=== PATIENT | female | born 1945 | race Caucasian/White ===

== ENCOUNTER → 2017-06-12 14:40 | Outpatient (CLI) | payer MEDICARE, OTHER, SELFPAY ==
--- NOTE | 2017-06-12 15:14 | RAD_ITS ---
STUDY: X-RAY - RIGHT SHOULDER REASON FOR EXAM: Female, 71 years old. Pain TECHNIQUE: 4 view(s) of the shoulder. COMPARISON: None. FINDINGS: Normal glenohumeral articulation. Normal acromioclavicular joint. Normal acromion. Normal humeral head and visualized proximal humerus. The soft tissue structures are unremarkable. Normal visualized pulmonary apex. RAD/Shoulder min 2 Views IMPRESSION: Normal x-ray examination of the shoulder. Electronically Signed: Derek Reyes MD at 22:26 EST Tel , Service support ,
--- NOTE | 2017-06-12 15:25 | RAD_ITS ---
STUDY: X-RAY - LEFT SHOULDER REASON FOR EXAM: Female, 71 years old. Pain TECHNIQUE: 4 view(s) of the shoulder. COMPARISON: None. FINDINGS: There is small calcification at the infraspinatus tendon insertion. Normal glenohumeral articulation. Normal acromioclavicular joint. Normal acromion. Normal humeral head and visualized proximal humerus. Normal visualized pulmonary apex. RAD/Shoulder min 2 Views IMPRESSION: Suggestion of mild insertional infraspinatus calcific tendinosis Electronically Signed: Derek Reyes MD at 22:25 EST Tel , Service support ,
== END ==
PROVIDERS: Family Provider Family Medicine Geriatric Medicine; PCP Family Medicine Geriatric Medicine; Visit Provider Internal Medicine Medical Oncology
DX: M25.519 Pain in unspecified shoulder (principal)
CPT/HCPCS: 73030

== ENCOUNTER → 2017-08-10 08:17 | Outpatient (CLI) | payer MEDICARE, OTHER, SELFPAY ==
[2017-08-10 09:54] LABS: Hematocrit 43.7 % (37-47); Mean Corp Hgb Conc 34.3 g/gl (32-36); Mean Corpuscular Hgb 31.3 pg (27.0-32.0); Mean Corpuscular Volume 91.2 fL (81-99); Mean Platelet Vol. 9.1 fl (6.2-12.0); Platelet Count 190 K/mm3 (150-450); RBC Distribution Width CV 12.8 % (11.6-14.6); RBC Distribution Width SD 41.7 fl (35.1-43.9); Red Blood Count 4.79 M/mm3 (4.2-5.4); White Blood Count 5.8 K/mm3 (4.4-11.0)
[2017-08-10 09:58] LABS: Scan Indicated on CBC? Y/N NO
[2017-08-10 10:22] LABS: Microalbumin,Random Urine 11.3 mg/L (NO RANGE EST.); Microalbumin:Creatinine Ratio 8.8 mg/g CRE (<30 mg/g CRE)
[2017-08-10 10:24] LABS: Albumin, Serum 3.5 g/dL (3.2-5.0); BUN 24 mg/dL (7-18); BUN/Creat Ratio 22.2 RATIO (10-20); Calcium,Total 8.5 mg/dL (8.5-10.1); Chloride 109 mmol/L (98-107); Creatinine, Serum 1.08 mg/dL (0.55-1.02); EST Glomerular Filtration Rate 53 mL/min (>60); Est Glom Filt Rate - Afr Amer 64 mL/min (>60); Glucose 84 mg/dL (74-106); Magnesium 2.2 mg/dL (1.6-2.6); Phosphorus 2.6 mg/dL (2.5-4.9); Potassium 3.9 mmol/L (3.5-5.1); Sodium Level 142 mmol/L (136-145)
[2017-08-10 10:43] LABS: PTHIN 109.1 pg/mL (18.4-80.1); Vitamin D,25 Hydroxy 58.8 ng/mL (29.95-100.01)
== END ==
PROVIDERS: Family Provider Family Medicine Geriatric Medicine; PCP Family Medicine Geriatric Medicine; Visit Provider Internal Medicine Nephrology
DX: E55.9 Vitamin D deficiency, unspecified (principal); N18.3 Chronic kidney disease, stage 3 (moderate); D63.1 Anemia in chronic kidney disease
CPT/HCPCS: 36415; 80069; 82043; 82306; 82570; 83735; 83970; 85027

== ENCOUNTER → 2017-09-04 12:38 | Outpatient (CLI) | payer MEDICARE, OTHER, SELFPAY ==
--- NOTE | 2017-09-04 12:40 | BI_ITS ---
MAMMOGRAPHY - BILATERAL SCREENING REASON FOR EXAM: Female, 71 years old. Routine annual screening examination. PERTINENT HISTORY: Aunt with breast cancer. TECHNIQUE: Digital bilateral breast sunita (3D mammographic acquisition) in the CC and MLO projections. 2-D mediolateral oblique (MLO) and craniocaudad (CC) views of both breasts were obtained. CAD: Full Field Digital Mammography with Computer Added Detection was performed. COMPARISON: Comparison is made with prior study dated August 31, 2016 and August 30, 2015. FINDINGS: Breast Composition: There are scattered areas of fibroglandular density. There are no dominant masses or suspicious calcifications. No other significant abnormalities are identified. There has been no significant change since the prior study. BI/SCREENING MAMM (CAD), BILAT IMPRESSION: Stable bilateral screening mammogram. Yearly follow-up mammogram recommended. (A) ASSESSMENT CATEGORY: BIRADS Category 1: Negative. A letter regarding these results will be sent to the patient by the facility within 30 days. Approximately 10% of breast cancers are not detected by mammography. A normal mammogram should not delay biopsy of a clinically suspicious abnormality. [id number] Electronically Signed: Amandeep Porter MD at 8:18 EDT Tel [phone], Service support ,
== END ==
PROVIDERS: Family Provider Family Medicine Geriatric Medicine; PCP Family Medicine Geriatric Medicine; Visit Provider Internal Medicine Medical Oncology
DX: Z12.31 Encounter for screening mammogram for malignant neoplasm of breast (principal)
CPT/HCPCS: 77063; 77067

== ENCOUNTER → 2017-10-24 10:13 | Outpatient (CLI) | payer MEDICARE, OTHER, SELFPAY ==
[2017-10-24 13:18] LABS: Absolute Lymphocyte Count 1.32 X10^3/ul (0.83-4.51); Absolute Neutrophil Count 3.9 X10^3/uL (2.0-7.7); Basophil# 0.02 X10^3/uL; Basophil% 0.3 % (0-1); Eosinophil# 0.09 X10^3/uL; Eosinophils% 1.5 % (0-5); Hematocrit 47.8 % (37-47); Hemoglobin 15.7 g/dl (12.0-15.0); Lymphocyte # 1.32 X10^3/ul (4.0); Lymphocyte % 22.7 % (19-41); Mean Corp Hgb Conc 32.8 g/gl (32-36); Mean Corpuscular Volume 91.4 fL (81-99); Mean Platelet Vol. 9.6 fl (6.2-12.0); Monocyte# 0.47 X10^3/uL; Monocyte% 8.1 % (0-10); Neutrophil # 3.91 X10^3/uL (2.7-7.7); Neutrophil % 67.2 % (47-70); Platelet Count 198 K/mm3 (150-450); RBC Distribution Width CV 13.2 % (11.6-14.6); RBC Distribution Width SD 43.6 fl (35.1-43.9); Red Blood Count 5.23 M/mm3 (4.2-5.4); White Blood Count 5.8 K/mm3 (4.4-11.0)
[2017-10-24 13:27] LABS: Vitamin D,25 Hydroxy 52.1 ng/mL (29.95-100.01)
[2017-10-24 13:29] LABS: POSITIVE COUNT NO; POSITIVE DIFFERENTIAL NO; POSITIVE MORPHOLOGY NO
[2017-10-24 13:34] LABS: ALB/GLOB Ratio 0.9 RATIO (0.9-2.4); AST(SGOT) 24 U/L (15-37); Alanine Aminotransfer ALT/SGPT 18 U/L (13-56); Albumin, Serum 3.6 g/dL (3.2-5.0); Alkaline Phosphatase 80 U/L (45-117); Anion Gap 7 (5-15); BUN 24 mg/dL (7-18); BUN/Creat Ratio 19.2 RATIO (10-20); Chloride 107 mmol/L (98-107); Creatinine, Serum 1.25 mg/dL (0.55-1.02); EST Glomerular Filtration Rate 45 mL/min (>60); Est Glom Filt Rate - Afr Amer 54 mL/min (>60); Globulin 4.2 g/dL (2.2-4.2); Glucose 84 mg/dL (74-106); Protein, Total 7.8 g/dL (6.4-8.2); Sodium Level 140 mmol/L (136-145); Thyroid Stim Hormone (TSH) 1.65 uIU/mL (0.358-3.74)
== END ==
PROVIDERS: Family Provider Family Medicine Geriatric Medicine; PCP Family Medicine Geriatric Medicine; Visit Provider Family Medicine Geriatric Medicine
DX: R53.83 Other fatigue (principal); E55.9 Vitamin D deficiency, unspecified
CPT/HCPCS: 36415; 80053; 82306; 84443; 85025

== ENCOUNTER → 2018-02-08 07:59 | Outpatient (CLI) | payer MEDICARE, OTHER, SELFPAY ==
[2018-02-08 08:19] LABS: Bacteria 0 SEEN /hpf (None Seen); Mucous, Urine 0 SEEN /hpf (<or=2+)
[2018-02-08 08:52] LABS: Hematocrit 46.9 % (37-47); Hemoglobin 15.3 g/dl (12.0-15.0); Mean Corp Hgb Conc 32.6 g/gl (32-36); Mean Platelet Vol. 9.2 fl (6.2-12.0); Platelet Count 200 K/mm3 (150-450); RBC Distribution Width CV 12.9 % (11.6-14.6); RBC Distribution Width SD 43.3 fl (35.1-43.9); Scan Indicated on CBC? Y/N NO; White Blood Count 5.2 K/mm3 (4.4-11.0)
[2018-02-08 08:55] LABS: Color, Urine Yellow (Yellow); Glucose, Dipstick Normal (Normal); Ketone-Dipstick Negative (Negative); Leukocyte Esterase-Dipstick 500 /ul (Negative); Nitrite-Dipstick Negative (Negative); Occult Blood-Urine 25 /ul (Negative); Protein-Dipstick Negative (Negative); Urine Bilirubin Dipstick Negative (Negative); Urine Clarity Sl. Cloudy (Clear); Urine Urobilinogen Normal (Normal); Urine pH 6.5 (5.0 - 8.0)
[2018-02-08 09:02] LABS: Red Blood Cells-Urine 0-5 SEEN /hpf (0-5); Squamous Epithelial Cells - UA 0-5 SEEN /hpf (5-10); White Blood Cells 25-50 SEEN /hpf (0-5)
[2018-02-08 09:15] LABS: Microalbumin,Random Urine 8.3 mg/L (NO RANGE EST.); Microalbumin:Creatinine Ratio 8.8 mg/g CRE (<30 mg/g CRE); Protein, Urine (Random) < 6.0 mg/dL (<11.9)
[2018-02-08 09:25] LABS: Albumin, Serum 3.5 g/dL (3.2-5.0); BUN 27 mg/dL (7-18); BUN/Creat Ratio 21.4 RATIO (10-20); Calcium,Total 8.7 mg/dL (8.5-10.1); Chloride 107 mmol/L (98-107); Creatinine, Serum 1.26 mg/dL (0.55-1.02); EST Glomerular Filtration Rate 44 mL/min (>60); Est Glom Filt Rate - Afr Amer 53 mL/min (>60); Glucose 90 mg/dL (74-106); Phosphorus 2.5 mg/dL (2.5-4.9); Potassium 4.4 mmol/L (3.5-5.1); Sodium Level 141 mmol/L (136-145)
[2018-02-08 09:31] LABS: PTHIN 67.2 pg/mL (18.4-80.1)
[2018-02-12 13:42] LABS: Vitamin D 1,25-Dihydroxy 45.6 pg/mL (19.9-79.3)
== END ==
PROVIDERS: Family Provider Family Medicine Geriatric Medicine; PCP Family Medicine Geriatric Medicine; Referring Provider Internal Medicine Nephrology; Visit Provider Internal Medicine Nephrology
DX: N18.3 Chronic kidney disease, stage 3 (moderate) (principal); E55.9 Vitamin D deficiency, unspecified; D63.1 Anemia in chronic kidney disease
CPT/HCPCS: 36415; 80069; 81001; 82043; 82570; 82652; 83970; 84156; 85027

== ENCOUNTER → 2018-04-25 13:15 | Outpatient (CLI) | payer MEDICARE, OTHER, SELFPAY ==
[2017-11-06 13:43] VITALS: BMI 26.2
[2018-04-25 14:01] LABS: Absolute Lymphocyte Count 1.67 X10^3/ul (0.83-4.51); Absolute Neutrophil Count 4.8 X10^3/uL (2.0-7.7); Basophil# 0.04 X10^3/uL; Basophil% 0.6 % (0-1); Eosinophil# 0.11 X10^3/uL; Eosinophils% 1.6 % (0-5); Hematocrit 48.3 % (37-47); Hemoglobin 15.6 g/dl (12.0-15.0); Lymphocyte # 1.67 X10^3/ul (4.0); Lymphocyte % 24.2 % (19-41); Mean Corp Hgb Conc 32.3 g/gl (32-36); Mean Corpuscular Hgb 30.2 pg (27.0-32.0); Mean Corpuscular Volume 93.6 fL (81-99); Mean Platelet Vol. 9.5 fl (6.2-12.0); Monocyte# 0.32 X10^3/uL; Monocyte% 4.6 % (0-10); Neutrophil # 4.75 X10^3/uL (2.7-7.7); Neutrophil % 68.9 % (47-70); Platelet Count 217 K/mm3 (150-450); RBC Distribution Width CV 13.2 % (11.6-14.6); RBC Distribution Width SD 45.1 fl (35.1-43.9); Red Blood Count 5.16 M/mm3 (4.2-5.4); White Blood Count 6.9 K/mm3 (4.4-11.0)
[2018-04-25 14:06] LABS: POSITIVE COUNT NO; POSITIVE DIFFERENTIAL NO; POSITIVE MORPHOLOGY NO
[2018-04-25 14:16] LABS: Vitamin D,25 Hydroxy 46.3 ng/mL (29.95-100.01)
[2018-04-25 14:22] LABS: AST(SGOT) 24 U/L (15-37); Alanine Aminotransfer ALT/SGPT 19 U/L (13-56); Albumin, Serum 3.8 g/dL (3.2-5.0); Alkaline Phosphatase 92 U/L (45-117); Anion Gap 8 (5-15); BUN 23 mg/dL (7-18); BUN/Creat Ratio 19.7 RATIO (10-20); Calcium,Total 8.7 mg/dL (8.5-10.1); Chloride 106 mmol/L (98-107); Creatinine, Serum 1.17 mg/dL (0.55-1.02); EST Glomerular Filtration Rate 48 mL/min (>60); Est Glom Filt Rate - Afr Amer 58 mL/min (>60); Glucose 87 mg/dL (74-106); Potassium 3.9 mmol/L (3.5-5.1); Protein, Total 7.8 g/dL (6.4-8.2); Sodium Level 139 mmol/L (136-145); Thyroid Stim Hormone (TSH) 1.41 uIU/mL (0.358-3.74); Uric Acid 5.6 mg/dL (2.6-6.0)
--- OUTSIDE RECORDS SUMMARY | 2018-06-30 06:10 | XMS RPT_ITS ---
:1945 Author Organization OHIP Support Name Relationship Address Phone MATIAS COLEMAN Unavailable [address] + [place] [address] LOGAN LUX Unavailable [address] + [place] [address] R Unavailable Unavailable Unavailable MARTA COLEMANY Unavailable [address] + [place] [address] LOGAN LUX Unavailable [address] + [place] [address] R Unavailable Unavailable Unavailable COLEMANMARTA SIMONY Unavailable [address] + [place] [address] LOGAN LUX Unavailable [address] + [place] [address] R Unavailable Unavailable Unavailable COLEMANMARTA SIMONY Unavailable [address] + [place] [address] LOGAN LUX Unavailable [address] + [place] [address] R Unavailable Unavailable Unavailable COLEMANMARTA SIMONY Unavailable [address] + [place] [address] LOGAN LUX Unavailable [address] + [place] [address] R Unavailable Unavailable Unavailable COLEMANMARTAY Unavailable [address] + [place] [address] LOGAN LUX Unavailable [address] + [place] [address] R Unavailable Unavailable Unavailable COLEMANMARTAY Unavailable [address] + [place] [address] LOGAN LUX Unavailable [address] + [place] [address] R Unavailable Unavailable Unavailable COLEMANMARTA SIMONY Unavailable [address] + [place] [address] LOGAN LUX Unavailable [address] + [place] [address] R Unavailable Unavailable Unavailable COLEMANMARTA SIMONY Unavailable [address] + [place] [address] LOGAN LUX Unavailable [address] + [place] [address] R Unavailable Unavailable Unavailable COLEMANMARTAY Unavailable [address] + [place] [address] LOGAN LUX Unavailable [address] + [place] [address] R Unavailable Unavailable Unavailable COLEMANMARTAY Unavailable [address] + [place] [address] LOGAN LUX Unavailable [address] + [place] [address] R Unavailable Unavailable Unavailable COLEMANMARTAY Unavailable [address] + [place] [address] LOGAN LUX Unavailable [address] + [place] [address] R Unavailable Unavailable Unavailable Care Team Providers Name Role Phone Jefferson, Jonathan Chi Attending Unavailable Jefferson, Jonathan Chi Primary Care Unavailable Nitin Christine Attending Unavailable Jefferson, Jonathan Chi Primary Care Unavailable Tanphaichitr, Natthavat Referring Unavailable Nitin Christine Attending Unavailable Nitin Christine Referring Unavailable Jefferson, Jonathan Chi Primary Care Unavailable Nitin Christine Attending Unavailable Tanphaichitr, Natthavat Referring Unavailable Jefferson, Jonathan Chi Primary Care Unavailable Nitin Christine Consulting Unavailable Nitin Christine Attending Unavailable Tanphaichitr, Natthavat Referring Unavailable Jefferson, Jonathan Chi Primary Care Unavailable Nitin Christine Consulting Unavailable Murray Atkins Attending Unavailable Jefferson, Jonathan Chi Referring Unavailable Jefferson, Jonathan Chi Primary Care Unavailable Tanphaichitr, Natthavat Attending Unavailable Tanphaichitr, Natthavat Referring Unavailable Jefferson, Jonathan Chi Primary Care Unavailable Murray Atkins Attending Unavailable Jefferson, Jonathan Chi Referring Unavailable Jefferson, Jonathan Chi Primary Care Unavailable Nitin Christine Attending Unavailable Nitin Christine Referring Unavailable Jefferson, Jonathan Chi Primary Care Unavailable Jefferson, Jonathan Chi Attending Unavailable Jefferson, Jonathan Chi Primary Care Unavailable Nitin Christine Attending Unavailable Tanphaichitr, Natthavat Referring Unavailable Jefferson, Jonathan Chi Primary Care Unavailable Nitin Christine Consulting Unavailable Lonny Covarrubias Attending Unavailable Lonny Covarrubias Referring Unavailable Jefferson, Jonathan Chi Primary Care Unavailable PROBLEMS PROBLEMS DATE TYPE CONDITION / CODE ATTENDING STATUS SOURCE 04/30/2018 Unknown 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 / C91.11(ICD-10) 02/08/2018 Unknown D63.1 - Anemia in Lonny Covarrubias Active [facility] disease / [facility] D63.1(ICD-10) Repository 02/08/2018 Unknown N18.3 - Chronic [facility] Active [place] kidney disease, [facility] stage 3 [facility] (moderate) / Repository N18.3(ICD-10) 11/06/2017 Unknown C90.01 - Multiple Nitin Christine Active [facility] myeloma in [facility] remission / Hospital C90.01(ICD-10) Repository 09/04/2017 Unknown Z12.31 - Nitin Christine Active [place] Encounter for [facility] screening Hospital mammogram for Repository malignant neoplasm of breast / Z12.31(ICD-10) 08/10/2017 Unknown E55.9 - Vitamin D Tanphaichitr, Active [place] deficiency, Natthavat [facility] unspecified / Hospital E55.9(ICD-10) Repository 06/12/2017 Unknown M25.519 - Pain in Nitin Christine Active [place] unspecified [facility] shoulder / Hospital M25.519(ICD-10) Repository PROCEDURES PROCEDURES No Procedure Records FoundRESULTS RESULTS PROTEIN ELECTROPH, S Collected: 04/30/2018 Status: F Source: [place] 9:27 AM [facility] REPOSITORY Order Comment: Reason for Laboratory Test . Is Patient Fasting? Y TYPE CODE TESTS RESULT OUT OF RANGE REFERENCE UNITS LAB L3100.3500 6.0-8.5 g/dL Normal PROTEIN,TOTAL 6.9 LAB L3100.3600 2.9-4.4 g/dL Normal ALBUMIN 3.6 LAB L3100.3700 0.0-0.4 g/dL Normal ALPHA-1 GLOBUL 0.2 LAB L3100.3800 0.4-1.0 g/dL Normal ALPHA-2 GLOBUL 0.8 LAB L3100.3900 0.7-1.3 g/dL Normal BETA GLOBULIN 1.1 LAB L3100.4000 0.4-1.8 g/dL Normal GAMMA GLOBULIN 1.2 LAB L3100.4110 Normal M-SPIKE Result Comment: Not Observed LAB L3100.4200 2.2-3.9 g/dL GLOBULIN, TOTAL Normal 3.3 LAB L3100.4300 0.7-1.7 A/G RATIO Normal 1.1 LAB L3100.4320 . INTERPRETATION Normal Comment Result Comment: Protein electrophoresis scan will follow via computer, mail, or quarter section ironer delivery. LAB L3100.4340 . Normal NOTE: Comment Result Comment: The SPE pattern appears essentially unremarkable. Evidence of monoclonal protein is not apparent. Performed By: #### L3100.3450, L3130.0010, L3200.1200 #### [facility] (refer to report for specific site) refer to report for address and phone number KAPPA LAMBDA LIGHT Collected: 04/30/2018 Status: F Source: [facility] 9:27 AM [facility] Order Comment: Reason for Laboratory Test . Is Patient Fasting? Y TYPE CODE TESTS RESULT OUT OF RANGE REFERENCE UNITS LAB L3130.0200 3.3-19.4 mg/L Normal FR KAPPA LT 18.9 CHN LAB L3130.0300 5.7-26.3 mg/L Normal FR LAMBDA LT 19.0 CH LAB L3130.0400 0.26-1.65 Normal KAPPA/LAMBDA 0.99 % Result Comment: Performed at: [facility] [id number] Arbitrator: Stephen Cruz PhD, Phone: [phone] Performed By: #### L3100.3450, L3130.0010, L3200.1200 #### [facility] (refer to report for specific site) refer to report for address and phone number IMMUNOGLOBULINS G/A/M Collected: 04/30/2018 Status: F Source: [place] 9:27 AM [facility] Order Comment: Reason for Laboratory Test . Is Patient Fasting? Y TYPE CODE TESTS RESULT OUT OF RANGE REFERENCE UNITS LAB L3200.8096 315-1665 mg/dL Normal IMMUNO G 1102 LAB L3200.1400 64-422 mg/dL Normal IMMUNO A 233 LAB L3200.1500 26-217 mg/dL Normal IMMUNOGL M 82 Performed By: #### L3100.3450, L3130.0010, L3200.1200 #### [facility] (refer to report for specific site) refer to report for address and phone number CBC W/DIFF, AUTOMATED Collected: 04/25/2018 Status: F Source: [place] 1:20 PM [facility] TYPE CODE TESTS RESULT OUT OF RANGE REFERENCE UNITS LAB L100.1000 4.4-11.0 K/mm3 Normal WBC 6.9 LAB L100.1200 4.2-5.4 M/mm3 Normal RBC 5.16 LAB L100.1300 12.0-15.0 g/dl High HGB 15.6 LAB L100.1400 37-47 % High HCT 48.3 LAB L100.1500 81-99 fL Normal MCV 93.6 LAB L100.1600 27.0-32.0 pg Normal MCH 30.2 LAB L100.1700 32-36 g/gl Normal MCHC 32.3 LAB L100.1810 11.6-14.6 % Normal RDW CV 13.2 LAB L100.1820 35.1-43.9 fl High RDW SD 45.1 LAB L100.1900 150-450 K/mm3 Normal PLT 217 LAB L100.2000 6.2-12.0 fl Normal MPV 9.5 LAB L100.2100 47-70 % Normal NEUT% 68.9 LAB L100.2200 19-41 % Normal LY% 24.2 LAB L100.2300 0-10 % Normal MONO% 4.6 LAB L100.2400 0-5 % Normal EO% 1.6 LAB L100.2500 0-1 % Normal BASO% 0.6 LAB L100.2550 0.0-0.9 % Normal IM GRAN % 0.100 Result Comment: IG% - Immature Granulocytes (promyelocytes, myelocytes and metamyelocytes) > 1% indicates that a LEFT SHIFT is Present. LAB L100.2620 2.0-7.7 X10 3/uL Normal Absolute Neut 4.8 LAB L100.2720 0.83-4.51 X10 3/ul Normal Absolute Lymph 1.67 Performed By: #### L100.0100 #### [facility] [place], [address] VITAMIN D,25 HYDROXY Collected: 04/25/2018 Status: F Source: [place] 1:20 PM [facility] TYPE CODE TESTS RESULT OUT OF RANGE REFERENCE UNITS LAB L506.1000 29.95-100.01 ng/mL Normal Vitamin D 46.3 25-OH Result Comment: Vitamin D 25(OH) Status Range Deficiency <20 ng/mL (50nmol/L) Insuffciency 20 - 30 ng/mL (50 - 75 nmol/L) Sufficiency 30 - 100 ng/mL (75 - 250 nmol/L) Toxicity >100 ng/mL (>250 nmol/L) Performed By: #### L506.1000 #### [facility] [address] [place], [address] COMPREHENSIVE METABOLIC Collected: 04/25/2018 Status: F Source: [place] [facility] 1:20 PM [facility] TYPE CODE TESTS RESULT OUT OF RANGE REFERENCE UNITS LAB L501.0100 74-106 mg/dL Normal GLU 87 Result Comment: Please note revised GLUCOSE reference range effective 2017. LAB L501.1000 7-18 mg/dL High BUN 23 LAB L501.1100 0.55-1.02 mg/dL High CREAT,SERUM 1.17 Result Comment: The validity of the calculated GFR AND GFRAA in patients over 70 years has not been determined. Clinical correlation is essential. LAB L501.1110 >60 mL/min Low EST GFR 48 Result Comment: Non- GFR Calc LAB L501.1115 >60 mL/min Low EST GFR - AA 58 Result Comment: GFR Calc LAB L501.1300 10-20 RATIO Normal BUN/CRE 19.7 LAB L501.1500 6.4-8.2 g/dL T Normal PROT 7.8 LAB L501.1800 3.2-5.0 g/dL Normal ALB 3.8 LAB L501.1950 2.2-4.2 g/dL Normal GLOB 4.0 LAB L501.2000 0.9-2.4 RATIO Normal A/G 1.0 LAB L501.2200 8.5-10.1 mg/dL CA Normal 8.7 LAB L501.4100 15-37 U/L Normal AST 24 LAB L501.4305 45-117 U/L Normal ALK P 92 LAB L501.4405 13-56 U/L Normal ALT 19 LAB L501.4600 0.20-1.00 mg/dL T Normal BILI 0.50 LAB L501.5300 136-145 mmol/L NA Normal 139 LAB L501.5600 3.5-5.1 mmol/L K Normal 3.9 LAB L501.5900 98-107 mmol/L CL Normal 106 LAB L501.6100 21.0-32.0 mmol/L Normal CO2 25.0 LAB L501.6200 5-15 Normal GAP 8 Performed By: #### L500.4050, L501.1400, L501.9520 #### [facility] [address] [place], [address] URIC ACID Collected: 04/25/2018 Status: F Source: [place] 1:20 PM [facility] TYPE CODE TESTS RESULT OUT OF RANGE REFERENCE UNITS LAB L501.1400 2.6-6.0 mg/dL Normal URIC 5.6 Result Comment: The drugs N-Acetylcysteine and Metamizole may falsely depress this assay. Performed By: #### L500.4050, L501.1400, L501.9520 #### [facility] [address] [place], [place], [address] THYROID STIM HORMONE Collected: 04/25/2018 Status: F Source: [place] ([facility]) 1:20 PM [facility] TYPE CODE TESTS RESULT OUT OF RANGE REFERENCE UNITS LAB L501.9520 0.358-3.74 uIU/mL Normal TSH 1.41 Performed By: #### L500.4050, L501.1400, L501.9520 #### [facility] [address] [place], [place], [address] CBC-COMPLETE BLOOD CNT Collected: 02/08/2018 Status: F Source: [place] NO DIFF 8:17 AM [facility] TYPE CODE TESTS RESULT OUT OF RANGE REFERENCE UNITS LAB L100.1000 4.4-11.0 K/mm3 Normal WBC 5.2 LAB L100.1200 4.2-5.4 M/mm3 Normal RBC 5.10 LAB L100.1300 12.0-15.0 g/dl High HGB 15.3 LAB L100.1400 37-47 % Normal HCT 46.9 LAB L100.1500 81-99 fL Normal MCV 92.0 LAB L100.1600 27.0-32.0 pg Normal MCH 30.0 LAB L100.1700 32-36 g/gl Normal MCHC 32.6 LAB L100.1810 11.6-14.6 % Normal RDW CV 12.9 LAB L100.1820 35.1-43.9 fl Normal RDW SD 43.3 LAB L100.1900 150-450 K/mm3 Normal PLT 200 LAB L100.2000 6.2-12.0 fl Normal MPV 9.2 Performed By: #### L100.0500 #### [facility] [address] [place], [address] URINALYSIS, COMPLETE Collected: 02/08/2018 Status: F Source: [place] 8:17 AM [facility] Order Comment: How was Urine Obtained? CLEAN CATCH TYPE CODE TESTS RESULT OUT OF RANGE REFERENCE UNITS LAB L400.3000 Yellow COLOR Normal Yellow LAB L400.3050 Clear Normal CLARITY Sl. Cloudy LAB L400.3200 Normal mg/dl Normal GLUCOSE, UR Normal LAB L400.3300 Negative mg/dL Normal BILIRUBIN URINE Negative LAB L400.3400 Negative mg/dl Normal KETONE UR Negative LAB L400.3465 1.002-1.030 Normal SP.GR. DIPSTX 1.010 LAB L400.3550 5.0 - 8.0 pH UR Normal 6.5 LAB L400.3600 Negative mg/dl PROT Normal DIPSTX Negative LAB L400.3700 Normal mg/dl Normal UROBILI Normal LAB L400.3750 Negative Normal NITRITE UR Negative LAB L400.3780 Negative /ul High 25 OCCULT BLOOD-UR LAB L400.3800 Negative /ul High LEUK ESTERASE 500 LAB L400.4050 0-5 /hpf WBC Normal 25-50 SEEN LAB L400.4100 0-5 /hpf Normal RBC-UA 0-5 SEEN LAB L400.4150 5-10 /hpf SQUAM Normal EPI 0-5 SEEN LAB L400.4300 None Seen /hpf 0 Normal BACTERIA SEEN LAB L400.4350 <or=2+ /hpf 0 Normal MUCUS, URINE SEEN Performed By: #### L400.0001 #### [facility] [address] [place], [place], [id number] PROTEIN+CREATININE Collected: Status: F Source: [place] RATIO,URINE 02/08/2018 8:17 AM [facility] TYPE CODE TESTS RESULT OUT OF RANGE REFERENCE UNITS LAB L501.1200 NO RANGE EST. mg/dL 94.30 Normal UR CREAT LAB L501.1930 <11.9 mg/dL < 6.0 Normal PROTEIN,UR. RAN. LAB L501.1940 0-200 mg/g CRE Test Normal not performed PROT:CRE RATIO Performed By: #### L501.0900, L502.0250 #### [facility] [address] [place], [place], [id number] MICROALB:CREAT Collected: 02/08/2018 Status: F Source: [place] MCCOLLUM,RANDOM UR 8:17 AM [facility] TYPE CODE TESTS RESULT OUT OF RANGE REFERENCE UNITS LAB L502.0500 NO RANGE EST. mg/L Normal 8.3 MICROALBUMIN ,UR LAB L502.0600 <30 mg/g CRE mg/g CRE Normal 8.8 MALB:CREAT Performed By: #### L501.0900, L502.0250 #### [facility] [address] [place], [place], [id number] RENAL PROFILE Collected: 02/08/2018 Status: F Source: [place] 8:17 AM [facility] TYPE CODE TESTS RESULT OUT OF RANGE REFERENCE UNITS LAB L501.0100 74-106 mg/dL Normal GLU 90 Result Comment: Please note revised GLUCOSE reference range effective 2017. LAB L501.1000 7-18 mg/dL High BUN 27 LAB L501.1100 0.55-1.02 mg/dL High CREAT,SERUM 1.26 Result Comment: The validity of the calculated GFR AND GFRAA in patients over 70 years has not been determined. Clinical correlation is essential. LAB L501.1110 >60 mL/min Low EST GFR 44 Result Comment: Non- GFR Calc LAB L501.1115 >60 mL/min Low EST GFR - AA 53 Result Comment: GFR Calc LAB L501.1300 10-20 RATIO High BUN/CRE 21.4 LAB L501.1800 3.2-5.0 g/dL Normal ALB 3.5 LAB L501.2200 8.5-10.1 mg/dL CA Normal 8.7 LAB L501.2300 2.5-4.9 mg/dL Normal PHOS 2.5 LAB L501.5300 136-145 mmol/L NA Normal 141 LAB L501.5600 3.5-5.1 mmol/L K Normal 4.4 LAB L501.5900 98-107 mmol/L CL Normal 107 LAB L501.6100 21.0-32.0 mmol/L Normal CO2 27.0 Performed By: #### L500.3600 #### [facility] [address] [place], [address] PTHIN Collected: 02/08/2018 Status: F Source: [place] 8:17 AM [facility] TYPE CODE TESTS RESULT OUT OF RANGE REFERENCE UNITS LAB L509.1000 18.4-80.1 pg/mL Normal PTHIN 67.2 Performed By: #### L509.1000 #### [facility] [address] [place], [address] VITAMIN D 1,25-DIHYDROXY Collected: 02/08/2018 Status: F Source: [place] 8:17 AM [facility] TYPE CODE TESTS RESULT OUT OF RANGE REFERENCE UNITS LAB L3300.0960 19.9-79.3 pg/mL Normal VITD 1,25 45.6 [address]257 Result Comment: Performed at: - [facility] [id number] Arbitrator: Melissa Merino MD, Phone: [phone] Performed By: #### L3300.0960 #### [facility] (refer to report for specific site) refer to report for address and phone number ONCOLOGY VISIT REPORT Observed: 11/06/2017 Status: F Source: [place] 3:49 PM [facility] [address] [place] [address] OFFICE VISIT Date of Service: 11/06/17 1432 MR#: [id number] Acct: [id number] Name: FRIEDA COLEMAN Rep #: [id number] : 1945 From: Nitin Christine MD Age/Sex: 72/F Location: [facility] Status: Signed Subjective - Date of Service Date of Service:: 11/06/17 - Chief Complaint F/u for Multiple Myeloma. - History of Present Illness Ms. Frieda Coleman is very pleasant 72y.o.woman was diagnosed with Multiple Myeloma IgG type on 08/03/2010 associated with hypercalcemia, renal failure and lytic lesions. She was treated with Velcade, Decadron from 08/2010 to 02/2011 followed by 4 cycles of RVD from 03/2011 to 06/2011. She also received Zometa which was discontinued because of renal dysfunction. She had complete response with no m-spike on SPEP so started maintenance Revlimid on 06/27/2011 and was discontinued on 05/15/2016. She is on observation. Left and Right shoulder pain has resolved. Comes for follow up. - Past Medical/Social History Past Medical History Past Medical History: Anemia,Hypertension,Kidney disease,Osteoporosis Cancer: Multiple myeloma Past Surgical History Surgical: Colonoscopy,Tonsillectomy Family History Paternal Past Medical History: Heart disease,Hypertension Maternal Past Medical History: Hypertension Social History Smoking Status Never smoker Review of Systems Constitutional:: Denies: Fever, Sweats, Weight loss, Appetite change, Chills Cardiovascular:: Denies: Chest pain, Palpitations, Dyspnea on exertion, Orthopnea, PND, Shortness of breath Respiratory: Denies: Cough, Hemoptysis, Shortness of Breath, Wheezing Gastrointestinal:: Denies: Abdominal pain, Nausea, Vomiting, Diarrhea, Constipation, Hematochezia Genitourinary: Denies: Dysuria, Hematuria, 15, Flank pain Musculoskeletal:: Denies: Back pain, Myalgia, Arthralgia Skin: Denies: Rash, Skin Changes, Wounds Neurological:: Denies: Headache, Dizziness, Visual changes, Tinnitus, Hearing loss Psychiatric: Denies: Anxiety, Depression, Homicidal Ideations, Suicidal Ideations Vital Signs Height 5 ft 3 in Weight: 67.132 kg Weight in Pounds 148.0 lbs Pulse Ox 99 - Physical Exam General: Alert, Oriented x3, No apparent distress HEENT: Atraumatic, PERRLA, EOMI, Normocephalic Oropharynx:: Dry mucosa Neck:: Supple, Trachea midline. Negative for: JVD, bilateral Cardiac:: Regular rate, Regular rhythm, Normal S1, Normal S2. Negative for: Murmur Lungs: Clear to auscultation, Excusion symmetrical. Negative for: Rhonchi, Wheezes Abdomen:: Bowel sounds x 4, Soft, Non-tender, Non-distended. Negative for: Hepatosplenomegaly Extremities:: Negative for: Cyanosis, Edema Neurological: Neuro grossly intact Skin:: Negative for: Lesions, Rash, Petechiae, Ecchymosis Psychiatric:: Appropriate affect, Euthymic Lymphatics:: Negative for: Cervical lymphadenopathy, Supraclavicular lymphadenopathy, Axillary lymphadenopathy Laboratory Data: Laboratory Tests Assessment and Plan Multiple Myeloma with complete remission. No M-spike. Plan is to continue observation for Multiple Myeloma. RTC 6 months with CBC/CMP/SPEP/SLC/IG Levels. Medications: Prescriptions This Visit Medication Instructions Recorded Primary Care Provider: Jonathan Paulino Referring Provider: Jose Martin Saucedo - Problem List (1) Multiple myeloma in remission Status: Chronic Code Visit Office Visits / Consults: [id number] OV L3 Est 11/06/17 1549 <Electronically signed by Nitin Christine MD> Date Nitin Christine MD Cosigner Signature: Date (if applicable) CC: CBC W/DIFF, AUTOMATED Collected: 10/30/2017 Status: F Source: [place] 9:06 AM [facility] Order Comment: Reason for Laboratory Test . TYPE CODE TESTS RESULT OUT OF RANGE REFERENCE UNITS LAB L100.1000 4.4-11.0 K/mm3 Normal WBC 5.6 LAB L100.1200 4.2-5.4 M/mm3 Normal RBC 4.97 LAB L100.1300 12.0-15.0 g/dl Normal HGB 14.9 LAB L100.1400 37-47 % Normal HCT 44.7 LAB L100.1500 81-99 fL Normal MCV 89.9 LAB L100.1600 27.0-32.0 pg Normal MCH 30.0 LAB L100.1700 32-36 g/gl Normal MCHC 33.3 LAB L100.1810 11.6-14.6 % Normal RDW CV 13.0 LAB L100.1820 35.1-43.9 fl Normal RDW SD 42.3 LAB L100.1900 150-450 K/mm3 Normal PLT 197 LAB L100.2000 6.2-12.0 fl Normal MPV 9.0 LAB L100.2100 47-70 % Normal NEUT% 65.0 LAB L100.2200 19-41 % Normal LY% 26.2 LAB L100.2300 0-10 % Normal MONO% 6.2 LAB L100.2400 0-5 % Normal EO% 2.0 LAB L100.2500 0-1 % Normal BASO% 0.4 LAB L100.2550 0.0-0.9 % Normal IM GRAN % 0.200 Result Comment: IG% - Immature Granulocytes (promyelocytes, myelocytes and metamyelocytes) > 1% indicates that a LEFT SHIFT is Present. LAB L100.2620 2.0-7.7 X10 3/uL Normal Absolute Neut 3.7 LAB L100.2720 0.83-4.51 X10 3/ul Normal Absolute Lymph 1.47 Performed By: #### L100.0100 #### [facility] [address] [place], [place], [address] COMPREHENSIVE METABOLIC Collected: 10/30/2017 Status: F Source: [facility] 9:06 AM [facility] Order Comment: Reason for Laboratory Test . TYPE CODE TESTS RESULT OUT OF RANGE REFERENCE UNITS LAB L501.0100 74-106 mg/dL High GLU 114 Result Comment: Fasting Glucose result from 100 to 125 mg/dL suggests IMPAIRED HOMEOSTASIS per A.D.A. criteria. Please note revised GLUCOSE reference range effective 2017. LAB L501.1000 7-18 mg/dL High BUN 25 LAB L501.1100 0.55-1.02 mg/dL High CREAT,SERUM 1.29 Result Comment: The validity of the calculated GFR AND GFRAA in patients over 70 years has not been determined. Clinical correlation is essential. LAB L501.1110 >60 mL/min Low EST GFR 43 Result Comment: Non- GFR Calc LAB L501.1115 >60 mL/min Low EST GFR - AA 52 Result Comment: GFR Calc LAB L501.1255 ml/min Normal Estimated CRCL 31.65 LAB L501.1300 10-20 RATIO Normal BUN/CRE 19.4 LAB L501.1500 6.4-8. g/dL Normal 2 T PROT 7.5 LAB L501.1800 3.2-5. g/dL Normal 0 ALB 3.6 LAB L501.1950 2.2-4. g/dL Normal 2 GLOB 3.9 LAB L501.2000 0.9-2. RATIO Normal 4 A/G 0.9 LAB L501.2200 8.5-10 mg/dL Normal .1 CA 8.7 LAB L501.4100 15-37 U/L Normal AST 21 LAB L501.4305 45-117 U/L Normal ALK P 79 LAB L501.4405 13-56 U/L Normal ALT 17 LAB L501.4600 0.20-1 mg/dL Normal .00 T BILI 0.40 LAB L501.5300 136-14 mmol/L Normal 5 NA 141 LAB L501.5600 3.5-5. mmol/L Normal 1 K 4.0 LAB L501.5900 98-107 mmol/L High CL 109 LAB L501.6100 21.0-3 mmol/L Normal 2.0 CO2 24.0 LAB L501.6200 5-15 Normal GAP 8 Performed By: #### L500.4050 #### [facility] [address] [place], [place], [address] #### L3100.3450, L3130.0010, L3200.1200 #### [facility] (refer to report for specific site) refer to report for address and phone number PROTEIN ELECTROPH, S Collected: 10/30/2017 Status: F Source: [place] 9:06 AM [facility] Order Comment: Reason for Laboratory Test . Is Patient Fasting? N TYPE CODE TESTS RESULT OUT OF RANGE REFERENCE UNITS LAB L3100.3500 6.0-8.5 g/dL Normal PROTEIN,TOTAL 6.7 LAB L3100.3600 2.9-4.4 g/dL Normal ALBUMIN 3.5 LAB L3100.3700 0.0-0.4 g/dL Normal ALPHA-1 GLOBUL 0.2 LAB L3100.3800 0.4-1.0 g/dL Normal ALPHA-2 GLOBUL 0.7 LAB L3100.3900 0.7-1.3 g/dL Normal BETA GLOBULIN 1.1 LAB L3100.4000 0.4-1.8 g/dL Normal GAMMA GLOBULIN 1.2 LAB L3100.4110 Normal M-SPIKE Result Comment: Not Observed LAB L3100.4200 2.2-3.9 g/dL GLOBULIN, TOTAL Normal 3.2 LAB L3100.4300 0.7-1.7 A/G RATIO Normal 1.1 LAB L3100.4320 . INTERPRETATION Normal Comment Result Comment: Protein electrophoresis scan will follow via computer, mail, or quarter section ironer delivery. LAB L3100.4340 . Normal NOTE: Comment Result Comment: The SPE pattern appears essentially unremarkable. Evidence of monoclonal protein is not apparent. Performed By: #### L500.4050 #### [facility] [address] [place] [address]. [place], [place], [address] #### L3100.3450, L3130.0010, L3200.1200 #### [facility] (refer to report for specific site) refer to report for address and phone number KAPPA LAMBDA LIGHT Collected: 10/30/2017 Status: F Source: [facility] 9:06 AM [facility] Order Comment: Reason for Laboratory Test . Is Patient Fasting? N TYPE CODE TESTS RESULT OUT OF RANGE REFERENCE UNITS LAB L3130.0200 3.3-19.4 mg/L High FR KAPPA LT 22.3 CHN LAB L3130.0300 5.7-26.3 mg/L Normal FR LAMBDA LT 24.8 CH LAB L3130.0400 0.26-1.65 Normal KAPPA/LAMBDA 0.90 % Result Comment: Performed at: - [facility] [id number] Arbitrator: Stephen Cruz PhD, Phone: [phone] Performed By: #### L500.4050 #### [facility] [address] [place], [address] #### L3100.3450, L3130.0010, L3200.1200 #### [facility] (refer to report for specific site) refer to report for address and phone number IMMUNOGLOBULINS G/A/M Collected: 10/30/2017 Status: F Source: [place] 9:06 AM [facility] Order Comment: Reason for Laboratory Test . Is Patient Fasting? N TYPE CODE TESTS RESULT OUT OF RANGE REFERENCE UNITS LAB L3200.5728 889-2408 mg/dL Normal IMMUNO G 1121 LAB L3200.1400 64-422 mg/dL Normal IMMUNO A 216 LAB L3200.1500 26-217 mg/dL Normal IMMUNOGL M 62 Performed By: #### L500.4050 #### [facility] [address] [place], [address] #### L3100.3450, L3130.0010, L3200.1200 #### [facility] (refer to report for specific site) refer to report for address and phone number VITAMIN D,25 HYDROXY Collected: 10/24/2017 Status: F Source: [place] 10:14 AM [facility] TYPE CODE TESTS RESULT OUT OF RANGE REFERENCE UNITS LAB L506.1000 29.95-100.01 ng/mL Normal Vitamin D 52.1 25-OH Result Comment: Vitamin D 25(OH) Status Range Deficiency <20 ng/mL (50nmol/L) Insuffciency 20 - 30 ng/mL (50 - 75 nmol/L) Sufficiency 30 - 100 ng/mL (75 - 250 nmol/L) Toxicity >100 ng/mL (>250 nmol/L) Performed By: #### L506.1000 #### [facility] [address] [place], [address] CBC W/DIFF, AUTOMATED Collected: 10/24/2017 Status: F Source: [place] 10:14 AM [facility] TYPE CODE TESTS RESULT OUT OF RANGE REFERENCE UNITS LAB L100.1000 4.4-11.0 K/mm3 Normal WBC 5.8 LAB L100.1200 4.2-5.4 M/mm3 Normal RBC 5.23 LAB L100.1300 12.0-15.0 g/dl High HGB 15.7 LAB L100.1400 37-47 % High HCT 47.8 LAB L100.1500 81-99 fL Normal MCV 91.4 LAB L100.1600 27.0-32.0 pg Normal MCH 30.0 LAB L100.1700 32-36 g/gl Normal MCHC 32.8 LAB L100.1810 11.6-14.6 % Normal RDW CV 13.2 LAB L100.1820 35.1-43.9 fl Normal RDW SD 43.6 LAB L100.1900 150-450 K/mm3 Normal PLT 198 LAB L100.2000 6.2-12.0 fl Normal MPV 9.6 LAB L100.2100 47-70 % Normal NEUT% 67.2 LAB L100.2200 19-41 % Normal LY% 22.7 LAB L100.2300 0-10 % Normal MONO% 8.1 LAB L100.2400 0-5 % Normal EO% 1.5 LAB L100.2500 0-1 % Normal BASO% 0.3 LAB L100.2550 0.0-0.9 % Normal IM GRAN % 0.200 Result Comment: IG% - Immature Granulocytes (promyelocytes, myelocytes and metamyelocytes) > 1% indicates that a LEFT SHIFT is Present. LAB L100.2620 2.0-7.7 X10 3/uL Normal Absolute Neut 3.9 LAB L100.2720 0.83-4.51 X10 3/ul Normal Absolute Lymph 1.32 Performed By: #### L100.0100 #### [facility] [address] [place], [address] COMPREHENSIVE METABOLIC Collected: 10/24/2017 Status: F Source: [facility] 10:14 AM [facility] TYPE CODE TESTS RESULT OUT OF RANGE REFERENCE UNITS LAB L501.0100 74-106 mg/dL Normal GLU 84 Result Comment: Please note revised GLUCOSE reference range effective 2017. LAB L501.1000 7-18 mg/dL High BUN 24 LAB L501.1100 0.55-1.02 mg/dL High CREAT,SERUM 1.25 Result Comment: The validity of the calculated GFR AND GFRAA in patients over 70 years has not been determined. Clinical correlation is essential. LAB L501.1110 >60 mL/min Low EST GFR 45 Result Comment: Non- GFR Calc LAB L501.1115 >60 mL/min Low EST GFR - AA 54 Result Comment: GFR Calc LAB L501.1300 10-20 RATIO Normal BUN/CRE 19.2 LAB L501.1500 6.4-8.2 g/dL T Normal PROT 7.8 LAB L501.1800 3.2-5.0 g/dL Normal ALB 3.6 LAB L501.1950 2.2-4.2 g/dL Normal GLOB 4.2 LAB L501.2000 0.9-2.4 RATIO Normal A/G 0.9 LAB L501.2200 8.5-10.1 mg/dL CA Normal 9.0 LAB L501.4100 15-37 U/L Normal AST 24 Result Comment: Slight Hemolysis, Result may be falsely increased. LAB L501.4305 45-117 U/L Normal ALK P 80 LAB L501.4405 13-56 U/L Normal ALT 18 LAB L501.4600 0.20-1.00 mg/dL Normal T BILI 0.40 LAB L501.5300 136-145 mmol/L Normal NA 140 LAB L501.5600 3.5-5.1 mmol/L Normal K 4.0 Result Comment: Slight Hemolysis, Result may be falsely increased. LAB L501.5900 98-107 mmol/L Normal CL 107 LAB L501.6100 21.0-32.0 mmol/L Normal CO2 26.0 LAB L501.6200 5-15 Normal 7 GAP Performed By: #### L500.4050, L501.9520 #### [facility] [address] [place], [place], [address] THYROID STIM HORMONE Collected: 10/24/2017 Status: F Source: [place] ([facility]) 10:14 AM [facility] TYPE CODE TESTS RESULT OUT OF RANGE REFERENCE UNITS LAB L501.9520 0.358-3.74 uIU/mL Normal TSH 1.65 Performed By: #### L500.4050, L501.9520 #### [facility] [address] [place], [address] SCREENING MAMM (CAD), Observed: 09/04/2017 Status: F Source: [place] [facility] 12:41 PM [facility]IT[facility] [address] [place] [address] SCREENING MAMM (CAD), BILAT MR#: [id number] Acct: [id number] Name: FRIEDA COLEMAN Rep #: [id number] : 1945 F 71 From: Amandeep Porter MD PCP: Jefferson FRAZIER,Jonathan Walton Status: REG CLI Study: SCREENING MAMM (CAD), BILAT Date of Exam: 09/04/17 Exam# [id number] Ordering Dr: Nitin Christine MD MAMMOGRAPHY - BILATERAL SCREENING REASON FOR EXAM: Female, 71 years old. Routine annual screening examination. PERTINENT HISTORY: Aunt with breast cancer. TECHNIQUE: Digital bilateral breast sunita (3D mammographic acquisition) in the CC and MLO projections. 2-D mediolateral oblique (MLO) and craniocaudad (CC) views of both breasts were obtained. CAD: Full Field Digital Mammography with Computer Added Detection was performed. COMPARISON: Comparison is made with prior study dated August 31, 2016 and August 30, 2015. FINDINGS: Breast Composition: There are scattered areas of fibroglandular density. There are no dominant masses or suspicious calcifications. No other significant abnormalities are identified. There has been no significant change since the prior study. BI/SCREENING MAMM (CAD), BILAT IMPRESSION: Stable bilateral screening mammogram. Yearly follow-up mammogram recommended. (A) ASSESSMENT CATEGORY: BIRADS Category 1: Negative. A letter regarding these results will be sent to the patient by the facility within 30 days. Approximately 10% of breast cancers are not detected by mammography. A normal mammogram should not delay biopsy of a clinically suspicious abnormality. [id number] Electronically Signed: Amandeep Porter MD at 8:18 EDT Tel [phone], Service support , CC: Nitin Christine MD; Jonathan Paulino MD Instrument Shop Supervisor: Signed ORTHOPEDIC VISIT Observed: 08/23/2017 Status: F Source: [place] RE[facility] 10:40 AM [facility] [address] [place] [address] OFFICE VISIT Date of Service: 08/13/17 MR#: [id number] Acct: [id number] Name: FRIEDA COLEMAN Rep #: [id number] : 1945 Provider: Murray Atkins DO Age/Sex: 71/F Location[place] [facility] [place] [place] Status: Signed Intake Intake Visit Reasons: LEFT SHOULDER Chief Complaint: F/u for MM. Allergies NSAIDS (Non-Steroidal Anti-Inflamma Adverse Reaction (Severe, Verified 07/16/17 14:35) Other Medications Calcium (Elemental) [Caltrate-600] 600 mg PO BIDCM 04/18/15 [History Confirmed 07/10/17] Cholecalciferol (VIT D3) [Vitamin D3] 2,000 unit PO DAILY 04/18/15 [History Confirmed 07/10/17] Magnesium 400 mg PO DAILY 04/18/15 [History Confirmed 07/10/17] Multivitamin [Daily Multiple Vitamin] 2 ea PO DAILY 08/04/16 [History Confirmed 07/10/17] Amlodipine Besylate [Norvasc] 5 mg PO DAILY 11/07/16 [History Confirmed 07/10/17] Pravastatin [Pravachol] 40 mg PO QHS 06/12/17 [History Confirmed 07/10/17] PFSH Medical History Anemia (Acute) Kidney disease (Acute) Osteoporosis (Acute) Surgical History H/O cataract (Acute) History of tonsillectomy (Acute) Family History Father Hypertension Heart disease Mother Hypertension Social History Smoking Status: Never smoker HPI LEFT SHOULDER: Details: FRIEDA COLEMAN is a 71 year old F here today for f/u after beginning an HEP for her left shoulder pain. She states she has improvement in rom and pain, there is still lateral shoulder pain in abduction only. Denies numbness, tingling or other associated symptoms. She is completing the HEP 3d/wk and goes to the gym 3d/wk, using tylenol prn. CHANTAL Pagan Reports joint pain Ortho Exam Right Shoulder Skin/Wound: Yes CDI Contralateral Normal: Yes Testing: Positive AROM-External Rotation at 90 0-60, PROM- External Rotation at side 0-60, PROM-Forward Elevation 0-180, PROM-External Rotation at 90 0-60, AROM-External Rotation at side 0-60 and AROM-Forward Elevation 0-180 Internal Rotation: Tip of Scapula Left Shoulder SHOULDER: Patient is alert oriented 3 no acute distress. Appropriate eye contact and affect. Otherwise intact from C5 to the T2 distributions. She has positive pulses. She has no extra adenopathy. Cuff strength appears to be 5 out of 5. She has improved Terrazas and Neer's maneuver with only minimal discomfort range of motion looks very good to 170 for elevation abduction external rotation about 85 internal rotation about 60 external rotation side about 70. He is able to internally rotate to about the T10 level. Assessment AND Plan Problems 1. Impingement syndrome, shoulder, left M75.42 2. Chronic left shoulder pain M25.512; G89.29 Plan Assessment: Left shoulder impingement left shoulder pain left shoulder rotator cuff strain. Doing well. Plan: The patient is has been doing the physician directed home exercise program as provided through the [facility]. Patient states that since she has been doing exercises her shoulder feels much improved does not feel we need to proceed with either injection and/or an MRI at this time. I told the patient does continue to stay the same course. As long as she is doing well with conservative care and sticks up with her shoulder program I think that she is going to continue to do well. If the patient were to have a setback to return for consideration for formal physical therapy injection and/or MRI. Patient is aware that I am leaving the practice and will need to follow-up with either my PA or my partner who is also a shoulder surgeon. Coding Level of Care Code Off vis,est,level 3 Diagnoses Impingement syndrome, shoulder, left M75.42 Chronic left shoulder pain M25.512; G89.29 Chronicity: chronic 08/23/17 1040 <Electronically signed by Murray Atkins DO> Date Murray Kamara Signature: Date (if applicable) CC: CBC-COMPLETE BLOOD CNT Collected: 08/10/2017 Status: F Source: [place] NO DIFF 8:21 AM [facility] TYPE CODE TESTS RESULT OUT OF RANGE REFERENCE UNITS LAB L100.1000 4.4-11.0 K/mm3 Normal WBC 5.8 LAB L100.1200 4.2-5.4 M/mm3 Normal RBC 4.79 LAB L100.1300 12.0-15.0 g/dl Normal HGB 15.0 LAB L100.1400 37-47 % Normal HCT 43.7 LAB L100.1500 81-99 fL Normal MCV 91.2 LAB L100.1600 27.0-32.0 pg Normal MCH 31.3 LAB L100.1700 32-36 g/gl Normal MCHC 34.3 LAB L100.1810 11.6-14.6 % Normal RDW CV 12.8 LAB L100.1820 35.1-43.9 fl Normal RDW SD 41.7 LAB L100.1900 150-450 K/mm3 Normal PLT 190 LAB L100.2000 6.2-12.0 fl Normal MPV 9.1 Performed By: #### L100.0500 #### [facility] [address] [place], [address] MICROALB:CREAT Collected: 08/10/2017 Status: F Source: [place] RATIO,RANDOM UR 8:21 AM [facility] TYPE CODE TESTS RESULT OUT OF RANGE REFERENCE UNITS LAB L501.1200 NO RANGE EST. mg/dL Normal UR CREAT 129.00 LAB L502.0500 NO RANGE EST. mg/L Normal 11.3 MICROALBUMIN ,UR LAB L502.0600 <30 mg/g CRE mg/g CRE Normal 8.8 MALB:CREAT Performed By: #### L502.0250 #### [facility] [address] [place], [address] RENAL PROFILE Collected: 08/10/2017 Status: F Source: [place] 8:21 AM [facility] TYPE CODE TESTS RESULT OUT OF RANGE REFERENCE UNITS LAB L501.0100 74-106 mg/dL Normal GLU 84 Result Comment: Please note revised GLUCOSE reference range effective 2017. LAB L501.1000 7-18 mg/dL High BUN 24 LAB L501.1100 0.55-1.02 mg/dL High CREAT,SERUM 1.08 Result Comment: The validity of the calculated GFR AND GFRAA in patients over 70 years has not been determined. Clinical correlation is essential. LAB L501.1110 >60 mL/min Low EST GFR 53 Result Comment: Non- GFR Calc LAB L501.1115 >60 mL/min Normal EST GFR - AA 64 Result Comment: GFR Calc LAB L501.1300 10-20 RATIO High BUN/CRE 22.2 LAB L501.1800 3.2-5.0 g/dL Normal ALB 3.5 LAB L501.2200 8.5-10.1 mg/dL CA Normal 8.5 LAB L501.2300 2.5-4.9 mg/dL Normal PHOS 2.6 LAB L501.5300 136-145 mmol/L NA Normal 142 LAB L501.5600 3.5-5.1 mmol/L K Normal 3.9 LAB L501.5900 98-107 mmol/L High CL 109 LAB L501.6100 21.0-32.0 mmol/L Normal CO2 26.0 Performed By: #### L500.3600, L501.5200 #### [facility] [address] [place], [address] MAGNESIUM Collected: 08/10/2017 Status: F Source: [place] 8:21 AM [facility] TYPE CODE TESTS RESULT OUT OF RANGE REFERENCE UNITS LAB L501.5200 1.6-2.6 mg/dL Normal MG 2.2 Performed By: #### L500.3600, L501.5200 #### [facility] [address] [place], [address] PTHIN Collected: 08/10/2017 Status: F Source: [place] 8:21 AM [facility] TYPE CODE TESTS RESULT OUT OF RANGE REFERENCE UNITS LAB L509.1000 18.4-80.1 pg/mL High PTHIN 109.1 Result Comment: Please Note: PTH INTACT METHOD AND REFERENCE RANGE CHANGE Effective 03/28/2017. Performed By: #### L509.1000 #### [facility] [address] [place], [address] VITAMIN D,25 HYDROXY Collected: 08/10/2017 Status: F Source: [place] 8:21 AM [facility] TYPE CODE TESTS RESULT OUT OF RANGE REFERENCE UNITS LAB L506.1000 29.95-100.01 ng/mL Normal Vitamin D 58.8 25-OH Result Comment: Vitamin D 25(OH) Status Range Deficiency <20 ng/mL (50nmol/L) Insuffciency 20 - 30 ng/mL (50 - 75 nmol/L) Sufficiency 30 - 100 ng/mL (75 - 250 nmol/L) Toxicity >100 ng/mL (>250 nmol/L) Performed By: #### L506.1000 #### [place] [facility] [address] [place], [address] ORTHOPEDIC VISIT Observed: 07/19/2017 Status: F Source: [place] REPORT 9:09 AM [facility] [address] [place] [address] [place] [address] OFFICE VISIT Date of Service: 07/16/17 MR#: [id number] Acct: [id number] Name: FRIEDA COLEMAN Osmin Rep #: [id number] : 1945 Provider: Murray Atkins DO Age/Sex: 71/F Location: [facility] [place] Status: Signed Intake Intake Visit Reasons: LEFT SHOULDER Chief Complaint: F/u for MM. Is patient in pain?: Yes Pain scale (1-10): 6 Allergies NSAIDS (Non-Steroidal Anti-Inflamma Adverse Reaction (Severe, Verified 07/16/17 14:35) Other Medications Calcium (Elemental) [Caltrate-600] 600 mg PO BIDCM 04/18/15 [History Confirmed 07/10/17] Cholecalciferol (VIT D3) [Vitamin D3] 2,000 unit PO DAILY 04/18/15 [History Confirmed 07/10/17] Magnesium 400 mg PO DAILY 04/18/15 [History Confirmed 07/10/17] Multivitamin [Daily Multiple Vitamin] 2 ea PO DAILY 08/04/16 [History Confirmed 07/10/17] Amlodipine Besylate [Norvasc] 5 mg PO DAILY 11/07/16 [History Confirmed 07/10/17] Pravastatin [Pravachol] 40 mg PO QHS 06/12/17 [History Confirmed 07/10/17] PFSH Medical History Anemia (Acute) Kidney disease (Acute) Osteoporosis (Acute) Surgical History H/O cataract (Acute) History of tonsillectomy (Acute) Family History Father Hypertension Heart disease Mother Hypertension Social History Smoking Status: Never smoker HPI LEFT SHOULDER: Details: FRIEDA COLEMAN is a 71 year old F here today for left shoulder pain. Patient states that she has had left shoulder pain for about a year. She has pain over her lateral and superior shoulder. Patient has decreased range of motion and weakness. Patient denies any formal physcial therapy. Patient had an injection by Dr Paulino last year which was not helpful. She has seen a massage therapist and had no relief. She had an xray which are here for review. ROS Const Reports system reviewed and no additional complaints, except as docu Eyes Reports system reviewed and no additional complaints, except as docu ENT Reports system reviewed and no additional complaints, except as docu Card Reports system reviewed and no additional complaints, except as docu Resp Reports system reviewed and no additional complaints, except as docu GI Reports system reviewed and no additional complaints, except as docu Reports system reviewed and no additional complaints, except as docu Musc Reports joint pain, Reports muscle weakness, Reports limited joint movement, Reports stiffness Skin/Breast Reports system reviewed and no additional complaints, except as docu Neuro Yes system reviewed and no additional complaints, except as docu Psych Reports system reviewed and no additional complaints, except as docu Endo Reports system reviewed and no additional complaints, except as docu Ortho Exam Right Shoulder Skin/Wound: Yes CDI Contralateral Normal: Yes Testing: Positive AROM-External Rotation at 90 0-60, PROM- External Rotation at side 0-60, PROM-Forward Elevation 0-180, PROM-External Rotation at 90 0-60, AROM-External Rotation at side 0-60 and AROM-Forward Elevation 0-180 Internal Rotation: Tip of Scapula Left Shoulder Contralateral Normal: Yes Testing: Yes Hawkin's, Yes Neer's, Yes TTP Biceps, Yes Drop Arm, Yes empty can Internal Rotation: L1 SHOULDER: Alert and oriented 3 no acute distress. Appropriate eye contact and affect. Otherwise intact from the C5 to the T2 distributions. She has +2 pulses. She has no adenopathy. Patient has passive full range of motion to the shoulder. However she has pain at 100 of forward elevation. Consistent with positive Terrazas and Neer's maneuver. She has a painful crank and SLAP maneuver. She has weakness with supraspinatus testing at 4/5. She has pain with resisted external rotation at the side in the abducted position as well. Overall strength appears to be 4+/5. X-rays: Evaluated myself patient-no obvious bony abnormalities could be appreciated. Patient has a history of multiple myeloma but I do not appreciate any lytic or blastic lesions. Assessment AND Plan Problems 1. Impingement syndrome, shoulder, left M75.42 2. Chronic left shoulder pain M25.512; G89.29 3. Strain of muscle(s) and tendon(s) of the rotator cuff of left shoulder, initial encounter S46.012A Plan Assessment: Left shoulder impingement left shoulder pain and left shoulder probable rotator cuff tear. Plan: At this point time an extensive discussion with the patient about operative versus nonoperative management to include consideration for another injection. Patient had an injection in the past did not feel that he did well. I recommendation at this point time is to do an MRI of the shoulder if the patient would like to determine whether or not there is truly rotator cuff tear and whether or not there is operative intervention warranted for the shoulder. The patient however has not done a formal physical therapy program so I am going to provide her with the [facility] shoulder program and have her perform his exercises 2-3 times per week for the next 4-6 weeks and then follow-up with me. The patient remains symptomatic I will consider doing an MRI at that time to evaluate for rotator cuff pathology. Any major issues please contact me. Coding Level of Care Code Off vis,new,level 3 Diagnoses Impingement syndrome, shoulder, left M75.42 Chronic left shoulder pain M25.512; G89.29 Chronicity: chronic Strain of muscle(s) and tendon(s) of the rotator cuff of left shoulder, initial encounter S46.012A 07/19/17 0909 <Electronically signed by Murray Atkins DO> Date Murray Atkins DO Cosigner Signature: Date (if applicable) CC: ONCOLOGY VISIT REPORT Observed: 07/10/2017 Status: F Source: [place] 2:20 PM [facility] [address] [place], [place] [address] [address] OFFICE VISIT Date of Service: 07/10/17 1408 MR#: [id number] Acct: [id number] Name: FRIEDA COLEMAN Rep #: [id number] : 1945 From: Nitin Christine MD Age/Sex: 71/F Location: [facility] Status: Signed Subjective - Date of Service Date of Service:: 07/10/17 - Chief Complaint F/u for X-ray results. - History of Present Illness Ms. Frieda Coleman is very pleasant 71y.o.woman was diagnosed with Multiple Myeloma IgG type on 08/03/2010 associated with hypercalcemia, renal failure and lytic lesions. She was treated with Velcade, Decadron from 08/2010 to 02/2011 followed by 4 cycles of RVD from 03/2011 to 06/2011. She also received Zometa which was discontinued because of renal dysfunction. She had complete response with no m-spike on SPEP so started maintenance Revlimid on 06/27/2011 and was discontinued on 05/15/2016. She is on observation. She had pain in the Left shoulder and occasionally in the Right shoulder, X-rays were requested and comes for follow up. - Past Medical/Social History Past Medical History Past Medical History: Anemia,Hypertension,Kidney disease,Osteoporosis Cancer: Multiple myeloma Past Surgical History Surgical: Colonoscopy,Tonsillectomy Family History Paternal Past Medical History: Heart disease,Hypertension Maternal Past Medical History: Hypertension Social History Smoking Status Never smoker Review of Systems Constitutional:: Reports: Pain - still has pain in the L shoulder with movement.. Denies: Fever, Sweats, Weight loss, Appetite change, Chills Vital Signs Height 5 ft 3 in Weight: 67.585 kg Weight in Pounds 149.0 lbs Pulse Ox 100 - Physical Exam General: Alert, Oriented x3, No apparent distress Diagnostic Data: 06/12/2017 X-rays of Right and Left shoulders reviewed, Left shoulder shows mild insertional infraspinatus calcific tendinosis, Right shoulder normal. Assessment and Plan Multiple Myeloma with complete remission. No M-spike. Calcific Tendinosis of Left shoulder associated with pain. Discussed management of tendon calcification. She agrees to Ortho/Chiropractor/PT consults. Plan is to continue observation for Multiple Myeloma. Obtain Ortho/Chiropractor/PT consults. RTC 5 months with CBC/CMP/SPEP/SLC/IG Levels. Medications: Prescriptions This Visit Medication Instructions Recorded Primary Care Provider: Jonathan Paulino Referring Provider: Jose Martin Saucedo - Problem List (1) Multiple myeloma in remission Status: Chronic (2) Shoulder pain, bilateral Status: Chronic Qualifiers: Chronicity: chronic Qualified Code(s): M25.511 - Pain in right shoulder; M25.512 - Pain in left shoulder; G89.29 - Other chronic pain Code Visit Office Visits / Consults: [id number] OV L3 Est 07/10/17 1420 <Electronically signed by Nitin Christine MD> Date Nitin Christine MD Cosigner Signature: Date (if applicable) CC: ONCOLOGY VISIT REPORT Observed: 06/12/2017 Status: F Source: [place] 4:51 PM [facility] [address] [place] [address] OFFICE VISIT Date of Service: 06/12/17 1412 MR#: [id number] Acct: [id number] Name: FRIEDA COLEMAN Rep #: [id number] : 1945 From: Nitin Christine MD Age/Sex: 71/F Location: OMD Status: Signed Subjective - Date of Service Date of Service:: 06/12/17 - Chief Complaint F/u for MM. - History of Present Illness Ms. Frieda Coleman is very pleasant 71y.o.woman was diagnosed with Multiple Myeloma IgG type on 08/03/2010 associated with hypercalcemia, renal failure and lytic lesions. She was treated with Velcade, Decadron from 08/2010 to 02/2011 followed by 4 cycles of RVD from 03/2011 to 06/2011. She also received Zometa which was discontinued because of renal dysfunction. She had complete response with no m-spike on SPEP so started maintenance Revlimid on 06/27/2011 and was discontinued on 05/15/2016. She is on observation. Comes in for follow up. She feels well, has pain in the Left shoulder and occasionally in the Right shoulder. - Past Medical/Social History Past Medical History Past Medical History: Anemia,Hypertension,Kidney disease,Osteoporosis Cancer: Multiple myeloma Past Surgical History Surgical: Colonoscopy,Tonsillectomy Family History Paternal Past Medical History: Heart disease,Hypertension Maternal Past Medical History: Hypertension Social History Smoking Status Never smoker Review of Systems Constitutional:: Denies: Fever, Sweats, Weight loss, Appetite change, Chills Cardiovascular:: Denies: Chest pain, Palpitations, Dyspnea on exertion, Orthopnea, PND, Shortness of breath Respiratory: Denies: Cough, Hemoptysis, Shortness of Breath, Wheezing Gastrointestinal:: Denies: Abdominal pain, Nausea, Vomiting, Diarrhea, Constipation, Hematochezia Genitourinary: Denies: Dysuria, Hematuria, 15, Flank pain Musculoskeletal:: Reports: Arthralgia - R AND L shoulders.. Denies: Back pain, Myalgia Skin: Denies: Rash, Skin Changes, Wounds Neurological:: Denies: Headache, Dizziness, Visual changes, Tinnitus, Hearing loss Psychiatric: Denies: Anxiety, Depression, Homicidal Ideations, Suicidal Ideations Vital Signs Height 5 ft 3 in Weight: 67.132 kg Weight in Pounds 148.0 lbs Pulse Ox 99 - Physical Exam General: Alert, Oriented x3, No apparent distress HEENT: Atraumatic, PERRLA, EOMI, Normocephalic Oropharynx:: Dry mucosa Neck:: Supple, Trachea midline. Negative for: JVD, bilateral Cardiac:: Regular rate, Regular rhythm, Normal S1, Normal S2. Negative for: Murmur Lungs: Clear to auscultation, Excusion symmetrical. Negative for: Rhonchi, Wheezes Abdomen:: Bowel sounds x 4, Soft, Non-tender, Non-distended. Negative for: Hepatosplenomegaly Extremities:: - - + Limited ROM Left shoulder.. Negative for: Cyanosis, Edema Neurological: Neuro grossly intact Skin:: Negative for: Lesions, Rash, Petechiae, Ecchymosis Psychiatric:: Appropriate affect, Euthymic Lymphatics:: Negative for: Cervical lymphadenopathy, Supraclavicular lymphadenopathy, Axillary lymphadenopathy Laboratory Data: 06/06/2017 reviewed, no M-spike. Assessment and Plan Multiple Myeloma with complete remission. No M-spike. Right and Left shoulder pain. Plan is to continue observation. Obtain x-ray R AND L shoulders. RTC 1 month. Medications: Prescriptions This Visit Medication Instructions Recorded Primary Care Provider: Jonathan Paulino Referring Provider: Jose Martin Saucedo - Problem List (1) Multiple myeloma in remission Status: Chronic (2) Shoulder pain, bilateral Status: Chronic Qualifiers: Chronicity: chronic Qualified Code(s): M25.511 - Pain in right shoulder; M25.512 - Pain in left shoulder; G89.29 - Other chronic pain Code Visit Office Visits / Consults: [id number] OV L4 Est 06/12/17 1651 <Electronically signed by Nitin Christine MD> Date Nitin Christine MD Cosigner Signature: Date (if applicable) CC: SHOULDER MIN 2 VIEWS Observed: 06/12/2017 Status: F Source: [place] 3:25 PM [facility] REPOSITORY [facility] Imaging Services [address] [place] [address] Shoulder min 2 Views MR#: [id number] Acct: [id number] Name: FRIEDA COLEMAN Rep #: [id number] : 1945 F 71 From: Derek Reyes MD PCP: Jonathan Paulino MD, Chi Status: REG CLI Study: Shoulder min 2 Views Date of Exam: 06/12/17 Exam# [id number] Ordering Dr: Nitin Christine MD STUDY: X-RAY - LEFT SHOULDER REASON FOR EXAM: Female, 71 years old. Pain TECHNIQUE: 4 view(s) of the shoulder. COMPARISON: None. FINDINGS: There is small calcification at the infraspinatus tendon insertion. Normal glenohumeral articulation. Normal acromioclavicular joint. Normal acromion. Normal humeral head and visualized proximal humerus. Normal visualized pulmonary apex. RAD/Shoulder min 2 Views IMPRESSION: Suggestion of mild insertional infraspinatus calcific tendinosis Electronically Signed: Derek Reyes MD at 22:25 EST Tel , Service support , CC: Nitin Christine MD; Jonathan Paulino MD Instrument Shop Supervisor: Signed SHOULDER MIN 2 VIEWS Observed: 06/12/2017 Status: F Source: [place] 3:14 PM [facility]OSP[facility] REPOSITORY [facility] Imaging Services [address] [place] [address] Shoulder min 2 Views MR#: [id number] Acct: [id number] Name: FRIEDA COLEMAN Rep #: [id number] : 1945 F 71 From: Derek Reyes MD PCP: Jonathan Paulino MD, Chi Status: REG CLI Study: Shoulder min 2 Views Date of Exam: 06/12/17 Exam# [id number] Ordering Dr: Nitin Christine MD STUDY: X-RAY - RIGHT SHOULDER REASON FOR EXAM: Female, 71 years old. Pain TECHNIQUE: 4 view(s) of the shoulder. COMPARISON: None. FINDINGS: Normal glenohumeral articulation. Normal acromioclavicular joint. Normal acromion. Normal humeral head and visualized proximal humerus. The soft tissue structures are unremarkable. Normal visualized pulmonary apex. RAD/Shoulder min 2 Views IMPRESSION: Normal x-ray examination of the shoulder. Electronically Signed: Derek Reyes MD at 22:26 EST Tel , Service support , CC: Nitin Christine MD; Jonathan Paulino MD Instrument Shop Supervisor: Signed CBC W/DIFF, AUTOMATED Collected: 06/06/2017 Status: F Source: [place] 8:38 AM [facility] Order Comment: Reason for Laboratory Test OV TYPE CODE TESTS RESULT OUT OF RANGE REFERENCE UNITS LAB L100.1000 4.4-11.0 K/mm3 Normal WBC 5.2 LAB L100.1200 4.2-5.4 M/mm3 Normal RBC 4.99 LAB L100.1300 12.0-15.0 g/dl High HGB 15.6 LAB L100.1400 37-47 % Normal HCT 46.1 LAB L100.1500 81-99 fL Normal MCV 92.4 LAB L100.1600 27.0-32.0 pg Normal MCH 31.3 LAB L100.1700 32-36 g/gl Normal MCHC 33.8 LAB L100.1810 11.6-14.6 % Normal RDW CV 13.1 LAB L100.1820 35.1-43.9 fl Normal RDW SD 43.4 LAB L100.1900 150-450 K/mm3 Normal PLT 186 LAB L100.2000 6.2-12.0 fl Normal MPV 9.2 LAB L100.2100 47-70 % Normal NEUT% 66.2 LAB L100.2200 19-41 % Normal LY% 23.7 LAB L100.2300 0-10 % Normal MONO% 7.6 LAB L100.2400 0-5 % Normal EO% 2.1 LAB L100.2500 0-1 % Normal BASO% 0.4 LAB L100.2550 0.0-0.9 % Normal IM GRAN % 0.000 Result Comment: IG% - Immature Granulocytes (promyelocytes, myelocytes and metamyelocytes) > 1% indicates that a LEFT SHIFT is Present. LAB L100.2620 2.0-7.7 X10 3/uL Normal Absolute Neut 3.5 LAB L100.2720 0.83-4.51 X10 3/ul Normal Absolute Lymph 1.24 Performed By: #### L100.0100 #### [facility] [address] [place], [place], [address] COMPREHENSIVE METABOLIC Collected: 06/06/2017 Status: F Source: [place] RUSSE[place] 8:38 AM [facility] Order Comment: Reason for Laboratory Test OV TYPE CODE TESTS RESULT OUT OF RANGE REFERENCE UNITS LAB L501.0100 74-106 mg/dL Normal GLU 95 Result Comment: Please note revised GLUCOSE reference range effective 2017. LAB L501.1000 7-18 mg/dL High BUN 23 LAB L501.1100 0.55-1.02 mg/dL High CREAT,SERUM 1.20 Result Comment: The validity of the calculated GFR AND GFRAA in patients over 70 years has not been determined. Clinical correlation is essential. LAB L501.1110 >60 mL/min Low EST GFR 47 Result Comment: Non- GFR Calc LAB L501.1115 >60 mL/min Low EST GFR - AA 57 Result Comment: GFR Calc LAB L501.1255 ml/min Normal Estimated CRCL 34.54 LAB L501.1300 10-20 RATIO Normal BUN/CRE 19.2 LAB L501.1500 6.4-8. g/dL Normal 2 T PROT 7.4 LAB L501.1800 3.2-5. g/dL Normal 0 ALB 3.5 LAB L501.1950 2.2-4. g/dL Normal 2 GLOB 3.9 LAB L501.2000 0.9-2. RATIO Normal 4 A/G 0.9 LAB L501.2200 8.5-10 mg/dL Normal .1 CA 8.9 LAB L501.4100 15-37 U/L Normal AST 24 LAB L501.4305 45-117 U/L Normal ALK P 84 LAB L501.4405 13-56 U/L Normal ALT 16 Result Comment: Please note revised ALT reference range effective 2017. LAB L501.4600 0.20-1.00 mg/dL Normal T BILI 0.60 LAB L501.5300 136-145 mmol/L Normal NA 143 LAB L501.5600 3.5-5.1 mmol/L Normal K 3.9 LAB L501.5900 98-107 mmol/L High CL 108 LAB L501.6100 21.0-32.0 mmol/L Normal CO2 27.0 LAB L501.6200 5-15 Normal GAP 8 Performed By: #### L500.4050 #### [facility] [address] [place], [address] #### L3100.3450, L3130.0010, L3200.1200 #### [facility] (refer to report for specific site) refer to report for address and phone number PROTEIN ELECTROPH, S Collected: 06/06/2017 Status: F Source: [place] 8:38 AM [facility] Order Comment: Reason for Laboratory Test OV Is Patient Fasting? Y TYPE CODE TESTS RESULT OUT OF RANGE REFERENCE UNITS LAB L3100.3500 6.0-8.5 g/dL Normal PROTEIN,TOTAL 6.9 LAB L3100.3600 2.9-4.4 g/dL Normal ALBUMIN 3.9 LAB L3100.3700 0.0-0.4 g/dL Normal ALPHA-1 GLOBUL 0.2 LAB L3100.3800 0.4-1.0 g/dL Normal ALPHA-2 GLOBUL 0.8 LAB L3100.3900 0.7-1.3 g/dL Normal BETA GLOBULIN 1.0 LAB L3100.4000 0.4-1.8 g/dL Normal GAMMA GLOBULIN 1.0 LAB L3100.4110 Normal M-SPIKE Result Comment: Not Observed LAB L3100.4200 2.2-3.9 g/dL GLOBULIN, TOTAL Normal 3.0 LAB L3100.4300 0.7-1.7 A/G RATIO Normal 1.3 LAB L3100.4320 . INTERPRETATION Normal Comment Result Comment: Protein electrophoresis scan will follow via computer, mail, or quarter section ironer delivery. LAB L3100.4340 . Normal NOTE: Comment Result Comment: The SPE pattern appears essentially unremarkable. Evidence of monoclonal protein is not apparent. Performed By: #### L500.4050 #### [facility] [address] [facility] [place], [place], [address] #### L3100.3450, L3130.0010, L3200.1200 #### [facility] (refer to report for specific site) refer to report for address and phone number KAPPA LAMBDA LIGHT Collected: 06/06/2017 Status: F Source: [facility] 8:38 AM [facility] Order Comment: Reason for Laboratory Test OV Is Patient Fasting? Y TYPE CODE TESTS RESULT OUT OF RANGE REFERENCE UNITS LAB L3130.0200 3.3-19.4 mg/L Normal FR KAPPA LT 18.0 CHN LAB L3130.0300 5.7-26.3 mg/L Normal FR LAMBDA LT 19.0 CH LAB L3130.0400 0.26-1.65 Normal KAPPA/LAMBDA 0.95 % Result Comment: Performed at: [facility] [id number] Arbitrator: Stephen Cruz PhD, Phone: [phone] Performed By: #### L500.4050 #### [facility] [address] [facility] [address] [facility] [place], [place], [address] #### L3100.3450, L3130.0010, L3200.1200 #### [facility] (refer to report for specific site) refer to report for address and phone number IMMUNOGLOBULINS G/A/M Collected: 06/06/2017 Status: F Source: [place] 8:38 AM [facility] Order Comment: Reason for Laboratory Test OV Is Patient Fasting? Y TYPE CODE TESTS RESULT OUT OF RANGE REFERENCE UNITS LAB L3200.6819 680-7076 mg/dL Normal IMMUNO G 955 LAB L3200.1400 64-422 mg/dL Normal IMMUNO A 189 LAB L3200.1500 26-217 mg/dL Normal IMMUNOGL M 73 Performed By: #### L500.4050 #### [facility] [address] [place], [address] #### L3100.3450, L3130.0010, L3200.1200 #### [facility] (refer to report for specific site) refer to report for address and phone number ALLERGIES ALLERGIES DATE TYPE / CODE NAME / CODE REACTION SEVERITY SOURCE 11/06/2017 Drug NSAIDS Other [facility] Allergy/4160 ([facility] 75398(SNOMED Anti-Inflamma/ Repository CT) [id number](RXN ORM) ENCOUNTERS ENCOUNTERS ADMIT/DISCHARGE ACCOUNT ADMITTING ENCOUNTER LOCATION SOURCE NUMBER CLASS 04/30/2018 [id number] Ambulatory [place] 6 [facility] ing:ONC Repository 04/25/2018 [id number] [place] 0 [facility] ing:POLAB3 Repository 02/08/2018 [id number] Ambulatory [place] 1 [facility] ing:LAB Repository 11/06/2017 [id number] Ambulatory B[place]Building:B [place] 8 [place] Repository 10/24/2017 [id number] [facility]ulatory [facility] ing:POLAB3 Repository 09/04/2017 [id number] Ambulatory [place] 8 [facility] ing:OPBI Repository 08/13/2017/ [id number] Ambulatory BMSBuilding:B [place] 8 8 [place].[facility] Repository 08/10/2017 [id number] Ambulatory [place] 0 [facility] ing:LAB Repository 07/16/2017/ [id number] Ambulatory BMSBuilding:B [place] 8 0 [place].[facility] Repository 07/10/2017 [id number] Ambulatory BMSBuilding:B [place] 1 [place] Repository 06/12/2017 [id number] Ambulatory [place] 1 [facility] ing:RAD Repository 06/12/2017 [id number] Ambulatory BMSBuilding:B [place] 5 [place].[facility] [place] PAYERS PAYERS ENCOUNTER GUARANTOR PAYER SUBSCRIBER SOURCE 04/30/2018 FRIEDA A Primary FRIEDA A [place] [id number] Insurance:MEDICARE BECKERDOB: Community GASCHE PART A [facility] [id number] Number: Repository [id number]: [phone] [id number] [phone] () Date:2008-10-07 04/30/2018 Secondary FRIEDA A [place] Insurance:STATE BECKERDOB: [facility] Number: [id number] Valley [id number] Repository Date:8559-28-77Kl [address] [place] [address]IH: 04/30/2018 Tertiary NOT GIVENUNK [place] Insurance:SELF PAY [facility] Number: Effective Repository Date:2016-06-28 04/25/2018 FRIEDA A Primary FRIEDA [place] [id number] Insurance:MEDICARE BECKERDOB: Community GASCHE PART A [facility] [id number] Number: Repository [id number]: 330 [id number] [phone] () Date:2018-04-25 04/25/2018 Secondary FRIEDA A [place] Insurance:STATE BECKERDOB: [facility] Number: [id number] Hospital [id number] Repository Date:3111-26-30Xd [address] [place] [address]CW: 04/25/2018 Tertiary NOT GIVENUNK [place] Insurance:SELF PAY [facility] Number: Effective Repository Date:2018-04-25 02/08/2018 FRIEDA A Primary FRIEDA A [place] [id number] Insurance:MEDICARE BECKERDOB: Community GASCHE PART A [facility] [id number] Number: Repository [id number]: 330 [id number] [phone] () Date:2018-02-08 02/08/2018 Secondary FRIEDA A [place] Insurance:STATE BECKERDOB: [facility] FARMPolic Number: [id number] Valley [id number] Repository Date:1677-31-48Ij [facility] [place] [address]SB: 02/08/2018 Tertiary NOT GIVENUNK [place] Insurance:SELF PAY [facility] Number: Effective Repository Date:2018-02-08 11/06/2017 RFIEDA A Primary FRIEDA A [place] [id number] Insurance:MEDICARE BECKERDOB: Community GASCHE PART A [facility] [id number], [place] Number: Repository [address]Bhv: [phone] [id number] [phone] () Date:2008-10-07 11/06/2017 Secondary FRIEDA A [place] Insurance:[facility]: [facility] Number: [id number] Hospital [id number] Repository Date:4051-85-89Vn [address] [place] [address]ZL: 11/06/2017 Tertiary NOT GIVENUNK [place] Insurance:SELF PAY [facility] Number: Effective Repository Date:2017-11-06 10/24/2017 FRIEDA A Primary FRIEDA A [place] [id number] Insurance:MEDICARE BECKERDOB: Community GASCHE PART A [facility] [id number] Number: Repository [id number]: [phone] [id number] [phone] () Date:2017-10-24 10/24/2017 Secondary FRIEDA A [place] Insurance:[facility]ONA[facility]B: [facility] Number: [id number] Hospital [id number] Repository Date:9600-70-02Kv [address] [place], [place] [address], [place] [address]JR: 10/24/2017 Tertiary NOT GIVENUNK [place] Insurance:SELF PAY [facility] Hospital Number: Effective Repository Date:2017-10-24 09/04/2017 FRIEDA A Primary FRIEDA A [place] [id number] Insurance:MEDICARE BECKERDOB: Community GASCHE PART A [facility] [id number] Number: Repository [id number]: 330 [id number] [phone] () Date:2017-08-07 09/04/2017 Secondary FRIEDA A [place] Insurance:STATE BECKERDOB: [facility]MAbra[facility] Campusic Number: [id number] Valley [id number] Repository Date:8514-98-39Dg [address] [place] [address]IZ: 09/04/2017 Tertiary NOT GIVENUNK [place] Insurance:SELF PAY [facility] Number: Effective Repository Date:2017-08-07 08/13/2017 FRIEDA A Primary FRIEDA A [place] [id number] Insurance:MEDICARE BECKERDOB: Community GASCHE PART A [facility] [id number] [place] Number: Repository [id number]: 330 [id number] [phone] () Date:2017-07-16 08/13/2017 Secondary FRIEDA A [place] Insurance:STATE BECKERDOB: [facility] Number: [id number] Valley [id number] Repository Date:5627-37-19Rh [address] [place] [address]FF: 08/13/2017 Tertiary NOT GIVENUNK [place] Insurance:SELF PAY [facility] Hospital Number: Effective Repository Date:2017-08-13 08/10/2017 FRIEDA A Primary FRIEDA A [place] [id number] Insurance:MEDICARE BECKERDOB: Community GASCHE PART A [facility] [id number] Number: Repository [address]Pds: 330 [id number] [phone] () Date:2017-08-10 08/10/2017 Secondary FRIEDA A [place] Insurance:STATE BECKERDOB: [facility] Number: [id number] Hospital [id number] Repository Date:9253-52-85En [address] [place] [address]TB: 08/10/2017 Tertiary NOT GIVENUNK [place] Insurance:SELF PAY [facility] Hospital Number: Effective Repository Date:2017-08-10 07/16/2017 FRIEDA A Primary FRIEDA A [place] [id number] Insurance:MEDICARE BECKERDOB: Community GASCHE PART A [facility] [id number], [place] Number: Repository [address]Whv: 330 [id number] [phone] () Date:2017-07-10 07/16/2017 Secondary FRIEDA A [place] Insurance:STATE BECKERDOB: [facility]ARMSt[facility] Number: [id number] Valley [id number] Repository Date:3856-18-37[address] [address]NC: 07/16/2017 Tertiary NOT GIVENUNK [place] Insurance:SELF PAY [facility] Number: Effective Repository Date:2017-07-10 07/10/2017 Frieda A Primary Frieda A [place] [id number] Insurance:MEDICARE BeckerDOB: Community Gasche PART A [facility] [id number] Number: Repository [address]Don: 330 [id number] [phone] () Date:2008-10-07 07/10/2017 Secondary Frieda A [place] Insurance:STATE BeckerDOB: [facility] FARMPolicy Number: [id number] Hospital [id number] Repository Date:4672-01-24Qq [address] [place] [address]ZR: 07/10/2017 Tertiary NOT GIVENUNK [place] Insurance:SELF PAY [facility] Number: Effective Repository Date:2017-07-10 06/12/2017 Frieda A Primary Frieda A [place] [id number] Insurance:MEDICARE BeckerDOB: Community Gasche PART A [facility] [id number], [place] Number: Repository [id number]: 330 [id number] [phone] () Date:2017-06-12 06/12/2017 Secondary Frieda A [place] Insurance:STATE Page HospitalerD[facility]: [facility] FARMPolicy Number: [id number] Hospital [id number] Repository Date:8626-30-40Ba [address] [place] [address]WD: 06/12/2017 Tertiary NOT GIVENUNK [place] Insurance:SELF PAY [facility] Number: Effective Repository Date:2017-06-12 06/12/2017 Friead A Primary Frieda A [place] [id number] Insurance:MEDICARE BeckerDOB: [facility] Gasche PART A [facility] [id number], [place] Number: Repository [address]Fii: [phone] [id number] [phone] () Date:2008-10-07 06/12/2017 Secondary Frieda A [place] [facility] Number: [id number] Hospital [id number] Repository Date:0190-80-44Qd [address] [place] [address]OK: 06/12/2017 Tertiary NOT GIVENUNK [place] Insurance:SELF PAY [facility] Number: Effective Repository Date:2017-06-12
== END ==
PROVIDERS: Family Provider Family Medicine Geriatric Medicine; PCP Family Medicine Geriatric Medicine; Visit Provider Family Medicine Geriatric Medicine
DX: I10 Essential (primary) hypertension (principal); E55.9 Vitamin D deficiency, unspecified; M10.9 Gout, unspecified
CPT/HCPCS: 36415; 80053; 82306; 84443; 84550; 85025

== ENCOUNTER → 2018-08-05 09:16 | Outpatient (CLI) | payer MEDICARE, OTHER, SELFPAY ==
[2018-05-07 13:52] VITALS: BMI 26.4
[2018-08-05 12:12] LABS: Color, Urine Yellow (Yellow); Glucose, Dipstick Normal (Normal); Ketone-Dipstick Negative (Negative); Leukocyte Esterase-Dipstick 100 /ul (Negative); Nitrite-Dipstick Negative (Negative); Occult Blood-Urine 10 /ul (Negative); Protein-Dipstick Negative (Negative); Specific Gravity, Urine 1.015 (1.002-1.030); Urine Bilirubin Dipstick Negative (Negative); Urine Clarity Clear (Clear); Urine Urobilinogen Normal (Normal)
[2018-08-05 12:17] LABS: Absolute Lymphocyte Count 1.23 X10^3/ul (0.83-4.51); Absolute Neutrophil Count 3.6 X10^3/uL (2.0-7.7); Basophil# 0.02 X10^3/uL; Basophil% 0.4 % (0-1); Eosinophils% 1.9 % (0-5); Hematocrit 48.7 % (37-47); Hemoglobin 16.2 g/dl (12.0-15.0); Lymphocyte # 1.23 X10^3/ul (4.0); Lymphocyte % 23.1 % (19-41); Mean Corp Hgb Conc 33.3 g/gl (32-36); Mean Corpuscular Volume 90.2 fL (81-99); Mean Platelet Vol. 9.4 fl (6.2-12.0); Monocyte# 0.33 X10^3/uL; Monocyte% 6.2 % (0-10); Neutrophil # 3.64 X10^3/uL (2.7-7.7); Neutrophil % 68.2 % (47-70); Platelet Count 234 K/mm3 (150-450); RBC Distribution Width CV 13.5 % (11.6-14.6); RBC Distribution Width SD 44.3 fl (35.1-43.9); White Blood Count 5.3 K/mm3 (4.4-11.0)
[2018-08-05 12:23] LABS: POSITIVE COUNT NO; POSITIVE DIFFERENTIAL NO; POSITIVE MORPHOLOGY NO
[2018-08-05 12:45] LABS: Microalbumin,Random Urine 19.3 mg/L (NO RANGE EST.); Protein, Urine (Random) 9.2 mg/dL (<11.9); Protein:Creat Ratio 69 mg/g CRE (0-200); Vitamin D,25 Hydroxy 49.2 ng/mL (29.95-100.01)
[2018-08-05 12:55] LABS: Albumin, Serum 3.8 g/dL (3.2-5.0); BUN 21 mg/dL (7-18); BUN/Creat Ratio 18.9 RATIO (10-20); Calcium,Total 9.1 mg/dL (8.5-10.1); Chloride 108 mmol/L (98-107); Cholesterol 171 mg/dL (200); Creatinine, Serum 1.11 mg/dL (0.55-1.02); EST Glomerular Filtration Rate 51 mL/min (>60); Est Glom Filt Rate - Afr Amer 62 mL/min (>60); Glucose 93 mg/dL (74-106); High Density Lipoprotein 71 mg/dL; Magnesium 2.2 mg/dL (1.6-2.6); Phosphorus 2.3 mg/dL (2.5-4.9); Potassium 3.9 mmol/L (3.5-5.1); Sodium Level 141 mmol/L (136-145); Triglycerides 211 mg/dL; Very Low Density Lipoprotein 42 mg/dL (5-40)
== END ==
PROVIDERS: PCP Internal Medicine Nephrology; Visit Provider Family Medicine
DX: C90.00 Multiple myeloma not having achieved remission (principal); E78.5 Hyperlipidemia, unspecified; E55.9 Vitamin D deficiency, unspecified; N18.3 Chronic kidney disease, stage 3 (moderate); D63.1 Anemia in chronic kidney disease; I12.9 Hypertensive chronic kidney disease with stage 1 through stage 4 chronic kidney disease, or unspecified chronic kidney disease
CPT/HCPCS: 36415; 80061; 80069; 81002; 82043; 82306; 82570; 83735; 83970; 84156; 85025

== ENCOUNTER → 2018-09-30 08:29 | Outpatient (CLI) | payer MEDICARE, OTHER, SELFPAY ==
[2018-05-07 13:52] VITALS: BMI 26.4
--- NOTE | 2018-09-30 08:31 | BI_ITS ---
MAMMOGRAPHY - BILATERAL SCREENING 3-D TOMOSYNTHESIS REASON FOR EXAM: Female, 72 years old. Bilateral Screening 3-D tomosynthesis PERTINENT HISTORY: History of breast cancer in aunt. TECHNIQUE: 2-D mammograms and 3-D Tomosynthesis of the breast (s) were performed. CAD was performed. COMPARISON: September 04, 2017, August 31, 2016 FINDINGS: The breast composition is almost entirely fat. Scattered benign calcifications are seen. Stable lymph nodes. No dense spiculated masses or suspicious microcalcifications are identified. No architectural distortion is identified. There is no skin thickening or retraction. There has been no significant change since the prior study. BI/SCREEN MAMM (CAD) W/WAQAS BILAT IMPRESSION: No mammographic signs of malignancy. Routine yearly mammograms recommended. ASSESSMENT CATEGORY: BIRADS Category 2: Benign. A letter regarding these results will be sent to the patient by the facility within 30 days. FOLLOW UP RECOMMENDATION: Yearly follow up mammogram recommended. (A) Approximately 10% of breast cancers are not detected by mammography. A normal mammogram should not delay biopsy of a clinically suspicious abnormality. Electronically Signed: Giovanny Banda MD at 16:23 EDT , Service support ,
== END ==
PROVIDERS: Family Provider Family Medicine; PCP Family Medicine; Referring Provider Family Medicine; Visit Provider Family Medicine
DX: Z12.31 Encounter for screening mammogram for malignant neoplasm of breast (principal)
CPT/HCPCS: 77063; 77067

== ENCOUNTER → 2019-02-11 08:45 | Outpatient (CLI) | payer MEDICARE, OTHER, SELFPAY ==
[2018-11-05 13:09] VITALS: BMI 26.2
[2019-02-11 10:09] LABS: Color, Urine Straw (Yellow); Glucose, Dipstick Normal (Normal); Ketone-Dipstick Negative (Negative); Leukocyte Esterase-Dipstick 100 /ul (Negative); Nitrite-Dipstick Negative (Negative); Occult Blood-Urine Negative /ul (Negative); Protein-Dipstick Negative (Negative); Urine Bilirubin Dipstick Negative (Negative); Urine Clarity Clear (Clear); Urine Urobilinogen Normal (Normal); Urine pH 6.5 (5.0 - 8.0)
[2019-02-11 10:13] LABS: Hematocrit 46.5 % (37-47); Hemoglobin 15.4 g/dL (12.0-15.0); Mean Corp Hgb Conc 33.1 g/dL (32-36); Mean Corpuscular Hgb 30.6 pg (27.0-32.0); Mean Corpuscular Volume 92.3 fL (81-99); Mean Platelet Vol. 9.2 fl (6.2-12.0); Platelet Count 208 K/mm3 (150-450); RBC Distribution Width CV 12.4 % (11.6-14.6); RBC Distribution Width SD 41.8 fl (35.1-43.9); Red Blood Count 5.04 M/mm3 (4.2-5.4)
[2019-02-11 10:34] LABS: Microalbumin,Random Urine 6.2 mg/L (NO RANGE EST.); Protein, Urine (Random) < 6.0 mg/dL (<11.9)
[2019-02-11 10:40] LABS: PTHIN 54.5 pg/mL (18.4-80.1)
[2019-02-11 10:41] LABS: Vitamin D,25 Hydroxy 53.4 ng/mL (29.95-100.01)
[2019-02-11 10:51] LABS: Albumin, Serum 3.4 g/dL (3.2-5.0); BUN 23 mg/dL (7-18); Calcium,Total 8.6 mg/dL (8.5-10.1); Chloride 107 mmol/L (98-107); Cholesterol 162 mg/dL (200); EST Glomerular Filtration Rate 57 mL/min (>60); Est Glom Filt Rate - Afr Amer 70 mL/min (>60); Glucose 88 mg/dL (74-106); High Density Lipoprotein 61 mg/dL; Phosphorus 2.3 mg/dL (2.5-4.9); Potassium 4.1 mmol/L (3.5-5.1); Sodium Level 139 mmol/L (136-145); Triglycerides 181 mg/dL; Very Low Density Lipoprotein 36 mg/dL (5-40)
== END ==
PROVIDERS: Family Provider Family Medicine; PCP Family Medicine; Referring Provider Family Medicine; Visit Provider Family Medicine
DX: E88.09 Other disorders of plasma-protein metabolism, not elsewhere classified (principal); E55.9 Vitamin D deficiency, unspecified; N18.3 Chronic kidney disease, stage 3 (moderate); D63.1 Anemia in chronic kidney disease; I12.9 Hypertensive chronic kidney disease with stage 1 through stage 4 chronic kidney disease, or unspecified chronic kidney disease
CPT/HCPCS: 36415; 80061; 80069; 81002; 82043; 82306; 82570; 83970; 84156; 85027

== ENCOUNTER → 2019-05-09 09:12 | Outpatient (CLI) | payer MEDICARE, SELFPAY ==
[2019-05-06 12:56] VITALS: BMI 26.0
--- NOTE | 2019-05-09 09:25 | RAD_ITS ---
STUDY: X-RAY CHEST REASON FOR EXAM: Female, 73 years old. wheezing; hx of smoking 20 years ago TECHNIQUE: PA and lateral views of the chest. COMPARISON: 08/22/2010. FINDINGS: The lungs are clear and expanded. There is no demonstrated pleural abnormality. Normal size heart. Normal mediastinum and katia. Normal visualized pulmonary arteries. There is atherosclerotic calcification of the aortic arch with tortuosity. There are diffuse degenerative changes of the visualized thoracic spine. There is degenerative osteoarthritis of the bilateral shoulders. There is no demonstrated abnormality of the visualized soft tissue structures of the upper abdomen. RAD/Chest PA and Lateral IMPRESSION: No acute cardiopulmonary disease. Electronically Signed: Brigette Rivera MD at 4:00 EST , Service support ,
== END ==
PROVIDERS: PCP Family Medicine; Referring Provider Internal Medicine Medical Oncology; Visit Provider Internal Medicine Medical Oncology
DX: R06.2 Wheezing (principal)
CPT/HCPCS: 71046

== ENCOUNTER → 2019-07-30 07:17 | Outpatient (CLI) | payer MEDICARE, SELFPAY ==
[2019-05-06 12:56] VITALS: BMI 26.0
[2019-07-30 10:33] LABS: AST(SGOT) 24 U/L (15-37); Alanine Aminotransfer ALT/SGPT 14 U/L (13-56); Albumin, Serum 3.8 g/dL (3.2-5.0); Alkaline Phosphatase 96 U/L (45-117); Anion Gap 6 (5-15); BUN 21 mg/dL (7-18); Calcium,Total 8.8 mg/dL (8.5-10.1); Chloride 108 mmol/L (98-107); Cholesterol 182 mg/dL (200); Creatinine, Serum 1.05 mg/dL (0.55-1.02); EST Glomerular Filtration Rate 54 mL/min (>60); Est Glom Filt Rate - Afr Amer 66 mL/min (>60); Glucose 97 mg/dL (74-106); High Density Lipoprotein 70 mg/dL; Potassium 3.9 mmol/L (3.5-5.1); Protein, Total 7.8 g/dL (6.4-8.2); Sodium Level 141 mmol/L (136-145); Triglycerides 223 mg/dL; Very Low Density Lipoprotein 45 mg/dL (5-40)
== END ==
PROVIDERS: PCP Family Medicine; Referring Provider Family Medicine; Visit Provider Family Medicine
DX: I10 Essential (primary) hypertension (principal); E78.5 Hyperlipidemia, unspecified
CPT/HCPCS: 36415; 80053; 80061

== ENCOUNTER → 2019-10-02 10:30 | Outpatient (CLI) | payer MEDICARE, SELFPAY ==
[2019-05-06 12:56] VITALS: BMI 26.0
--- NOTE | 2019-10-02 10:33 | BI_ITS ---
MAMMOGRAPHY - BILATERAL SCREENING 3-D TOMOSYNTHESIS REASON FOR EXAM: Female, 73 years old. Routine screening PERTINENT HISTORY: BILAT SCREENING - FAM HX OF 2 MATERNAL AUNT @ AGE 40-50''S - NO PREV SURG''S - BILAT MOLES MARKED - HX OF MULTIPLE MYELOMA OF 2010. TECHNIQUE: 2-D mammograms and 3-D Tomosynthesis of the breast (s) were performed. CAD was performed. COMPARISON: 09/30/2018 FINDINGS: The breast composition is composed of scattered fibroglandular density. Scattered benign calcifications are seen. No dense spiculated masses or suspicious microcalcifications are identified. No architectural distortion is identified. There is no skin thickening or retraction. There has been no significant change since the prior study. BI/SCREEN MAMM (CAD) W/WAQAS BILAT IMPRESSION: No mammographic signs of malignancy. Routine yearly mammograms recommended. ASSESSMENT CATEGORY: BIRADS Category 2: Benign. A letter regarding these results will be sent to the patient by the facility within 30 days. FOLLOW UP RECOMMENDATION: Yearly follow up mammogram recommended. (A) Approximately 10% of breast cancers are not detected by mammography. A normal mammogram should not delay biopsy of a clinically suspicious abnormality. Electronically Signed: Elbert Leo MD at 14:20 EDT , Service support ,
== END ==
PROVIDERS: PCP Family Medicine; Referring Provider Family Medicine; Visit Provider Family Medicine
DX: Z12.31 Encounter for screening mammogram for malignant neoplasm of breast (principal)
CPT/HCPCS: 77063; 77067

== ENCOUNTER → 2020-01-29 08:32 | Outpatient (CLI) | payer MEDICARE, SELFPAY ==
[2019-11-04 12:57] VITALS: BMI 26.6
[2020-01-29 10:12] LABS: Color, Urine Yellow (Yellow); Glucose, Dipstick Normal (Normal); Ketone-Dipstick Negative (Negative); Leukocyte Esterase-Dipstick Negative /ul (Negative); Nitrite-Dipstick Negative (Negative); Occult Blood-Urine Negative /ul (Negative); Protein-Dipstick Negative (Negative); Urine Bilirubin Dipstick Negative (Negative); Urine Clarity Clear (Clear); Urine Urobilinogen Normal (Normal)
[2020-01-29 10:26] LABS: Anion Gap 3 (5-15); BUN 21 mg/dL (7-18); BUN/Creat Ratio 22.1 RATIO (10-20); Calcium,Total 8.9 mg/dL (8.5-10.1); Chloride 109 mmol/L (98-107); Creatinine, Serum 0.95 mg/dL (0.55-1.02); EST Glomerular Filtration Rate 61 mL/min (>60); Est Glom Filt Rate - Afr Amer 73 mL/min (>60); Glucose 98 mg/dL (74-106); Phosphorus 2.3 mg/dL (2.5-4.9); Potassium 3.9 mmol/L (3.5-5.1); Sodium Level 140 mmol/L (136-145); Vitamin D,25 Hydroxy 60.3 ng/mL
[2020-01-29 10:34] LABS: Creatinine, Urine (random) < 13.00 mg/dL (NO RANGE EST.); Protein, Urine (Random) < 6.0 mg/dL (<11.9)
[2020-01-29 10:37] LABS: PTHIN 76.4 pg/mL (18.4-80.1)
[2020-01-29 14:27] LABS: Cholesterol 177 mg/dL (200); High Density Lipoprotein 71 mg/dL; Triglycerides 183 mg/dL; Very Low Density Lipoprotein 37 mg/dL (5-40)
== END ==
PROVIDERS: PCP Family Medicine; Referring Provider Family Medicine; Visit Provider Internal Medicine
DX: I12.9 Hypertensive chronic kidney disease with stage 1 through stage 4 chronic kidney disease, or unspecified chronic kidney disease (principal); N18.31 Chronic kidney disease, stage 3a; E55.9 Vitamin D deficiency, unspecified
CPT/HCPCS: 36415; 80048; 80061; 81002; 82306; 82570; 83970; 84100; 84156

== ENCOUNTER → 2020-02-09 09:40 | Outpatient (CLI) | payer MEDICARE, SELFPAY ==
[2018-11-05 13:09] VITALS: BMI 26.2
[2019-11-04 12:57] VITALS: BMI 26.6
--- NOTE | 2020-02-09 09:42 | US_ITS ---
STUDY: RENAL ULTRASOUND - COMPLETE REASON FOR EXAM: Female, 74 years old. CKD 3 TECHNIQUE: Ultrasound evaluation of the kidneys was performed with real-time and static frazier-scale imaging. COMPARISON: Comparison is made with prior study dated 12/09/2009. FINDINGS: RIGHT KIDNEY: with mild renal atrophy. The right kidney measures 9 cm x 4.7 cm x 4.3 cm. There is diffuse thinning of the renal cortex. The renal cortex measures 0.9 cm. There is a 9 mm x 8 mm x 8 mm renal cyst. There are no right renal calculi. There is no right hydronephrosis. DISTAL RIGHT URETER: There is non-visualization of the distal right ureter. There is no demonstrated right ureterovesical junction calculus. There is no demonstrated right ureteral jet. LEFT KIDNEY: with mild renal atrophy. The left kidney measures 9.2 cm x 4.9 cm x 4.4 cm. There is diffuse thinning of the renal cortex. The renal cortex measures 0.8 cm. There is a 3 cm x 2.5 cm x 2.6 cm complex cystic mass in the lower pole with increased vascularity. A neoplastic process should be ruled out. There are no left renal calculi. There is no left hydronephrosis. DISTAL LEFT URETER: There is non-visualization of the distal left ureter. There is no demonstrated left ureterovesical junction calculus. There is no demonstrated left ureteral jet. BLADDER: The distended urinary bladder has a volume of 88.7 ml. Incidental note is made of gallstones. US/Kidney and Bladder IMPRESSION: Mild bilateral renal atrophy. 3 cm x 2.5 cm x 2.6 cm complex mass in the lower pole of the left kidney. Correlation with a CT scan following IV contrast is recommended. Electronically Signed: Amandeep Porter, at 14:39 EST , Service support ,
== END ==
PROVIDERS: Family Provider Family Medicine; PCP Family Medicine; Referring Provider Internal Medicine; Visit Provider Internal Medicine
DX: N18.30 Chronic kidney disease, stage 3 unspecified (principal)
CPT/HCPCS: 76770

== ENCOUNTER → 2020-02-12 08:13 | Outpatient (CLI) | payer MEDICARE, SELFPAY ==
[2019-11-04 12:57] VITALS: BMI 26.6
[2020-02-12 10:18] LABS: Absolute Lymphocyte Count 1.33 X10^3/uL (0.83-4.51); Absolute Neutrophil Count 4.8 X10^3/uL (2.0-7.7); Basophil# 0.04 X10^3/uL; Basophil% 0.6 % (0-1); Eosinophil# 0.12 X10^3/uL; Eosinophils% 1.8 % (0-5); Hematocrit 49.8 % (37-47); Hemoglobin 15.8 g/dL (12.0-15.0); Lymphocyte # 1.33 X10^3/ul (4.0); Lymphocyte % 19.4 % (19-41); Mean Corp Hgb Conc 31.7 g/dL (32-36); Mean Corpuscular Volume 94.5 fL (81-99); Mean Platelet Vol. 9.3 fl (6.2-12.0); Monocyte# 0.52 X10^3/uL; Monocyte% 7.6 % (0-10); NRBC Flagged by Analyzer 0 % (0-5); Neutrophil # 4.83 X10^3/uL (2.7-7.7); Neutrophil % 70.5 % (47-70); Platelet Count 235 K/mm3 (150-450); RBC Distribution Width CV 12.8 % (11.6-14.6); Red Blood Count 5.27 M/mm3 (4.2-5.4); White Blood Count 6.9 K/mm3 (4.4-11.0)
== END ==
PROVIDERS: PCP Family Medicine; Referring Provider Family Medicine; Visit Provider Family Medicine
DX: C90.00 Multiple myeloma not having achieved remission (principal)
CPT/HCPCS: 36415; 85025

== ENCOUNTER → 2020-03-08 07:37 | Outpatient (CLI) | payer MEDICARE, SELFPAY ==
[2019-11-04 12:57] VITALS: BMI 26.6
--- NOTE | 2020-03-08 07:41 | CT_ITS ---
STUDY: CT ABDOMEN AND PELVIS WITH AND WITHOUT CONTRAST REASON FOR EXAM: Female, 74 years old. FOLLOW UP US--LEFT RENAL CYST -- MICROHEMATURIA, RIGHT FLANK PAIN and amp; EPIGASTRIC PAIN -- HX-MULTIPLE MYELOMA-REMISSION SINCE 2011 RADIATION DOSAGE (If Supplied By Facility): CTDIvol = ( 11.23 ) mGy, DLP = ( 1235.32 ) mGycm TECHNIQUE: Transaxial images were obtained from the dome of the diaphragm to the symphysis pubis without oral contrast. 100CC ISOVUE 370 was administered. Sagittal and coronal images were reconstructed. Individualized dose optimization techniques were used for this CT. COMPARISON: None. FINDINGS: The visualized lung bases are unremarkable. The visualized portions of the heart are within normal limits. There is decreased attenuation of the liver consistent with steatosis. There are multiple small gallstones. Normal spleen. Normal pancreas. Normal bilateral adrenal glands. Normal right kidney. There is a 3.5 cm x 2.4 cm x 2.9 cm complex cystic mass in the lower pole region of the left kidney. There is a small hiatal hernia. Normal small intestine. Normal colon. The appendix is visualized and appears normal. There is diffuse atherosclerotic calcification of the abdominal aorta, without a demonstrated aneurysm. Normal inferior vena cava. There is borderline retroperitoneal lymphadenopathy with enlarged nodes no greater than 10mm in the short axis diameter. Normal urinary bladder. Normal abdominal wall. There are mild degenerative changes of the visualized lumbar spine. Demineralization of the lumbar vertebrae. CT/CT Abd/Pelvis W/WO Contrast IMPRESSION: Complex cystic mass in the lower pole of the left kidney as described. A biopsy may be indicated. Electronically Signed: Amandeep Porter, at 11:08 EST , Service support ,
== END ==
PROVIDERS: PCP Family Medicine; Referring Provider Nurse Practitioner Adult Health; Visit Provider Nurse Practitioner Adult Health
DX: N28.1 Cyst of kidney, acquired (principal); R31.29 Other microscopic hematuria
CPT/HCPCS: 74178; Q9967

== ENCOUNTER → 2020-03-30 08:41 | Outpatient (CLI) | payer MEDICARE, SELFPAY ==
[2019-11-04 12:57] VITALS: BMI 26.6
--- NOTE | 2020-03-30 08:43 | US_ITS ---
STUDY: ABDOMINAL ULTRASOUND - RIGHT UPPER QUADRANT REASON FOR VISIT: Female, 74 years old RUQ PAIN, NAUSEA, GALLSTONES SEEN ON PREVIOUS CT TECHNIQUE: Ultrasound evaluation of the right upper quadrant was performed with real-time and static birch-scale imaging. TECHNICAL QUALITY: Adequate. COMPARISON: Comparison is made with prior CT scan dated 03/08/2020. FINDINGS: Liver: The liver measures 12.8 cm. There is increased echogenicity consistent with fatty infiltration. The bile ducts are within normal limits. There is hepatic color flow. The direction of portal flow is hepatopetal. There is no demonstrated mass lesion. Gallbladder: Normal distended gallbladder. The gallbladder wall measures 4 mm. There is a positive sonographic Lawson''s sign. There is no pericholecystic fluid. There are multiple echogenic structures within the gallbladder, consistent with multiple gallstones. Common Bile Duct (C.B.D.): The common bile duct measures 2 mm. Pancreas: Normal size of the head, body and tail of the pancreas. There is normal echogenicity of the pancreas. There is no demonstrated pancreatic mass or cyst. Right Kidney: There is atrophy of the right kidney. The right kidney measures 8.7 cm x 3.9 cm x 4.5 cm. Normal renal cortex. The right cortex measures 1 cm. There is no demonstrated renal mass or cyst. There is no right hydronephrosis. US/Gallbladder IMPRESSION: Fatty infiltration of the liver. Multiple gallstones. Electronically Signed: Amandeep Porter, at 14:51 EST , Service support ,
== END ==
PROVIDERS: PCP Family Medicine; Referring Provider Registered Nurse; Visit Provider Registered Nurse
DX: R10.9 Unspecified abdominal pain (principal)
CPT/HCPCS: 76705

== ENCOUNTER 2020-05-03 07:49 | Day surgery (SDC) | payer MEDICARE, SELFPAY ==
[2020-04-08 09:22] VITALS: BMI 26.9
--- NOTE | 2020-04-13 11:53 | EKG12_ITS ---
Test Reason : PREOP Blood Pressure : / mmHG Vent. Rate : 087 BPM Atrial Rate : 087 BPM P-R Int : 154 ms QRS Dur : 082 ms QT Int : 346 ms P-R-T Axes : 059 -20 027 degrees QTc Int : 416 ms Normal sinus rhythm Leftward axis Nonspecific T wave abnormality Confirmed by JEAN MARIE FRAZIER, AKROLINE ([id number]), pictures editor RAYNE LYMAN ([id number]) on 04/14/2020 9:22:14 AM Referred By: Red Bhatti Confirmed By:KAROLINE AJ MD
[2020-05-03] VITALS (8 sets, daily range): BP systolic 69–148; BP diastolic 53–77; PULSE 50–98; RESP 16; TEMP 36.2–36.9; O2SAT 93–100; BMI 26.2
--- NOTE | 2020-05-03 05:00 | HP_ITS ---
Intake Vital Signs 04/08/20 Height 5 ft 2 in 04/08/20 Weight: 147 lb 8 oz 04/08/20 BMI 26.9 04/08/20 BP 138/76 H 04/08/20 Blood Pressure Location Rt brachial 04/08/20 Position Sitting 04/08/20 Respiration 20 H 04/08/20 Pulse 81 04/08/20 Pulse Source NIBP 04/08/20 Temp 98.1 F 04/08/20 Temp Source Temporal 04/08/20 Pulse Oximetry (%) 100 04/08/20 Oxygen Delivery Method room air Intake Visit Reasons: GALLSTONES Chief Complaint: gallstones Greeting Card Writer Required: No Is patient in pain?: No Allergies NSAIDS (Non-Steroidal Anti-Inflamma Adverse Reaction (Severe, Verified 04/08/20 09:23) Other Medications Cholecalciferol (VIT D3) [Vitamin D3] 2,000 unit PO DAILY 04/18/15 [History Confirmed 04/08/20] Magnesium 400 mg PO DAILY 04/18/15 [History Confirmed 04/08/20] Multivitamin [Daily Multiple Vitamin] 2 ea PO DAILY 08/04/16 [History Confirmed 04/08/20] Amlodipine Besylate [Norvasc] 5 mg PO DAILY 11/07/16 [History Confirmed 04/08/20] Pravastatin [Pravachol] 40 mg PO QHS 06/12/17 [History Confirmed 04/08/20] Vit A/Vit C/Vit E/Zinc/Copper [Preservision Areds Softgel] 1 tab PO BID 11/05/18 [History Confirmed 04/08/20] Is last menstrual period known: No Post menopausal: Yes Patient : No [facility] Medical History (Updated 04/08/20 @ 09:21 by Petrona Toledo) Anemia (Acute) Gallstones (Acute) Hemorrhoid (Acute) Kidney disease (Acute) Macular degeneration (Acute) Osteoporosis (Acute) Tendinitis of left foot (Acute) HTN (hypertension) (Chronic) Surgical History (Updated 04/08/20 @ 09:21 by Petrona Toledo) H/O cataract (Acute) History of esophagogastroduodenoscopy (EGD) (Acute) History of tonsillectomy (Acute) History of tubal ligation (Acute) History of wisdom tooth extraction (Acute) Family History Father Hypertension Heart disease Mother Hypertension Social History (Updated 04/08/20 @ 14:[address] Red Bhatti MD) Smoking Status: Never smoker HPI HPI HPI: FRIEDA ALLEN, is a 74 F who presents to the office today for HPI HPI Surgical H&P: Yes HPI: FRIEDA ALLEN, is a 74 F who presents to the office today for Right upper quadrant pain. The patient has been experiencing right upper quadrant pain especially when eating. It radiates to the back into the right shoulder. She does not have any nausea or vomiting. She describes no fevers or chills. ROS General General: No weight change, appetite, fatigue, colon cancer, breast cancer or weakness HEENT HEENT: No difficulty swallowing, eye injury, eye surgery, swollen glands or hoarseness Endo Endocrine: No thyroid disease, diabetes mellitus, thyroid cancer, Hair loss, heat intolerance or cold intolerance Musc Musculoskeletal: Yes arthritis; no back problems, rheumatoid arthritis, gout or joint pain Cardio Cardiovascular: Yes high blood pressure; no murmur, pacemaker, heart disease, atrial fibrillation, heart attack, heart stent, palpitations, shortness of breat with exertion or chest pain Psych Psychiatric: No depression, anxiety or hearing voices Resp Respiratory: No shortness of breath, No sleep apnea, No cough, No COPD, No asthma, No emphysema, No wheezing Gastro Gastrointestinal: No abdominal pain, No nausea or vomiting, No diarrhea, No constipation, No blood in stool, No acid reflux, Yes hemorrhoids, No ulcers, Yes gallbladder problem, No black,tarry stools Capo Hematologic: No blood thinners, No blood disorders, No bleeding, No anemia, No blood clots Neuro Neurologic: No weakness Exam Const General: cooperative Orientation: alert, oriented x3 Resp Effort & Inspection: normal respiratory effort Auscultation: clear to auscultation bilaterally Cardio Rate: regular rate Rhythm: regular rhythm Heart Sounds: no murmurs GI Inspection: non-distended Palpation: soft, nontender Assessment & Plan Problems 1. Calculus of gallbladder without cholecystitis without obstruction K80.20 Plan The patient is having right upper quadrant pain especially after meals that radiates to the back and right shoulder. She had an ultrasound which shows multiple gallstones in the gallbladder. At this time the patient reports only pain with eating and no nausea or vomiting so I do not believe she has acute cholecystitis. I do recommend laparoscopic cholecystectomy for her. I discussed the procedure in detail with the patient. I discussed the risks, benefits, and alternatives of the procedure. I discussed the risks including but not limited to bleeding, infection, injury to surrounding organs such as the liver, bile duct, bowels. I did discuss the possibility of having to convert to an open procedure as well as the possibility that if any injuries occurred this may necessitate further surgery at a tertiary care center. We discussed the current risks associated with COVID-19. While it is understood that there is a community spread of COVID-19, the risk of cas COVID-19 while at [facility] ([facility]) is very low; however, the risk cannot be completely mitigated because of the community spread of the disease. We discussed in detail the risk of exposure to and/or potential harm posed by the COVID-19 virus with having a surgery/procedure at this time versus the risk of delaying the surgery/procedure. It is not possible to know either the risk of delaying the surgery or procedure or chance of getting an infection with perfect accuracy, but a joint decision was made to proceed at this time with the scheduled surgery/procedure as indicated on the consent form. Patient was notified that we will need to comply with any screening or testing [facility] wishes to perform or that surgery may be delayed for any positive results. Red Bhatti MD Pager: [facility] [address] [place] [address], [address] [place] [address] Office: Coding Level of Care Code Off vis,new,level 3 Diagnoses Calculus of gallbladder without cholecystitis without obstruction K80.20 ??Cholelithiasis location: gallbladder ??Cholecystitis presence: without cholecystitis ??Biliary obstruction: without biliary obstruction I have re-examined the patient. There are no clinical changes since date of exam.
[2020-05-03] MEDS: Lactated Ringers 1,000 ML 100 ML IV ×2 (08:30→12:15)
[2020-05-03] MEDS: Cefotetan 2 GM in 0.9% NS 100 ML IV (08:59)
[2020-05-03] MEDS: Bupiv/Epi 0.25% 30 ML Vial (09:00)
--- NOTE | 2020-05-03 09:10 | RAD_ITS ---
STUDY: INTRAOPERATIVE CHOLANGIOGRAM. REASON FOR EXAM: Female, 74 years old. CHOLANGIOGRAM FLUOROSCOPY TIME (if supplied): ( 9.7 seconds ) minutes/seconds. A cine loop of 65 images was submitted. TECHNIQUE: An intraoperative cholangiogram was performed by the surgeon. Imaging was submitted. COMPARISON: None. FINDINGS: The intrahepatic biliary ducts are unremarkable. The common bile duct is not dilated. No intraluminal filling defect is seen. Contrast is seen within the duodenum. RAD/Cholangiogram/ O R,Initial IMPRESSION: Unremarkable intraoperative cholangiogram. Electronically Signed: Amandeep Porter MD at 13:00 EST , Service support ,
--- NOTE | 2020-05-03 09:30 | GALL_PTH ---
PATIENT: FRIEDA ALLEN LOC: [facility] U#:[id number] AGE/SX: 74/F ROOM: RE05/03/[address]: Dr. Red Bhatti MD : [id number] BED: DIS: 05/03/2020 SPEC #: [id number] RECD: 05/03/20 10:20 STATUS: JASWINDER KHALIDA #: [id number] RMAA: 05/03/20 09:[address]: Red Bhatti DEPT: SURGICAL PATHOLOGY RECD BY: Radha Campbell ENTERED: 05/03/20 10:35 SP TYPE: SHORTY FOLEY DR: Dr. Polo Fuentes MD Tissues: Gallbladder, NOS Procedures: Surgery Specimen Level III HEADER OPERATION: Laparoscopic cholecystectomy with IOC PRE-OP DIAGNOSIS: Calculus of gallbladder TISSUE SUBMITTED: Gallbladder MICROSCOPIC DIAGNOSIS Gallbladder, cholecystectomy: Mild chronic cholecystitis and cholelithiasis. SJ:yolette 05/04/2020 MICROSCOPIC DESCRIPTION Slides are reviewed. GROSS DESCRIPTION Received is one container labeled with the patient's name and designated gallbladder. The specimen consists of a gallbladder measuring 9 cm in length and up to 4 cm in diameter. The external surface is pink-nicole, smooth and glistening for the most part. Focally it is granular, hemorrhagic and contains cautery artifact. The gallbladder contains green-yellow mucoid bile and seven irregular and multifaceted black stones measuring in aggregate 2.5 x 2 x 1 cm and 0.5 to 0.8 cm in greatest dimension. The mucosa is bile-stained and without any mass lesions. The gallbladder wall measures 0.1 cm in thickness. Guest History Clerk sections from the gallbladder and the cystic duct are submitted in one cassette. / SJ:yolette 05/03/20 TC:3 CPT: 07822
--- NOTE | 2020-05-03 10:04 | PCM.OPRPT ---
Problem List (1) Cholelithiasis Status: Acute Qualifiers: Cholelithiasis location: gallbladder Cholecystitis presence: without cholecystitis Biliary obstruction: without biliary obstruction Qualified Code(s): K80.20 - Calculus of gallbladder without cholecystitis without obstruction (2) Biliary colic Status: Acute Report of Operation Date of Procedure: 05/03/20 Pre-Operative Diagnosis: Cholelithiasis with biliary colic Post-Operative Diagnosis: Same Surgery/Procedure Performed:: Laparoscopic cholecystectomy with cholangiogram Specimen's removed: Gallbladder and contents Description of Procedure: After obtaining informed consent patient was brought back to the operating room. General anesthesia was induced. The abdomen was prepped and draped in usual sterile fashion. A small midline incision was made superior to the umbilicus and deepened to the level of fascia. The fascia was elevated and incised. Next the peritoneum was elevated and incised in the same fashion. Finger sweep was performed and the Lgauna trocar was placed into the abdomen. The balloon was inflated. The abdomen was inflated to 15 mmHg. Next a camera was introduced into the abdomen and the abdomen was inspected. Next under direct visualization three 5-mm ports were placed one subxiphoid and 2 subcostal. Next the gallbladder was elevated and retracted toward the right shoulder. The peritoneum was stripped from the gallbladder. The infundibulum was located and retracted laterally. Next the triangle of Calot was dissected and the cystic duct and cystic artery were identified. Cholangiograms were performed. The Riddle clamp was used to clamp across the infundibulum and the catheter needle was inserted into the gallbladder. Under fluoroscopy contrast was instilled into the gallbladder and the common duct, cystic duct as well as proximal hepatic ducts were identified. There was good filling of the duodenum. There were no filling defects noted in the common bile duct. The clamp was removed as well as the needle and the infundibulum was grasped once more. Three hemolock clips were placed across the cystic duct. The cystic duct was then divided leaving 2 clips on the stump. The cystic artery was clipped and divided in the same fashion. The hook cautery was then used to take the gallbladder off of the gallbladder bed. Hemostasis was obtained. Gallbladder fossa was irrigated and no active bleeding or bile leakage was noted. Next the camera was introduced in the subxiphoid port. An Endopouch bag was placed through the umbilical port and the gallbladder was placed into it. The gallbladder was then removed through the umbilical incision. The camera was then reinserted through the umbilical port. The gallbladder fossa was inspected once more and noted to be hemostatic with no leaking bile. The abdomen was suctioned dry. The 5 mm ports were removed under direct visualization. The umbilical port was then removed and the air was removed from the abdomen. Next using an 0 Vicryl suture the umbilical fascia was closed in a [id number] fashion. The umbilical port site was irrigated local anesthetic was administered to all the incisions. All the incisions were closed with interrupted subcuticular 4-0 Monocryl sutures followed by Steri-Strips and dressings. The patient was awoken and taken to PACU in stable condition. - Admit VTE Documentation VTE Mechan Device Prophylaxis: SCD's
--- NOTE | 2020-05-03 10:06 | DCINST_ITS ---
Discharge Diet: Light diet - advance as tolerated Discharge Activity: Return to Normal Activity, May Not Drive - for 2-3 days or while taking narcotic pain medicataions., - - Do not drive, work heavy equipment or sign legal documents for 24 hours. May shower in (days): 1 - with the bandage in place. Lifting Restrictions: 20 lbs for 2 weeks Additional Activity Instructions:: Pain medication may cause nausea. You should typically eat light foods as you take your pain medications. Pain medication may also cause constipation. If this is a problem for you, please discuss with your doctor. Call your doctor if your incision/area has: Continuous Slow Oozing, Sudden Increased Bleeding, Increased Pain/ Swelling, Increased Redness, Foul Smelling Discharge, Fever of 101 or Higher Call your doctor if you observe: Fever of 101 or Higher Suture Line Care: Avoid Pulling/Pushing, Avoid Pinching/Bending Additional Dressing/Incision Instructions:: Leave operative bandaids on for 2 days. When you remove dressing, leave Steri-Strips on until your follow-up appointment, or until the Steri-Strips fall off on their own. Allergies/Adverse Reactions: Allergies NSAIDS (Non-Steroidal Anti-Inflamma Adverse Reaction (Severe, Verified 05/03/20 08:16) Other CAN NOT HAVE DUE TO KIDNEY DISEASE STAGE 3 Medications to take at Discharge Cholecalciferol (VIT D3) [Vitamin D3] 2,000 unit PO DAILY 04/18/15 Magnesium 400 mg PO DAILY 04/18/15 Multivitamin [Daily Multiple Vitamin] 2 ea PO DAILY 08/04/16 Amlodipine Besylate [Norvasc] 5 mg PO QHS 11/07/16 Pravastatin [Pravachol] 40 mg PO QHS 06/12/17 Vit A/Vit C/Vit E/Zinc/Copper [Preservision Areds Softgel] 1 tab PO BID 11/05/18 Oxycodone HCl/Acetaminophen [Percocet 5-325 mg Tablet] 1 tab PO Q6H PRN PRN 5 Days #10 tablet 05/03/20 The following prescriptions were given: Oxycodone HCl/Acetaminophen [Percocet 5-325 mg Tablet] 1 tab PO Q6H PRN PRN 5 Days #10 tablet PRN Reason: Pain Score 4-10/10 Transmission Status: Sent to [facility] Primary Care Physician: Polo Fuentes MD [Primary Care Provider] - Test Results: Test results from this visit will be discussed in further detail at your follow- up appointment, if applicable. Please Follow Up With: Red Bhatti MD When: Please call to schedule 2 week follow up appointment. [phone]
[2020-05-03] MEDS: oxyCODONE 5 MG Tablet PO (10:41)
[2020-05-03] MEDS: Acetaminophen 325 MG Tablet PO (10:41)
== END 2020-05-03 13:15 | disposition home or self-care (01) ==
LOC: SDC 07:50 → AC 07:50
PROVIDERS: PCP Family Medicine; Referring Provider Surgery; Visit Provider Surgery
PROC: (CPT 47610; principal; 2020-05-03 09:10)
DX: K80.10 Calculus of gallbladder with chronic cholecystitis without obstruction (principal); I10 Essential (primary) hypertension; Z88.6 Allergy status to analgesic agent
CPT/HCPCS: 47563; 74300; 76000; 87426; 88304; 93005; C9803; J7120; J2405

== ENCOUNTER → 2020-07-26 08:34 | Outpatient (CLI) | payer MEDICARE, SELFPAY ==
[2020-05-10 13:37] VITALS: BMI 26.2
[2020-07-26 08:40] LABS: Bacteria 0 SEEN /hpf (None Seen); Mucous, Urine 0 SEEN /hpf (<or=2+); Red Blood Cells-Urine 0 SEEN /hpf (0-5)
[2020-07-26 09:50] LABS: Color, Urine Yellow (Yellow); Glucose, Dipstick Normal (Normal); Ketone-Dipstick Negative (Negative); Leukocyte Esterase-Dipstick 100 /ul (Negative); Nitrite-Dipstick Negative (Negative); Occult Blood-Urine Negative /ul (Negative); Protein-Dipstick 15 mg/dl (Negative); Specific Gravity, Urine 1.015 (1.002-1.030); Urine Bilirubin Dipstick Negative (Negative); Urine Clarity Sl. Cloudy (Clear); Urine Urobilinogen Normal (Normal)
[2020-07-26 10:00] LABS: Squamous Epithelial Cells - UA 0-5 SEEN /hpf (5-10); White Blood Cells 0-5 SEEN /hpf (0-5)
[2020-07-26 10:06] LABS: Protein, Urine (Random) 12.6 mg/dL (<11.9); Protein:Creat Ratio 89 mg/g CRE (0-200)
[2020-07-26 10:07] LABS: Vitamin D,25 Hydroxy 47.7 ng/mL
[2020-07-26 10:11] LABS: Anion Gap 6 (5-15); BUN 19 mg/dL (7-18); BUN/Creat Ratio 19.3 RATIO (10-20); Calcium,Total 8.9 mg/dL (8.5-10.1); Chloride 105 mmol/L (98-107); Cholesterol 181 mg/dL (200); Creatinine, Serum 0.98 mg/dL (0.55-1.02); EST Glomerular Filtration Rate 58 mL/min (>60); Est Glom Filt Rate - Afr Amer 71 mL/min (>60); Glucose 102 mg/dL (74-106); High Density Lipoprotein 63 mg/dL; Magnesium 2.6 mg/dL (1.6-2.6); Potassium 3.9 mmol/L (3.5-5.1); Sodium Level 139 mmol/L (136-145); Triglycerides 275 mg/dL; Very Low Density Lipoprotein 55 mg/dL (5-40)
== END ==
PROVIDERS: PCP Family Medicine; Visit Provider Family Medicine
DX: Z00.00 Encounter for general adult medical examination without abnormal findings (principal); N18.30 Chronic kidney disease, stage 3 unspecified
CPT/HCPCS: 80048; 80061; 81001; 82306; 82570; 83735; 84156

== ENCOUNTER → 2020-09-20 13:44 | Outpatient (CLI) | payer MEDICARE, SELFPAY ==
[2020-05-10 13:37] VITALS: BMI 26.2
--- NOTE | 2020-09-20 13:55 | CT_ITS ---
STUDY: CT ABDOMEN AND PELVIS WITH AND WITHOUT CONTRAST REASON FOR EXAM: Female, 74 years old. Renal cyst RADIATION DOSAGE (If Supplied By Facility): CTDIvol = ( 16.22 ) mGy, DLP = ( 2259.96 ) mGycm TECHNIQUE: Transaxial images were obtained from the dome of the diaphragm to the symphysis pubis without oral contrast. IV 100mL Isovue-370 was administered. Sagittal and coronal images were reconstructed. Individualized dose optimization techniques were used for this CT. COMPARISON: Comparison is made with prior study dated 03/08/2020. FINDINGS: The visualized lung bases are unremarkable. The visualized portions of the heart are within normal limits. There is decreased attenuation of the liver consistent with steatosis. There are surgical clips in the gallbladder fossa consistent with a prior cholecystectomy. Normal spleen. Normal pancreas. Normal bilateral adrenal glands. Normal right kidney. There is a 3.8 cm x 3.2 cm x 3.7 cm complex cystic mass in the lower pole of the left hip. This is increased in size as compared to prior study. Normal visualized stomach. Normal small intestine. There are scattered colonic diverticula consistent with diverticulosis. The appendix is visualized and appears normal. There is scattered atherosclerotic calcification of the abdominal aorta, without a demonstrated aneurysm. Normal inferior vena cava. Normal retroperitoneum. Normal urinary bladder. Normal abdominal wall. There are degenerative changes of the visualized lumbar spine. Minimal anterior listhesis of L4 on L5. CT/CT Abd/Pelvis W/WO Contrast IMPRESSION: Persistent complex cystic mass in the lower pole of the left kidney as described. This has increased in size as compared to prior study. Tissue diagnosis is recommended. Electronically Signed: Amandeep Porter MD at 15:32 EDT , Service support ,
[2020-09-20 14:26] LABS: CREATININE FINGERSTICK 1.4 mg/dL (0.55-1.02)
== END ==
PROVIDERS: PCP Family Medicine; Referring Provider Nurse Practitioner Adult Health; Visit Provider Nurse Practitioner Adult Health
DX: N28.1 Cyst of kidney, acquired (principal); R31.21 Asymptomatic microscopic hematuria
CPT/HCPCS: 74178; Q9967; A4216

== ENCOUNTER → 2020-10-13 11:18 | Outpatient (CLI) | payer MEDICARE, SELFPAY ==
[2020-05-10 13:37] VITALS: BMI 26.2
--- NOTE | 2020-10-13 11:21 | BI_ITS ---
MAMMOGRAPHY - BILATERAL SCREENING REASON FOR EXAM: Female, 74 years old. Routine annual screening examination. PERTINENT HISTORY: Aunts with breast cancer. TECHNIQUE: Digital bilateral breast waqas (3D mammographic acquisition) in the CC and MLO projections. 2-D mediolateral oblique (MLO) and craniocaudad (CC) views of both breasts were obtained. CAD: Full Field Digital Mammography with Computer Added Detection was performed. COMPARISON: Comparison is made with prior study dated 10/02/2019 and 09/30/2018. FINDINGS: Breast Composition: There are scattered areas of fibroglandular density. There are no dominant masses or suspicious calcifications. No other significant abnormalities are identified. There has been no significant change since the prior study. BI/SCRN MAMM (CAD)W/WAQAS BILAT IMPRESSION: Stable bilateral screening mammogram. Yearly follow-up mammogram recommended. (A) ASSESSMENT CATEGORY: BIRADS Category 1: Negative. A letter regarding these results will be sent to the patient by the facility within 30 days. Approximately 10% of breast cancers are not detected by mammography. A normal mammogram should not delay biopsy of a clinically suspicious abnormality. [id number] Electronically Signed: Amandeep Porter MD at 12:02 EDT , Service support ,
== END ==
PROVIDERS: PCP Family Medicine; Referring Provider Family Medicine; Visit Provider Family Medicine
DX: Z12.31 Encounter for screening mammogram for malignant neoplasm of breast (principal); Z80.3 Family history of malignant neoplasm of breast
CPT/HCPCS: 77063; 77067

== ENCOUNTER → 2021-01-27 08:32 | Outpatient (CLI) | payer MEDICARE, SELFPAY ==
[2021-01-27 08:36] LABS: Bacteria 0 SEEN /hpf (None Seen); Mucous, Urine 0 SEEN /hpf (<or=2+); Red Blood Cells-Urine 0 SEEN /hpf (0-5)
[2021-01-27 09:17] LABS: Anion Gap 6 (5-15); BUN 24 mg/dL (7-18); BUN/Creat Ratio 22.4 RATIO (10-20); Calcium,Total 8.9 mg/dL (8.5-10.1); Chloride 108 mmol/L (98-107); Creatinine, Serum 1.07 mg/dL (0.55-1.02); EST Glomerular Filtration Rate 53 mL/min (>60); Est Glom Filt Rate - Afr Amer 64 mL/min (>60); Glucose 127 mg/dL (74-106); Magnesium 2.1 mg/dL (1.6-2.6); Potassium 3.5 mmol/L (3.5-5.1); Sodium Level 142 mmol/L (136-145)
[2021-01-27 09:19] LABS: PTHIN 101.8 pg/mL (18.4-80.1)
[2021-01-27 09:23] LABS: Vitamin D,25 Hydroxy 50.2 ng/mL
[2021-01-27 12:09] LABS: Color, Urine Yellow (Yellow); Glucose, Dipstick Normal (Normal); Ketone-Dipstick Negative (Negative); Leukocyte Esterase-Dipstick 500 /ul (Negative); Nitrite-Dipstick Negative (Negative); Occult Blood-Urine 10 /ul (Negative); Protein-Dipstick 15 mg/dl (Negative); Urine Bilirubin Dipstick Negative (Negative); Urine Clarity Sl. Cloudy (Clear); Urine Urobilinogen Normal (Normal)
[2021-01-27 12:18] LABS: White Blood Cells 10-25 SEEN /hpf (0-5)
[2021-01-27 12:19] LABS: Squamous Epithelial Cells - UA 0-5 SEEN /hpf (5-10)
[2021-01-27 12:38] LABS: Protein, Urine (Random) 26.2 mg/dL (<11.9); Protein:Creat Ratio 142 mg/g CRE (0-200)
== END ==
PROVIDERS: PCP Family Medicine; Referring Provider Internal Medicine; Visit Provider Internal Medicine
DX: N18.31 Chronic kidney disease, stage 3a (principal)
CPT/HCPCS: 80048; 81001; 82306; 82570; 83735; 83970; 84100; 84156

== ENCOUNTER → 2021-02-02 08:24 | Outpatient (CLI) | payer MEDICARE, SELFPAY ==
[2021-02-02 13:49] LABS: Cholesterol 163 mg/dL (200); High Density Lipoprotein 63 mg/dL; Triglycerides 180 mg/dL; Very Low Density Lipoprotein 36 mg/dL (5-40)
== END ==
PROVIDERS: PCP Family Medicine; Referring Provider Family Medicine; Visit Provider Family Medicine
DX: I10 Essential (primary) hypertension (principal)
CPT/HCPCS: 80061

== ENCOUNTER → 2021-03-25 17:34 | Outpatient (CLI) | payer MEDICARE, SELFPAY | PROVIDERS: PCP Family Medicine; Visit Provider Family Medicine | DX: R35.0 Frequency of micturition (principal) | CPT/HCPCS: 87086 ==

== ENCOUNTER 2021-06-02 14:46 | Outpatient (CLI) | payer MEDICARE, SELFPAY ==
--- NOTE | 2021-06-02 15:33 | CT_ITS ---
STUDY: CT ABDOMEN AND PELVIS WITH AND WITHOUT CONTRAST REASON FOR EXAM: Female, 75 years old. LT RENAL MASS. History of multiple myeloma. RADIATION DOSAGE (If Supplied By Facility): CTDIvol = ( 15.31 ) mGy, DLP = ( 2172.97 ) mGycm TECHNIQUE: Transaxial images were obtained from the dome of the diaphragm to the symphysis pubis without oral contrast. IV 100mL Isovue-300 was administered. Sagittal and coronal images were reconstructed. Individualized dose optimization techniques were used for this CT. COMPARISON: Comparison is made with prior examination dated 09/20/2020. FINDINGS: The visualized lung bases are unremarkable. The visualized portions of the heart are within normal limits. There is decreased attenuation of the liver consistent with steatosis. The patient is status post cholecystectomy. Normal spleen. Normal pancreas. Normal bilateral adrenal glands. Normal right kidney. There is a 4.5 cm x 3.1 cm complex cystic mass in the lower pole of the left kidney. This has increased in size as compared to prior study. Normal visualized stomach. Normal small intestine. There are scattered colonic diverticula consistent with diverticulosis. The appendix is visualized and appears normal. There is scattered atherosclerotic calcification of the abdominal aorta, without a demonstrated aneurysm. Normal inferior vena cava. Normal retroperitoneum. Normal urinary bladder. Normal abdominal wall. There are degenerative changes of the visualized lumbar spine. Minimal anterior listhesis of L4 on L5. CT/CT Abd/Pelvis W/WO Contrast IMPRESSION: The complex cystic mass in the lower pole of the left kidney has increased in size presently measuring 4.5 sinus by 3.1 cm. Fatty infiltration of the liver. The patient is status post cholecystectomy. Electronically Signed: Amandeep Porter MD at 8:35 EST ,
== END 2021-06-02 23:59 | disposition home or self-care (01) ==
LOC: CT 14:48
PROVIDERS: PCP Family Medicine; Referring Provider Urology; Visit Provider Urology
DX: N28.89 Other specified disorders of kidney and ureter (principal)
CPT/HCPCS: 74178; Q9967

== ENCOUNTER 2021-06-20 11:20 | Day surgery (SDC) | payer MEDICARE, SELFPAY ==
[2021-06-20] VITALS (7 sets, daily range): BP systolic 95–149; BP diastolic 57–80; PULSE 84–99; RESP 16–18; TEMP 36.3–36.8; O2SAT 96–100; BMI 25.4
--- NOTE | 2021-06-20 11:26 | EKG12_ITS ---
Test Reason : PRE OP Blood Pressure : / mmHG Vent. Rate : 087 BPM Atrial Rate : 087 BPM P-R Int : 148 ms QRS Dur : 084 ms QT Int : 382 ms P-R-T Axes : 056 -31 042 degrees QTc Int : 459 ms Normal sinus rhythm Left axis deviation Abnormal ECG When compared with ECG of 13-APR-2020 12:01, No significant change was found Confirmed by SAMIR FRAZIER, BRODY ([id number]), avid editor RAYNE LYMAN ([id number]) on 06/23/2021 1:38:00 PM Referred By: Marilin Breen Confirmed By:IRINEO DAWSON MD
[2021-06-20 12:39] LABS: Hematocrit 51.6 % (37-47); Hemoglobin 17.6 g/dL (12.0-15.0); Mean Corp Hgb Conc 34.1 g/dL (32-36); Mean Corpuscular Hgb 30.6 pg (27.0-32.0); Mean Corpuscular Volume 89.7 fL (81-99); Mean Platelet Vol. 8.6 fl (6.2-12.0); Platelet Count 213 K/mm3 (150-450); RBC Distribution Width CV 12.9 % (11.6-14.6); RBC Distribution Width SD 42.2 fl (35.1-43.9); Red Blood Count 5.75 M/mm3 (4.2-5.4); White Blood Count 7.8 K/mm3 (4.4-11.0)
[2021-06-20 12:50] LABS: Anion Gap 5 (5-15); BUN 22 mg/dL (7-18); BUN/Creat Ratio 21.4 RATIO (10-20); Calcium,Total 9.3 mg/dL (8.5-10.1); Chloride 112 mmol/L (98-107); Creatinine, Serum 1.03 mg/dL (0.55-1.02); EST Glomerular Filtration Rate 55 mL/min (>60); Est Glom Filt Rate - Afr Amer 67 mL/min (>60); Estimated Creatinine Clearance 37.84 ml/min; Glucose 95 mg/dL (74-106); Potassium 3.3 mmol/L (3.5-5.1); Sodium Level 143 mmol/L (136-145)
[2021-06-20] MEDS: Lactated Ringers 1,000 ML 15 ML IV (13:30)
[2021-06-20] MEDS: Cefazolin 2 GM in 0.9% Normal Saline 100 ML IV (13:39)
--- NOTE | 2021-06-20 13:43 | PCM.DC ---
Discharge Instructions Diet Discharge Diet: No restrictions Activity Discharge Activity: Return to Normal Activity Dressing / Incision Call your doctor if your incision/area has: Continuous Slow Oozing, Increased Pain/ Swelling and Foul Smelling Discharge Call your doctor if you observe: Fever of 101 or Higher, Inability to urinate and Inability to have a bowel movement Follow Up Care Please Follow Up With: Marilin Breen MD When: call office for appt Test Results: Test results from this visit will be discussed in further detail at your follow-up appointment, if applicable. Discharge Plan Admission Attending Provider: Marilin Breen Primary Care Provider: Polo Fuentes Discharge Orders/Prescriptions Prescriptions: Continued cholecalciferol (vitamin D3) 1,000 UNIT tablet 2,000 unit PO DAILY RF: 0 amlodipine 5 MG tablet 5 mg PO DAILY RF: 0 pravastatin 40 MG tablet 40 mg PO QHS RF: 0 vitamins A,C,K-paeo-enihpx 1 EACH capsule 1 tab PO BID RF: 0 pediatric multivit no.36-iron 10 MG tablet,chewable 1 tab PO DAILY RF: 0 Referrals / Follow Up: Polo Fuentes MD [Primary Care Provider] - Disposition Disposition (needs filled in before D/C Order can be placed): Home, Self Care
--- NOTE | 2021-06-20 13:59 | PCM.OPRPT ---
Problems Associated Problem List Diagnoses (1) Other urethral stricture, female: (2) Mixed incontinence: Report of Operation Date of Procedure: 06/20/21 Pre-Operative Diagnosis: Urethral stricture, mixed urinary incontinence Post-Operative Diagnosis: Same Surgery/Procedure Performed:: Urethral dilation, cystoscopy Surgeon: Marilin Breen Type of Anesthesia: MAC Specimen's removed: None Description of Procedure: The patient is a 75-year-old female who was unable to undergo a cystoscopy in the office secondary to urethral stricture. She agreed to proceed with urethral dilation and cystoscopy under anesthesia. Informed consent was obtained. The patient was taken to the operating room and placed on the operating room table. Anesthesia monitored the head, neck, airway, IV access and vital signs throughout the case. Once anesthesia was appropriate ministered, the patient was placed into dorsal lithotomy position was prepped and draped in usual sterile fashion. The urethral sounds were introduced through the urethra sequentially starting with 16 [place] and ending with 28 [place]. The cystoscope was easily inserted through the urethra at this point, into the urinary bladder. The bladder mucosa was visualized in its entirety and found to be without evidence of mass, erythema, ulceration or foreign body. The patient's bladder was then emptied and the case was terminated. The patient was awakened and taken to the recovery room in good condition. There were no complications during this procedure. Grafts/Implants Used: None Complications None Admit VTE Documentation VTE Present on Admission: Yes VTE Mechan Device Prophylaxis: SCD's VTE Pharm Prophylaxis ordered?: No
== END 2021-06-20 23:59 | disposition home or self-care (01) ==
LOC: SDC 11:20 → AC 11:43
PROVIDERS: PCP Family Medicine; Referring Provider Urology; Visit Provider Urology
PROC: 0T7D8ZZ Dilation of Urethra, Via Natural or Artificial Opening Endoscopic (ICD-10-PCS; CPT 52281; principal; 2021-06-20 13:05)
DX: N35.92 Unspecified urethral stricture, female (principal); C90.00 Multiple myeloma not having achieved remission; N39.46 Mixed incontinence; I10 Essential (primary) hypertension; R35.0 Frequency of micturition; N28.89 Other specified disorders of kidney and ureter; N28.9 Disorder of kidney and ureter, unspecified; M81.0 Age-related osteoporosis without current pathological fracture
CPT/HCPCS: 52281; 00910; 80048; 85027; 87426; 93005; C9803; J2405

== ENCOUNTER 2021-06-28 10:44 | Outpatient (CLI) | payer MEDICARE, SELFPAY ==
--- NOTE | 2021-06-28 10:46 | BD_ITS ---
STUDY: DUAL ENERGY X-RAY ABSORPTIOMETRY / DXA REASON FOR EXAM: Female, 75 years old. SCREENING TECHNIQUE: Bone Mineral Density (BMD) measurements of lumbar spine and bilateral hips were obtained. COMPARISON: Comparison is made with prior study dated 05/01/2017. FINDINGS: Lumbar Spine (L1-L4): g/cm2 (0.945) / T-score (-0.9) / Z-score (1.6) Findings are suggestive of normal bone density with a low fracture risk. Left Femur Total: g/cm2 (0.769) / T-score (-1.4) / Z-score (0.5) Left Femoral Neck: g/cm2 (0.574) / T-score (-2.5) / Z-score (-0.3) Right Femur Total: g/cm2 (0.771) / T-score (-1.4) / Z-score (0.5) Right Femoral Neck: g/cm2 (0.560) / T-score (-2.6) / Z-score (-0.4) The T-Scores on the most recent prior examination were: Lumbar Spine (L1-L4): There has been worsening of bone density since the previous examination. Left Femur Total: which represents a worsening of 3%. Right Femur Total: which represents an improvement of 1.4%. BD/Dexa Bone Density Study IMPRESSION: The patient is considered osteoporotic as outlined below according to World Alan Organization (WHO) criteria with a high fracture risk. There has been worsening of bone density since the previous examination. Reference Information: The T-score is the number of standard deviations above or below the standard which is normal for young adults at their peak bone mineral density. The World Health Organization (WHO) interprets the T-scores as follows: Above -1 Normal bone density Between -1 and -2.5 Osteopenia Equal to / or below -2.5 Osteoporosis As a practical clinical guideline, osteopenia may be graded as follows: Mild -1 through -1.5 Moderate -1.6 through -2.0 Severe -2.1 through -2.4 The Z-score is the number of standard deviations above or below age-matched controls. A Z-score of less than -1.5 would be considered abnormal. References: 1. NIH Osteoporosis and Related Bone Diseases www osteo.org 2. International Society for Clinical Densitometry www iscd.org 3. National Osteoporosis Foundation www nof.org Electronically Signed: Amandeep Porter MD at 7:54 EDT ,
== END 2021-06-28 23:59 | disposition home or self-care (01) ==
LOC: OPBD 10:45
PROVIDERS: PCP Family Medicine; Visit Provider Internal Medicine Medical Oncology
DX: M85.89 Other specified disorders of bone density and structure, multiple sites (principal); Z13.820 Encounter for screening for osteoporosis
CPT/HCPCS: 77080

== ENCOUNTER → 2021-10-17 | Outpatient (CLI) | payer MEDICARE, SELFPAY ==
--- NOTE | 2021-10-17 08:39 | BI_ITS ---
MAMMOGRAPHY - BILATERAL SCREENING REASON FOR EXAM: Female, 76 years old. Routine annual screening examination. PERTINENT HISTORY: Aunts with breast cancer. TECHNIQUE: Digital bilateral breast waqas (3D mammographic acquisition) in the CC and MLO projections. 2-D mediolateral oblique (MLO) and craniocaudad (CC) views of both breasts were obtained. CAD: Full Field Digital Mammography with Computer Added Detection was performed. COMPARISON: Comparison is made with prior study dated 10/13/2020 and 10/02/2019. FINDINGS: Breast Composition: There are scattered areas of fibroglandular density. There are no dominant masses or suspicious calcifications. Stable small right axillary lymph node. No other significant abnormalities are identified. There has been no significant change since the prior study. BI/SCRN MAMM (CAD)W/WAQAS BILAT IMPRESSION: Stable bilateral screening mammogram. Yearly follow-up mammogram recommended. (A) ASSESSMENT CATEGORY: BIRADS Category 2: Benign. A letter regarding these results will be sent to the patient by the facility within 30 days. Approximately 10% of breast cancers are not detected by mammography. A normal mammogram should not delay biopsy of a clinically suspicious abnormality. [id number] Electronically Signed: Amandeep Porter MD at 9:33 EDT ,
== END | disposition home or self-care (01) ==
LOC: OPBI 08:37
PROVIDERS: PCP Family Medicine; Visit Provider Family Medicine
DX: Z12.31 Encounter for screening mammogram for malignant neoplasm of breast (principal); Z80.3 Family history of malignant neoplasm of breast
CPT/HCPCS: 77063; 77067

== ENCOUNTER → 2021-10-28 | Outpatient (CLI) | payer MEDICARE, SELFPAY ==
[2021-10-28 09:59] LABS: Anion Gap 4 (5-15); BUN 25 mg/dL (7-18); BUN/Creat Ratio 26.3 RATIO (10-20); Calcium,Total 8.7 mg/dL (8.5-10.1); Chloride 108 mmol/L (98-107); Cholesterol 174 mg/dL (200); Creatinine, Serum 0.95 mg/dL (0.55-1.02); EST Glomerular Filtration Rate 60 mL/min (>60); Est Glom Filt Rate - Afr Amer 73 mL/min (>60); Glucose 102 mg/dL (74-106); High Density Lipoprotein 63 mg/dL; Potassium 3.7 mmol/L (3.5-5.1); Sodium Level 141 mmol/L (136-145); Triglycerides 208 mg/dL; Very Low Density Lipoprotein 42 mg/dL (5-40)
== END | disposition home or self-care (01) ==
LOC: LAB 08:53
PROVIDERS: PCP Family Medicine; Referring Provider Family Medicine; Visit Provider Family Medicine
DX: I10 Essential (primary) hypertension (principal)
CPT/HCPCS: 36415; 80048; 80061

== ENCOUNTER → 2021-12-05 | Outpatient (CLI) | payer MEDICARE, SELFPAY ==
[2021-12-05] VITALS (8 sets, daily range): BP systolic 131–184; BP diastolic 63–109; PULSE 67–89; RESP 13–75; TEMP 36.7; O2SAT 23–100; BMI 25.8
--- NOTE | 2021-12-05 | BMB_PTH ---
PATIENT: FRIEDA ALLEN LOC: CT U#:[id number] AGE/SX: 76/F ROOM: RE12/05/[address]: RICKY Smith : 1945 BED: DIS: 12/05/2021 SPEC #: [id number] RECD: 12/05/21 11:17 STATUS: JASWINDER REQ #: [id number] RAMA: 12/05/21 00:[address]: Nitin Christine DEPT: BONE MARROW RECD BY: Radha Campbell ENTERED: 12/05/21 11:18 SP TYPE: BMB OTHR DR: MD Crystal Carrion NP-C Tissues: A - Bone marrow, NOS B - Bone marrow, NOS C - Bone marrow, NOS Procedures: Decalcification bone/plaque Bone Marrow Aspiration Special Stain Group II Amyloid Stain (control) Bone Marrow Core Biopsy Iron Stain Bone Marrow Comments: @ Ordering doctor for DEC edited from LORELEI to DR.JPRAH Munoz by NICHOLE at 12/05/21 135Sean @ Ordering doctor for BMA edited from LORELEI to DR.JPRAH Munoz by NICHOLE at 12/05/21 1359 @ Ordering doctor for BMCB edited from LORELEI to DR.JPRAH Tammy VARELA at 12/05/21 1359 @ Ordering doctor for FEBM edited from LORELEI to DR.JPRAH Tammy VARELA at 12/05/21 1359 @ Submitting doctor edited from LORELEI to DR.JPRAH Tammy VARELA at 12/05/21 4660 HEADER OPERATION: Bone marrow biopsy and aspiration PRE-OP DIAGNOSIS: History of multiple myeloma, increased serum light chain TISSUE SUBMITTED: A - Core, B - Clot, C - Smears, and send outs (flow, cytogenetics and MM FISH) BONE MARROW DIAGNOSIS Bone marrow core, clot and aspirate smears: A few plasma cells noted with lambda monoclonality, consistent with involvement by residual plasma cell dyscrasia. See bone marrow study and comment. SJ:yolette 12/07/2021 COMMENT Immunohistochemistry ([id number]) supports the above diagnosis. Flow cytometry study from [facility] shows plasma cell neoplasms (percentage of abnormal cells, 0.5%). Correlation with clinical findings and appropriate follow up are necessary. Please make reference to previous specimen ([id number]) bone marrow biopsy, clot and aspiration with diagnosis of ?plasma cell dyscrasia, consistent with multiple myeloma.? Case has been reviewed in consultation with Dr. Landaverde who concurs with the above diagnosis. IDC:JIMMIE BONE MARROW STUDY Slides are reviewed. CBC DATE: 12/05/21 WBC 7.1; RBC 5.43; HGB 16.3; HCT 49.2; MCV 90.6; RDW 12.5; PLTS 213,000 SEGS 68.9%; LYMPHS 22.4%; MONOS 5.8%; EOS 2.0%; BASOS 0.6% PERIPHERAL SMEAR: Submitted. RBC: Normocytic and normochromic. Mild polycythemia. WBC: Unremarkable. The WBC count is compatible to as reported above. PLTS: Adequate. BONE MARROW ASPIRATE DIFFERENTIAL: 200 cell count. Blasts % (normal 0-2): 0 Promyelocytes % (normal 1-5): 1 Myelocytes and metamyelocytes % (normal 17-41): 22 Bands and Segs % (normal 15-32): 46 Eos % (normal 1-6): 1 Basos % (normal 0-1): 0 Monocytes % (normal 0-4): 3 Erythroid Precursors % (normal 17-35): 18 Lymphocytes % (normal 7-13): 8 Plasma Cells % (normal 0-2): 1 ASPIRATE FINDINGS: Site: Not specified Aspicular, Cellular M/E ratio: _ (Normal 1.5-4.0) Megakaryocytes: Present and normal morphology. Erythropoiesis: Normoblastic. Granulopoiesis: Progressive and unremarkable. Comment: Significant increase of plasma cells are not seen. Hemodilution is noted. CORE BIOPSY FINDINGS: Site: Not specified Adequacy: Adequate Cellularity: 40% M/E ratio: Within normal limits. Megakaryocytes: Present and adequate in number. Bony trabeculae: Unremarkable. Granulomas: Absent. Lymphoid aggregate: Absent. Atypical infiltrate: See comment. Comment: Immunohistochemistry ([id number]) shows a few plasma cells, ~2%, with focal clustering with lambda monoclonality. ASPIRATE CLOT FINDINGS: Site: Not specified Marrow particles: A few Cellularity: 40% M/E ratio: Within normal limits. Megakaryocytes: Present and adequate in number. Granulomas: Absent. Lymphoid aggregates: Absent. Atypical infiltrates: See comment. Comment: Immunohistochemistry ([id number]) shows a few plasma cells with lambda monoclonality. SPECIAL STAINS WITH MATCHED CONTROLS: Iron: Absent Reticulin: No significant increase of reticulin fibers is noted. PAS: Highlights myeloid cells and megakaryocytes. BONE MARROW GROSS A - Received is a container labeled with the patient's name and designated bone marrow. The specimen consists of an elongated piece of bone measuring 1.3 cm in length and 0.1 cm in diameter. The specimen is totally submitted in one cassette after decalcification. B - Received labeled with the patient's name and designated bone marrow is a specimen that consists of approximately 6 ml of bloody fluid that on filtration yields multiple minute fragments of blood clots measuring in aggregate 3 x 2.5 x 0.1 cm. The specimen is totally submitted in one cassette. C - Also received are 16 unstained and 1 peripheral stained slides. The unstained slides are submitted for appropriate staining. Also received are two green top tubes which are sent to our reference lab for flow, cytogenetics and MM FISH. / SJ:rg 12/05/2021 TC:5 CPT: 56467, 38630, 09256 x2, 53056 x4, 58820 ADDENDUM ADDENDUM ADDENDUM ADDENDUM ADDENDUM ADDENDUM ADDENDUM ADDENDUM ADDENDUM ADDENDUM ADDENDUM ADDENDUM ADDENDUM ADDENDUM ADDENDUM ADDENDUM ADDENDUM ADDENDUM ADDENDUM 12/20/2021 09:04 ADDENDUM 12/23/2021 11:58 ADDENDUM 12/20/2021 09:04 ADDENDUM 12/20/2021 09:04 ADDENDUM 12/20/2021 09:04 ADDENDUM 12/20/2021 09:04 CYTOGENETICS REPORT FROM [facility] INTERPRETATION: A normal female chromosome complement was observed in twenty metaphases analyzed. Karyotype: 46,XX[20] FLUORESCENCE IN-SITU HYBRIDIZATION (FISH) FROM [facility] INTERPRETATION: 1. No evidence of IGH-MAF [translocation t(14;16)] gene rearrangement. 2. No evidence of RB1 monosomy (13q14 deletion). 3. No evidence of CCND1-IGH [translocation t(11;14)] gene rearrangement, and no evidence for trisomy 11 or gain of 11q. 4. No evidence of p53 (17p13) deletion or amplification. 5. No evidence of FGFR3-IGH [translocation t(4;14)] gene rearrangement. 6. Negative for 1q21/CKS1B gain. Please see complete report in e-chart or EMR [place] Red stain for amyloid was done on bone marrow core biopsy at the request of Dr. Christine. The result is as follows: [place] Red stain for amyloid is negative. SJ:yolette 12/23/2021 Case has been reviewed in consultation with Dr. Landaverde who concurs with the above diagnosis. IDC:[email or web address]
--- NOTE | 2021-12-05 | BMB_PTH ---
PATIENT: FRIEDA ALLEN LOC: CT U#:[id number] AGE/SX: 76/F ROOM: RE12/05/[address]: RICKY Smith : 1945 BED: DIS: 12/05/2021 SPEC #: [id number] RECD: 12/05/21 11:17 STATUS: JASWINDER REQ #: [id number] RAMA: 12/05/21 00:[address]: Nitin Christine DEPT: BONE MARROW RECD BY: Radha Campbell ENTERED: 12/05/21 11:18 SP TYPE: BMB OTHR DR: MD Crystal Carrion NP-C Tissues: A - Bone marrow, NOS B - Bone marrow, NOS C - Bone marrow, NOS Procedures: Decalcification bone/plaque Bone Marrow Aspiration Special Stain Group II Amyloid Stain (control) Bone Marrow Core Biopsy Iron Stain Bone Marrow Comments: @ Ordering doctor for DEC edited from LORELEI to DR.JPRAH Munoz by NICHOLE at 12/05/21 135Sean @ Ordering doctor for BMA edited from LORELEI to DR.JPRAH Munoz by NICHOLE at 12/05/21 1359 @ Ordering doctor for BMCB edited from LORELEI to DR.JPRAH Tammy VARELA at 12/05/21 1359 @ Ordering doctor for FEBM edited from LORELEI to DR.JPRAH Tammy VARELA at 12/05/21 1359 @ Submitting doctor edited from LORELEI to DR.JPRAH Tammy VARELA at 12/05/21 5117 HEADER OPERATION: Bone marrow biopsy and aspiration PRE-OP DIAGNOSIS: History of multiple myeloma, increased serum light chain TISSUE SUBMITTED: A - Core, B - Clot, C - Smears, and send outs (flow, cytogenetics and MM FISH) BONE MARROW DIAGNOSIS Bone marrow core, clot and aspirate smears: A few plasma cells noted with lambda monoclonality, consistent with involvement by residual plasma cell dyscrasia. See bone marrow study and comment. SJ:yolette 12/07/2021 COMMENT Immunohistochemistry ([id number]) supports the above diagnosis. Flow cytometry study from [facility] shows plasma cell neoplasms (percentage of abnormal cells, 0.5%). Correlation with clinical findings and appropriate follow up are necessary. Please make reference to previous specimen ([id number]) bone marrow biopsy, clot and aspiration with diagnosis of ?plasma cell dyscrasia, consistent with multiple myeloma.? Case has been reviewed in consultation with Dr. Landaverde who concurs with the above diagnosis. IDC:JIMMIE BONE MARROW STUDY Slides are reviewed. CBC DATE: 12/05/21 WBC 7.1; RBC 5.43; HGB 16.3; HCT 49.2; MCV 90.6; RDW 12.5; PLTS 213,000 SEGS 68.9%; LYMPHS 22.4%; MONOS 5.8%; EOS 2.0%; BASOS 0.6% PERIPHERAL SMEAR: Submitted. RBC: Normocytic and normochromic. Mild polycythemia. WBC: Unremarkable. The WBC count is compatible to as reported above. PLTS: Adequate. BONE MARROW ASPIRATE DIFFERENTIAL: 200 cell count. Blasts % (normal 0-2): 0 Promyelocytes % (normal 1-5): 1 Myelocytes and metamyelocytes % (normal 17-41): 22 Bands and Segs % (normal 15-32): 46 Eos % (normal 1-6): 1 Basos % (normal 0-1): 0 Monocytes % (normal 0-4): 3 Erythroid Precursors % (normal 17-35): 18 Lymphocytes % (normal 7-13): 8 Plasma Cells % (normal 0-2): 1 ASPIRATE FINDINGS: Site: Not specified Aspicular, Cellular M/E ratio: _ (Normal 1.5-4.0) Megakaryocytes: Present and normal morphology. Erythropoiesis: Normoblastic. Granulopoiesis: Progressive and unremarkable. Comment: Significant increase of plasma cells are not seen. Hemodilution is noted. CORE BIOPSY FINDINGS: Site: Not specified Adequacy: Adequate Cellularity: 40% M/E ratio: Within normal limits. Megakaryocytes: Present and adequate in number. Bony trabeculae: Unremarkable. Granulomas: Absent. Lymphoid aggregate: Absent. Atypical infiltrate: See comment. Comment: Immunohistochemistry ([id number]) shows a few plasma cells, ~2%, with focal clustering with lambda monoclonality. ASPIRATE CLOT FINDINGS: Site: Not specified Marrow particles: A few Cellularity: 40% M/E ratio: Within normal limits. Megakaryocytes: Present and adequate in number. Granulomas: Absent. Lymphoid aggregates: Absent. Atypical infiltrates: See comment. Comment: Immunohistochemistry ([id number]) shows a few plasma cells with lambda monoclonality. SPECIAL STAINS WITH MATCHED CONTROLS: Iron: Absent Reticulin: No significant increase of reticulin fibers is noted. PAS: Highlights myeloid cells and megakaryocytes. BONE MARROW GROSS A - Received is a container labeled with the patient's name and designated bone marrow. The specimen consists of an elongated piece of bone measuring 1.3 cm in length and 0.1 cm in diameter. The specimen is totally submitted in one cassette after decalcification. B - Received labeled with the patient's name and designated bone marrow is a specimen that consists of approximately 6 ml of bloody fluid that on filtration yields multiple minute fragments of blood clots measuring in aggregate 3 x 2.5 x 0.1 cm. The specimen is totally submitted in one cassette. C - Also received are 16 unstained and 1 peripheral stained slides. The unstained slides are submitted for appropriate staining. Also received are two green top tubes which are sent to our reference lab for flow, cytogenetics and MM FISH. / SJ:rg 12/05/2021 TC:5 CPT: 24929, 65771, 32843 x2, 64548 x4, 13845 ADDENDUM ADDENDUM ADDENDUM ADDENDUM ADDENDUM ADDENDUM ADDENDUM ADDENDUM ADDENDUM ADDENDUM ADDENDUM ADDENDUM ADDENDUM ADDENDUM ADDENDUM ADDENDUM ADDENDUM ADDENDUM ADDENDUM 12/20/2021 09:04 ADDENDUM 12/20/2021 09:04 ADDENDUM 12/20/2021 09:04 ADDENDUM 12/23/2021 10:20 ADDENDUM 12/20/2021 09:04 ADDENDUM 12/20/2021 09:04 CYTOGENETICS REPORT FROM [facility] INTERPRETATION: A normal female chromosome complement was observed in twenty metaphases analyzed. Karyotype: 46,XX[20] FLUORESCENCE IN-SITU HYBRIDIZATION (FISH) FROM [facility] INTERPRETATION: 1. No evidence of IGH-MAF [translocation t(14;16)] gene rearrangement. 2. No evidence of RB1 monosomy (13q14 deletion). 3. No evidence of CCND1-IGH [translocation t(11;14)] gene rearrangement, and no evidence for trisomy 11 or gain of 11q. 4. No evidence of p53 (17p13) deletion or amplification. 5. No evidence of FGFR3-IGH [translocation t(4;14)] gene rearrangement. 6. Negative for 1q21/CKS1B gain. Please see complete report in e-chart or EMR [place] Red stain for amyloid was done on bone marrow core biopsy at the request of Dr. Christine. The result is as follows: [place] Red stain for amyloid is negative. ANA LILIA:yolette 12/23/2021 Case has been reviewed in consultation with Dr. Nova who concurs with the above diagnosis. IDC:ANA LILIA
--- NOTE | 2021-12-05 | IMM_PTH ---
PATIENT: FRIEDA ALLEN LOC: CT U#:[id number] AGE/SX: 76/F ROOM: RE12/05/[address]: RICKY Smith : 1945 BED: DIS: 12/05/2021 SPEC #: [id number] RECD: 12/06/21 12:42 STATUS: JASWINDER REQ #: [id number] RAMA: 12/05/21 00:[address]: Nitin Christine DEPT: IMMUNOHISTOCHEMISTRY RECD BY: Mattie Bocanegra ENTERED: 12/06/21 12:44 SP TYPE: IMMUNO OTHR DR: MD Crystal Carrion NP-C Tissues: A - Bone marrow of iliac crest B - Bone marrow of iliac crest Procedures: CD138 (initial) KAPPA (add) LAMBDA (add) PHYSICIAN & INSTITUTION [address] [address] SPECIMEN INFORMATION: Tissue Source: A ? Bone marrow core, B ? Bone marrow clot Clinical Info: Multiple myeloma, increased serum light chain Specimen Number: [id number] A & B CPT code: 76947 x2, 99429 x4 METHODOLOGY: Deparaffinized sections of prefer/formalin-fixed tissue or PAP/DQ stained slides are incubated with monoclonal/polyclonal antibodies/oligonucleotide probes. Localization is made via biotin free immunoperoxidase method. Appropriate controls are performed and reacted as expected. Results on target cell population are indicated in the following table: RESULTS: ANTIBODY / CLONE RESULT Block A CD138 (B-A38) positive [place] (polyclonal) negative Lambda (polyclonal) positive Block B CD138 (B-A38) positive [place] (polyclonal) negative Lambda (polyclonal) positive These tests were developed and their performance characteristics determined by [facility]. They may not have been cleared or approved by the U.S. Food and Drug Administration. The FDA has determined that such clearance or approval is not necessary. The above immunohistochemical/dualISH markers are ordered and reviewed by the Pathologist. INTERPRETATION: A. Bone marrow, core: A few plasma cells noted with lambda monoclonality, consistent with involvement by residual plasma cell dyscrasia. B. Bone marrow clot: A few plasma cells noted with lambda monoclonality, consistent with involvement by residual plasma cell dyscrasia. SJ:yolette 12/07/2021 Case has been reviewed in consultation with Dr. Landaverde who concurs with the above diagnosis. IDC:[id number]
[2021-12-05 09:27] LABS: Absolute Lymphocyte Count 1.58 X10^3/uL (0.83-4.51); Absolute Neutrophil Count 4.9 X10^3/uL (2.0-7.7); Basophil# 0.04 X10^3/uL; Basophil% 0.6 % (0-1); Eosinophil# 0.14 X10^3/uL; Hematocrit 49.2 % (37-47); Hemoglobin 16.3 g/dL (12.0-15.0); Lymphocyte # 1.58 X10^3/ul (0.83-4.51); Lymphocyte % 22.4 % (19-41); Mean Corp Hgb Conc 33.1 g/dL (32-36); Mean Corpuscular Volume 90.6 fL (81-99); Monocyte# 0.41 X10^3/uL; Monocyte% 5.8 % (0-10); NRBC Flagged by Analyzer 0 % (0-5); Neutrophil # 4.87 X10^3/uL (2.7-7.7); Neutrophil % 68.9 % (47-70); Platelet Count 213 K/mm3 (150-450); RBC Distribution Width CV 12.5 % (11.6-14.6); RBC Distribution Width SD 41.5 fl (35.1-43.9); Red Blood Count 5.43 M/mm3 (4.2-5.4); White Blood Count 7.1 K/mm3 (4.4-11.0)
[2021-12-05 09:37] LABS: Prothrombin Time (Protime)PT. 12.6 SECONDS (11.7-14.9)
--- NOTE | 2021-12-05 10:35 | CT_ITS ---
PROCEDURE: CT GUIDED BONE marrow biopsy. DATE: 12/05/2021 INDICATION: Female, 76 years old. Multiple myeloma. PHYSICIAN: Amandeep Porter M.D. RADIATION DOSAGE (If Supplied By Facility): CTDIvol = ( 15 ) mGy, DLP = ( 267.9 ) mGycm. Individualized dose optimization techniques were utilized. PROCEDURE: The risks, benefits, and alternatives to the procedure were explained to the patient. The specific risk of hemorrhage requiring further treatment or intervention was detailed and accepted. Follow-up instructions were discussed with the patient as well. Written informed consent was obtained. The patient was brought into the CT suite and placed in the prone. . An appropriate entry site was identified. The overlying skin was prepped and draped in the usual sterile fashion. 1% lidocaine was administered subcutaneously for local anesthesia. Conscious sedation was performed. The patient received 1 mg of VERSED and 50 mcg of FENTANYL intravenously. Conscious sedation was started on 10:36 AM and terminated at 10:58 AM. The patient was independently monitored by the department nurse. Under CT guidance, a bone marrow biopsy and aspirate of the posterior right iliac bone were performed utilizing an 18-gauge bone marrow biopsy needle system. The specimens were then placed in the appropriate fluid and transported to the laboratory for analysis. Hemostasis was obtained. The patient tolerated the procedure well without immediate complications. CT/Biopsy/Inj or Needle Placement IMPRESSION: Successful CT guided bone marrow biopsy and aspirate of the posterior right iliac bone, as described above. The conscious sedation protocol was followed. Electronically Signed: Amandeep Porter MD at 12:06 EDT ,
[2021-12-05] MEDS: Midazolam 2 MG/2 ML Syringe IV (10:36)
[2021-12-05] MEDS: fentaNYL 100 MCG/2 ML Ampul IV (10:38)
[2021-12-05] MEDS: Lidocaine 2% (10 ml mdv) 10 ML Vial INFILT (10:40)
[2021-12-05 11:30] LABS: Bone Marrow Aspiraton SEE PATHOLOGY REPORT
== END | disposition home or self-care (01) ==
PROVIDERS: PCP Family Medicine; Referring Provider Nurse Practitioner Family; Visit Provider Nurse Practitioner Family
DX: C90.00 Multiple myeloma not having achieved remission (principal); D75.1 Secondary polycythemia; N18.2 Chronic kidney disease, stage 2 (mild); N28.89 Other specified disorders of kidney and ureter
CPT/HCPCS: 38222; 36415; 77012; 85025; 85610; 85730; 88305; 88311; 88313; 88341; 88342; 99156; J7050; A4216

== ENCOUNTER → 2022-01-03 | Outpatient (CLI) | payer MEDICARE, SELFPAY ==
--- NOTE | 2022-01-03 09:30 | ECHODONC_ITS ---
Reason For Study: Light Chain Disease Procedure This was a 2D Doppler, Color Flow transthoracic echocardiogram. Myocardial strain analysis was performed in this exam to aid in the assessment of cardiac function. Exam performed in department. Left Ventricle Normal LV size. Sigmoid septum. Left ventricular systolic function is normal. The estimated ejection fraction is 51 %. Stage 1 diastolic dysfunction. No regional wall motion abnormalities noted. Right Ventricle Normal RV size. Normal systolic function. Atria Normal left atrium. Normal right atrium. Mitral Valve Normal mitral valve. Tricuspid Valve Normal tricuspid valve. Mild tricuspid valve insufficiency. Aortic Valve Trisinus/trileaflet aortic valve. Pulmonic Valve The pulmonic valve is not well visualized. Great Vessels Normal aortic root. The pulmonary artery is normal size. Normal inferior vena cava. Pericardium/Pleural No pericardial effusion. MMode/2D Measurements & Calculations LVIDd: 3.9 cm IVSd: 1.2 cm Ao root diam: 3.1 cm LVIDs: 2.4 cm LVPWd: 0.99 cm LA dimension: 3.8 cm RVDd: 2.8 cm FS: 39.4 % LAV(MOD-bp): 36.5 ml LA A4 area: 14.3 cm2 RA A4 area: 11.4 cm2 LAV(MOD-bp) Indexed: 21.7 ml/m2 LAV(MOD-sp2): 35.3 ml LAV(MOD-sp4): 36.4 ml Time Measurements MV dec time: 0.28 sec Doppler Measurements & Calculations MV E max justyn: 75.8 cm/sec Lat Peak E' Justyn: 7.3 cm/sec Med Peak E' Justyn: 6.3 cm/sec MV A max justyn: 111.7 cm/sec E/E' lat: 10.5 E/E' med: 12.0 MV E/A: 0.68 MV V2 max: 120.4 cm/sec MV P1/2t max justyn: 106.1 cm/sec Ao V2 max: 124.9 cm/sec MV max P.8 mmHg MV P1/2t: 101.4 msec Ao max P.2 mmHg MV V2 mean: 65.0 cm/sec MV dec slope: 306.6 cm/sec2 MV mean P.0 mmHg MVA(P1/2t): 2.2 cm2 MV V2 VTI: 31.6 cm LV V1 max: 91.0 cm/sec PA V2 max: 91.3 cm/sec TR max justyn: 197.9 cm/sec LV V1 max P.3 mmHg PA V2 mean: 68.2 cm/sec TR max P.7 mmHg LV V1 mean P.8 mmHg LV V1 mean: 62.2 cm/sec LV V1 VTI: 22.1 cm ECHO/ONC Echo Complete Interpretation Summary Normal LV size. Left ventricular systolic function is normal. The estimated ejection fraction is 51 %. Stage 1 diastolic dysfunction. The global longitudinal strain is moderately abnormal. The global longitudinal strain = -15.8% (abnormal). Ordering Physician: Nitin Christine Referring Physician: Polo Fuentes Performed By: Henrry Gonzalez RCS
== END | disposition home or self-care (01) ==
PROVIDERS: PCP Family Medicine; Referring Provider Internal Medicine Medical Oncology; Visit Provider Internal Medicine Medical Oncology
DX: E85.81 Light chain (AL) amyloidosis (principal)
CPT/HCPCS: 93306; 93356

== ENCOUNTER → 2022-01-30 | Outpatient (CLI) | payer MEDICARE, SELFPAY ==
[2022-01-30 13:22] LABS: Anion Gap 7 (5-15); BUN 22 mg/dL (7-18); Calcium,Total 8.9 mg/dL (8.5-10.1); Chloride 104 mmol/L (98-107); Cholesterol 216 mg/dL (200); EST Glomerular Filtration Rate 57 mL/min (>60); Est Glom Filt Rate - Afr Amer 69 mL/min (>60); Glucose 90 mg/dL (74-106); High Density Lipoprotein 76 mg/dL; Potassium 3.8 mmol/L (3.5-5.1); Sodium Level 137 mmol/L (136-145); Triglycerides 350 mg/dL; Very Low Density Lipoprotein 70 mg/dL (5-40)
== END | disposition home or self-care (01) ==
LOC: MFPLAB 10:06
PROVIDERS: PCP Family Medicine; Visit Provider Family Medicine
DX: I10 Essential (primary) hypertension (principal)
CPT/HCPCS: 36415; 80048; 80061

== ENCOUNTER → 2022-03-06 | Outpatient (CLI) | payer MEDICARE, SELFPAY ==
[2022-03-06 10:40] LABS: AST(SGOT) 24 U/L (15-37); Alanine Aminotransfer ALT/SGPT 17 U/L (13-56); Albumin, Serum 3.6 g/dL (3.2-5.0); Alkaline Phosphatase 72 U/L (45-117); Anion Gap 6 (5-15); BUN 20 mg/dL (7-18); BUN/Creat Ratio 21.2 RATIO (10-20); Calcium,Total 8.8 mg/dL (8.5-10.1); Chloride 107 mmol/L (98-107); Creatinine, Serum 0.94 mg/dL (0.55-1.02); EST Glomerular Filtration Rate 61 mL/min (>60); Est Glom Filt Rate - Afr Amer 74 mL/min (>60); Globulin 3.6 g/dL (2.2-4.2); Glucose 96 mg/dL (74-106); LDH 212 U/L (84-246); Potassium 3.3 mmol/L (3.5-5.1); Protein, Total 7.2 g/dL (6.4-8.2); Sodium Level 138 mmol/L (136-145)
[2022-03-08 00:07] LABS: Albumin 3.6 g/dL (2.9-4.4); Alpha-1-Globulins 0.2 g/dL (0.0-0.4); Alpha-2-Globulins 0.8 g/dL (0.4-1.0); Free Kappa Light Chains 16.1 mg/L (3.3-19.4); Free Lambda Light Chains 2459.7 mg/L (5.7-26.3); Gamma Globulin 0.9 g/dL (0.4-1.8); Immunoglobulin A 196 mg/dL (64-422); Immunoglobulin G 880 mg/dL (586-1602); Immunoglobulin M 89 mg/dL (26-217); PROEL- TOTAL PROTEIN 6.6 g/dL (6.0-8.5)
== END | disposition home or self-care (01) ==
LOC: PAVLAB 09:33
PROVIDERS: PCP Family Medicine; Referring Provider Internal Medicine Medical Oncology; Visit Provider Internal Medicine Medical Oncology
DX: C90.02 Multiple myeloma in relapse (principal); D89.89 Other specified disorders involving the immune mechanism, not elsewhere classified
CPT/HCPCS: 80053; 82784; 83615; 83883; 84165; 86334

== ENCOUNTER 2022-06-26 07:20 | Outpatient (CLI) | payer MEDICARE, SELFPAY ==
[2022-06-26] VITALS (7 sets, daily range): BP systolic 123–160; BP diastolic 56–99; PULSE 74–92; RESP 15–18; TEMP 36.4–36.9; O2SAT 97–100; BMI 25.7
--- NOTE | 2022-06-26 | BMB_PTH ---
PATIENT: FRIEDA ALLEN LOC: CT U#:[id number] AGE/SX: 76/F ROOM: RE06/26/[address]: Dr. Nitin Christine MD : 1945 BED: DIS: 06/26/2022 SPEC #: [id number] RECD: 06/26/22 09:57 STATUS: JASWINDER REUriel #: [id number] RAMA: 06/26/22 00:[address]: Nitin Christine DEPT: BONE MARROW RECD BY: Alonzo Powell ENTERED: 06/26/22 09:57 SP TYPE: BMB OTHR DR: Dr. Polo Fuentes MD Tissues: A - Bone marrow, NOS B - Bone marrow, NOS C - Bone marrow, NOS Procedures: Decalcification bone/plaque Bone Marrow Aspiration Bone Marrow Core Biopsy Iron Stain Bone Marrow HEADER OPERATION: Bone marrow biopsy and aspiration PRE-OP DIAGNOSIS: History of multiple myeloma TISSUE SUBMITTED: A - Core, B - Clot, C - Smears, and send outs (flow, cytogenetics and FISH) BONE MARROW DIAGNOSIS Bone marrow biopsy, clot and aspiration: Lambda-restricted plasma cell neoplasm. See comment. AM:yolette 06/29/2022 COMMENT Sections of the bone marrow biopsy show approximately 5% of the bone marrow elements to be involved by an atypical plasma cell proliferation that on immunohistochemistry ([id number]) reveals this population to be lambda restricted. Sections of the bone marrow clot reveal rare fragments of bone marrow elements with no increased plasma cell population. Flow cytometry analysis reveals no significant immunophenotypic abnormality and the plasma cells are <1% in population. Cytogenetic studies are pending and will be reported as an addendum. Case has been reviewed in consultation with Dr. Nova who concurs with the above diagnosis. IDC:SJ BONE MARROW STUDY Slides are reviewed. CBC DATE: 11/26/2022 WBC 6.88; RBC _; HGB 5.4; HCT 51.1; MCV 93.9; RDW 41.0; PLTS 228,000 SEGS 4.46%; LYMPHS 1.76%; MONOS 0.4%; EOS 0.1%; BASOS 0% PERIPHERAL SMEAR: Submitted. RBC: Normochromic, normocytic WBC: Occasional reactive lymphocyte PLTS: Normomorphic BONE MARROW ASPIRATE DIFFERENTIAL: Markedly hemodilute and nonspicular. Trilineage hematopoiesis is present. ASPIRATE FINDINGS: Site: Not specified Aspicular Cellular Markedly hemodilute. Trilineage hematopoiesis is present. CORE BIOPSY FINDINGS: Site: Not specified Cellularity %: 30% M/E ratio: Within normal limits. Megakaryocytes: Adequate Bony trabeculae: Within normal limits. Granulomas: 0 Lymphoid aggregate(s): 0 Atypical infiltrate(s): Plasm cell neoplasm comprising approximately 5% of marrow elements. ASPIRATE CLOT FINDINGS: Site: Not specified Cellularity %: 40% M/E ratio: Within normal limits. Megakaryocytes: Adequate Granuloma(s): 0 Lymphoid aggregate(s): 0 Atypical infiltrate(s): 0 SPECIAL STAINS (with matched controls): Iron: Rare stainable iron noted. Reticulin: Within normal limits. PAS: Highlights myeloid elements and megakaryocytes. BONE MARROW GROSS A - Received is a container labeled with the patient's name and designated bone marrow. The specimen consists of a cylindrical fragment of nicole bone measuring 1.0 cm in length and 0.2 cm in diameter. The specimen is totally submitted in one cassette after decalcification. B - Received labeled with the patient's name and designated blood clot is a specimen that consists of approximately 7 ml of reddish-nicole blood clot that on filtration yields multiple irregular fragments of reddish-nicole soft tissue measuring in aggregate 2.5 x 2.0 x 0.2 cm. The specimen is totally submitted in one cassette. C - Also received are 18 unstained and 1 peripheral stained slides. The unstained slides are submitted for appropriate staining. Also received is one green top tube which is sent to our reference lab for flow, cytogenetics and FISH. / AM:yolette 06/26/2022 TC:0 CPT: 23291, 56663, 89861 x2, 33596 x3, 91176 ADDENDUM ADDENDUM ADDENDUM ADDENDUM ADDENDUM ADDENDUM ADDENDUM ADDENDUM ADDENDUM ADDENDUM ADDENDUM ADDENDUM ADDENDUM ADDENDUM 07/10/2022 10:18 ADDENDUM 07/10/2022 10:18 ADDENDUM 07/10/2022 10:18 ADDENDUM 07/10/2022 10:18 ADDENDUM 07/10/2022 10:18 CYTOGENETICS REPORT FROM [facility] CYTOGENETIC RESULT: 46,XX[20] INTERPRETATION: Normal female karyotype was observed in twenty metaphases analyzed. MULTIPLE MYELOMA FISH PANEL FROM [facility] FISH RESULT: Normal multiple myeloma panel INTERPRETATION: Multiple myeloma panel normal Please see complete report in e-chart or EMR
--- NOTE | 2022-06-26 | IMM_PTH ---
PATIENT: FRIEDA ALLEN LOC: CT U#:[id number] AGE/SX: 76/F ROOM: RE06/26/[address]: Dr. Nitin Christine MD : 1945 BED: DIS: 06/26/2022 SPEC #: [id number] RECD: 06/27/22 13:43 STATUS: SOUBailey REQ #: [id number] RAMA: 06/26/22 00:[address]: Nitin Christine DEPT: IMMUNOHISTOCHEMISTRY RECD BY: Mattie Bocanegra ENTERED: 06/27/22 13:46 SP TYPE: IMMUNO OTHR DR: Dr. Polo Fuentes MD Tissues: A - Bone marrow of iliac crest B - Bone marrow of iliac crest Procedures: CD138 (add) CD20 (add) CD3 (add) CD45 (add) CD5 (add) CD79A (add) KAPPA (add) LAMBDA (add) Pankeratin (initial) PHYSICIAN & INSTITUTION [place] [address] SPECIMEN INFORMATION: Tissue Source: A ? Bone marrow core, B ? Bone marrow clot Clinical Info: History of multiple myeloma Specimen Number: [id number] A & B CPT code: 54541 x2, 91311 x16 METHODOLOGY: Deparaffinized sections of prefer/formalin-fixed tissue or PAP/DQ stained slides are incubated with monoclonal/polyclonal antibodies/oligonucleotide probes. Localization is made via biotin free immunoperoxidase method. Appropriate controls are performed and reacted as expected. Results on target cell population are indicated in the following table: RESULTS: ANTIBODY / CLONE RESULT Block A AE1-3 (AE1/AE3/PCK26) negative CD3 (PS1) negative CD5 (SP10) negative CD20 (L26) negative CD45 (RP2/18) negative CD79a (11E3) negative CD138 (B-A38) positive [place] (polyclonal) negative Lambda (polyclonal) positive Block B AE1-3 (AE1/AE3/PCK26) negative CD3 (PS1) negative CD5 (SP10) negative CD20 (L26) negative CD45 (RP2/18) negative CD79a (11E3) negative CD138 (B-A38) negative [place] (polyclonal) negative Lambda (polyclonal) negative These tests were developed and their performance characteristics determined by [facility]. They may not have been cleared or approved by the U.S. Food and Drug Administration. The FDA has determined that such clearance or approval is not necessary. The above immunohistochemical/dualISH markers are ordered and reviewed by the Pathologist. INTERPRETATION: A. Bone marrow core: Lambda restricted plasma cell neoplasm. B. Bone marrow clot: No evidence of malignancy. AM:yolette 06/29/2022 Case has been reviewed in consultation with Dr. Nova who concurs with the above diagnosis. IDC:[email or web address]
--- NOTE | 2022-06-26 07:30 | CT_ITS ---
PROCEDURE: CT GUIDED bone marrow biopsy and aspiration of the right iliac bone. DATE: June 26, 2022. INDICATION: Female, 76 years old. History of multiple myeloma. PHYSICIAN: Amandeep Porter M.D. RADIATION DOSAGE (If Supplied By Facility): CTDIvol = ( 15.3 ) mGy, DLP = ( 233.05 ) mGycm. Individualized dose optimization techniques were utilized. PROCEDURE: The risks, benefits, and alternatives to the procedure were explained to the patient. The specific risk of hemorrhage requiring further treatment or intervention was detailed and accepted. Follow-up instructions were discussed with the patient as well. Written informed consent was obtained. The patient was brought into the CT suite and placed in the prone position. . An appropriate entry site was identified overlying the posterior right iliac bone. The overlying skin was prepped and draped in the usual sterile fashion. 1% lidocaine was administered subcutaneously for local anesthesia.. Conscious sedation was performed. The patient received 2 mg of Versed and 50 mcg of fentanyl intravenously. Conscious sedation was started at 8:52 AM and terminated at 9:10 AM. The patient was independently monitored by the department nurse. Under CT guidance, a bone marrow biopsy and bone marrow aspirates of the posterior right iliac bone were performed utilizing an 11-gauge bone marrow biopsy needle system. The specimens were then placed in the appropriate fluid and transported to the laboratory for analysis. Hemostasis was obtained. The patient tolerated the procedure well without immediate complications. CT/Biopsy/Inj or Needle Placement IMPRESSION: Successful CT guided bone marrow biopsy and aspirate of the posterior right iliac bone, as described above. Conscious sedation protocol was followed. Electronically Signed: Amandeep Porter MD at 9:45 EDT ,
[2022-06-26 07:38] LABS: Absolute Lymphocyte Count 1.76 X10^3/uL (0.83-4.51); Absolute Neutrophil Count 4.5 X10^3/uL (2.0-7.7); Basophil# 0.05 X10^3/uL; Basophil% 0.7 % (0-1); Eosinophil# 0.15 X10^3/uL; Eosinophils% 2.2 % (0-5); Hematocrit 51.1 % (37-47); Hemoglobin 16.5 g/dL (12.0-15.0); Lymphocyte # 1.76 X10^3/ul (0.83-4.51); Lymphocyte % 25.6 % (19-41); Mean Corp Hgb Conc 32.3 g/dL (32-36); Mean Corpuscular Hgb 30.3 pg (27.0-32.0); Mean Corpuscular Volume 93.9 fL (81-99); Mean Platelet Vol. 8.7 fl (6.2-12.0); Monocyte# 0.44 X10^3/uL; Monocyte% 6.4 % (0-10); NRBC Flagged by Analyzer 0 % (0-5); Neutrophil # 4.46 X10^3/uL (2.7-7.7); Neutrophil % 64.8 % (47-70); Platelet Count 228 K/mm3 (150-450); RBC Distribution Width CV 11.9 % (11.6-14.6); Red Blood Count 5.44 M/mm3 (4.2-5.4); White Blood Count 6.9 K/mm3 (4.4-11.0)
[2022-06-26 07:47] LABS: Prothrombin Time (Protime)PT. 12.8 SECONDS (11.7-14.9)
[2022-06-26 08:00] LABS: T4 Free Direct 1.08 ng/dL (0.76-1.46); Thyroid Stim Hormone (TSH) 1.84 uIU/mL (0.358-3.74)
[2022-06-26] MEDS: fentaNYL 100 MCG/2 ML Ampul IV (08:52)
[2022-06-26] MEDS: Midazolam 2 MG/2 ML Syringe IV (08:52)
[2022-06-26] MEDS: Lidocaine 2% (20 ml mdv) 20 ML Vial INFILT (09:00)
[2022-07-05 09:29] LABS: Miscellaneous Lab Procedure SEE PATH REPORT; Miscellaneous Lab Procedure 2 SEE PATH REPORT; Miscellaneous Lab Procedure 3 SEE PATH REPORT
== END 2022-06-26 23:59 | disposition home or self-care (01) ==
PROVIDERS: PCP Family Medicine; Referring Provider Internal Medicine Medical Oncology; Visit Provider Internal Medicine Medical Oncology
DX: C90.02 Multiple myeloma in relapse (principal); D89.89 Other specified disorders involving the immune mechanism, not elsewhere classified; C64.2 Malignant neoplasm of left kidney, except renal pelvis; D75.1 Secondary polycythemia; N28.89 Other specified disorders of kidney and ureter; K59.00 Constipation, unspecified
CPT/HCPCS: 38222; 36415; 77012; 84439; 84443; 85025; 85610; 85730; 88305; 88311; 88313; 88341; 88342; 99156; J7050; A4216

== ENCOUNTER → 2022-07-12 | Outpatient (CLI) | payer MEDICARE, SELFPAY ==
--- NOTE | 2022-07-12 16:45 | CT_ITS ---
STUDY: CT ABDOMEN AND PELVIS WITH AND WITHOUT CONTRAST REASON FOR EXAM: Female, 76 years old. PERSONAL HISTORY OF OTHER MALIGNANT NEOPLASM OF KIDNEY. PRIOR PARTIAL LEFT NEPHRECTOMY AND GB. RADIATION DOSAGE (If Supplied By Facility): CTDIvol = ( 9.50 ) mGy, DLP = ( 1128.90 ) mGycm TECHNIQUE: Transaxial images were obtained from the dome of the diaphragm to the symphysis pubis without oral contrast. IV 75mL Isovue-370 was administered. Sagittal and coronal images were reconstructed. Individualized dose optimization techniques were used for this CT. COMPARISON: Comparison is made with prior study dated June 02, 2021. FINDINGS: The visualized lung bases are unremarkable. Coronary artery calcification. There is decreased attenuation of the liver consistent with steatosis. There are surgical clips in the gallbladder fossa consistent with a prior cholecystectomy. Normal spleen. Normal pancreas. Normal bilateral adrenal glands. Normal right kidney. Since prior study, the patient underwent partial nephrectomy along the lower pole of the left kidney. There is evidence of postoperative change with the linear areas of increased attenuation most likely secondary to prior surgery and suture material. There is a small hiatal hernia. Normal small intestine. There are scattered colonic diverticula consistent with diverticulosis. The appendix is visualized and appears normal. Normal abdominal aorta. Normal inferior vena cava. Normal retroperitoneum. Normal urinary bladder. Normal abdominal wall. There are degenerative changes of the visualized lumbar spine. Minimal anterior listhesis of L4 on L5. CT/CT Abd/Pelvis W/WO Contrast IMPRESSION: Status post partial nephrectomy involving the inferior aspect of the left kidney with findings suggestive of postoperative changes. Remainder of the examination is unchanged. Electronically Signed: Amandeep Porter MD at 14:29 EDT ,
== END | disposition home or self-care (01) ==
LOC: CT 16:42
PROVIDERS: PCP Family Medicine; Referring Provider Urology; Visit Provider Urology
DX: Z85.528 Personal history of other malignant neoplasm of kidney (principal)
CPT/HCPCS: 74178; Q9967

== ENCOUNTER → 2022-10-19 | Outpatient (CLI) | payer MEDICARE, SELFPAY ==
--- NOTE | 2022-10-19 08:32 | BI_ITS ---
MAMMOGRAPHY - BILATERAL SCREENING REASON FOR EXAM: Female, 77 years old. Routine annual screening examination. PERTINENT HISTORY: Aunts with breast cancer. TECHNIQUE: Digital bilateral breast waqas (3D mammographic acquisition) in the CC and MLO projections. 2-D mediolateral oblique (MLO) and craniocaudad (CC) views of both breasts were obtained. CAD: Full Field Digital Mammography with Computer Added Detection was performed. COMPARISON: Comparison is made with prior study dated October 17, 2021 and October 13, 2020. FINDINGS: Breast Composition: There are scattered areas of fibroglandular density. There are no dominant masses or suspicious calcifications. No other significant abnormalities are identified. There has been no significant change since the prior study. BI/SCRN MAMM (CAD)W/WAQAS BILAT IMPRESSION: Stable bilateral screening mammogram. Yearly follow-up mammogram recommended. (A) ASSESSMENT CATEGORY: BIRADS Category 1: Negative. A letter regarding these results will be sent to the patient by the facility within 30 days. Approximately 10% of breast cancers are not detected by mammography. A normal mammogram should not delay biopsy of a clinically suspicious abnormality. [id number] Electronically Signed: Amandeep Porter MD at 9:27 EDT ,
== END | disposition home or self-care (01) ==
LOC: OPBI 08:31
PROVIDERS: PCP Family Medicine; Referring Provider Family Medicine; Visit Provider Family Medicine
DX: Z12.31 Encounter for screening mammogram for malignant neoplasm of breast (principal); Z80.3 Family history of malignant neoplasm of breast
CPT/HCPCS: 77063; 77067

== ENCOUNTER → 2022-12-13 | Outpatient (CLI) | payer MEDICARE, SELFPAY ==
--- NOTE | 2022-12-13 08:17 | CT_ITS ---
STUDY: CT ABDOMEN AND PELVIS WITH CONTRAST REASON FOR EXAM: Female, 77 years old. MONITOR KIDNEY CA/MULTIPLE MYL MANJULA RADIATION DOSAGE (If Supplied By Facility): CTDIvol = ( 9.54 ) mGy, DLP = ( 453.45 ) mGycm TECHNIQUE: Transaxial images were obtained from the dome of the diaphragm to the symphysis pubis without oral contrast. Oral and amp;amp; IV Redi-CAT and amp;amp; 100mL Isovue-300 was administered. Sagittal and coronal images were reconstructed. Individualized dose optimization techniques were used for this CT. COMPARISON: Comparison is made with prior study July 12, 2022. FINDINGS: The visualized lung bases are unremarkable. The visualized portions of the heart are within normal limits. There is decreased attenuation of the liver consistent with steatosis. The patient is status post cholecystectomy. Normal spleen. Normal pancreas. Normal bilateral adrenal glands. Normal right kidney. The patient is status post partial nephrectomy along the lower pole of the left kidney. Stable deformity is seen. There is a small hiatal hernia. Normal small intestine. There are scattered colonic diverticula consistent with diverticulosis. The appendix is visualized and appears normal. There is scattered atherosclerotic calcification of the abdominal aorta, without a demonstrated aneurysm. Normal inferior vena cava. Normal retroperitoneum. Normal urinary bladder. Normal abdominal wall. There are mild degenerative changes of the visualized lumbar spine. Minimal anterior listhesis of L4 on L5. CT/Abdomen/Pelvis W IV Cont ONLY IMPRESSION: Stable examination. Electronically Signed: Amandeep Porter MD at 15:47 EDT ,
[2022-12-13 08:44] LABS: CREATININE FINGERSTICK 0.9 mg/dL (0.55-1.02); EGFR FINGERSTICK > 60.0000 mL/min (>60)
== END | disposition home or self-care (01) ==
LOC: CT 08:15
PROVIDERS: PCP Family Medicine; Referring Provider Internal Medicine Medical Oncology; Visit Provider Internal Medicine Medical Oncology
DX: D47.2 Monoclonal gammopathy (principal); C64.2 Malignant neoplasm of left kidney, except renal pelvis
CPT/HCPCS: 74177; Q9967

== ENCOUNTER → 2023-01-01 | Outpatient (CLI) | payer MEDICARE, SELFPAY ==
[2023-01-01] VITALS (7 sets, daily range): BP systolic 145–178; BP diastolic 54–90; PULSE 67–96; RESP 18; TEMP 36.3–36.9; O2SAT 98–100; BMI 25.7
--- NOTE | 2023-01-01 | IMM_PTH ---
PATIENT: FRIEDA ALLEN LOC: CT U#:[id number] AGE/SX: 77/F ROOM: RE01/01/[address]: Dr. Nitin Christine MD : 1945 BED: DIS: 01/01/2023 SPEC #: [id number] RECD: 01/03/23 14:07 STATUS: JASWINDER REQ #: [id number] RAMA: 01/01/23 00:[address]: Nitin Christine DEPT: IMMUNOHISTOCHEMISTRY RECD BY: Mattie Bocanegra ENTERED: 01/03/23 14:09 SP TYPE: IMMUNO OTHR DR: Dr. Polo Fuentes MD Tissues: B - Bone marrow of iliac crest Procedures: BCL-2 (add) CD138 (add) CD20 (add) CD3 (add) CD45 (add) CD5 (add) CD79A (add) KAPPA (add) KI-67 (add) LAMBDA (add) P53 (add) Pankeratin (initial) PHYSICIAN & [address] [address] SPECIMEN INFORMATION: Tissue Source: B - Bone marrow clot Clinical Info: History of multiple myeloma, increased serum light chain Specimen Number: [id number] CPT code: 41362, 08972 x11 METHODOLOGY: Deparaffinized sections of prefer/formalin-fixed tissue or PAP/DQ stained slides are incubated with monoclonal/polyclonal antibodies/oligonucleotide probes. Localization is made via biotin free immunoperoxidase method. Appropriate controls are performed and reacted as expected. Results on target cell population are indicated in the following table: RESULTS: ANTIBODY / CLONE RESULT Block B AE1-3 (AE1/AE3/PCK26) negative CD3 (PS1) negative CD5 (SP10) negative CD20 (L26) negative CD45 (RP2/18) negative CD79a (11E3) negative CD138 (B-A38) positive BCL-2 (bcl-2/100/D5) negative [place] (polyclonal) negative Lambda (polyclonal) negative P53 (DO-7) negative Ki-67 (30-9) positive These tests were developed and their performance characteristics determined by [facility]. They may not have been cleared or approved by the U.S. Food and Drug Administration. The FDA has determined that such clearance or approval is not necessary. The above immunohistochemical/dualISH markers are ordered and reviewed by the Pathologist. INTERPRETATION: B. Bone marrow clot: Focally increased plasma cell population. See comment. AM:yolette 01/04/2023 Comment: Residual plasma cell dyscrasia is favored.
--- NOTE | 2023-01-01 | BMB_PTH ---
PATIENT: FRIEDA ALLEN LOC: CT U#:[id number] AGE/SX: 77/F ROOM: RE01/01/[address]: Dr. Nitin Christine MD : 1945 BED: DIS: 01/01/2023 SPEC #: [id number] RECD: 01/01/23 10:38 STATUS: JASWINDER REUriel #: [id number] RAMA: 01/01/23 00:[address]: Nitin Christine DEPT: BONE MARROW RECD BY: Alonzo Powell ENTERED: 01/01/23 10:39 SP TYPE: BMB OTHR DR: Dr. Polo Fuentes MD Tissues: A - Bone marrow, NOS B - Bone marrow, NOS C - Bone marrow, NOS Procedures: Bone Marrow Aspiration Bone Marrow Core Biopsy Iron Stain Bone Marrow HEADER OPERATION: Bone marrow biopsy and aspiration PRE-OP DIAGNOSIS: History of multiple myeloma, increased serum light chain TISSUE SUBMITTED: A - Core, B - Clot, C - Smears, and send outs (flow, cytogenetics & MM) BONE MARROW DIAGNOSIS Bone marrow biopsy, clot and aspiration: Consistent with residual plasma cell dyscrasia. Normocellular marrow. See comment. AM:yolette 01/04/2023 COMMENT B. Flow cytometry analysis of aspirate material reveals no significant immunophenotypic abnormality. Sections of the clot reveal focal minute foci of clustered plasma cells consistent with residual plasma cell dyscrasia. Immunohistochemistry ([id number]) supports the above diagnosis. Due to the limited nature of the specimen, clonality was unable to be determined. Clinical correlation is suggested. FISH studies are pending and will be reported as an addendum. Case has been reviewed in consultation with Dr. Nova who concurs with the above diagnosis. IDC:SJ BONE MARROW STUDY Slides are reviewed. CBC DATE: 01/01/23 WBC 7.2; RBC 5.07; HGB 15.6; HCT 47.6; MCV 93.3; RDW 12.5; PLTS 227,000 SEGS 67.1%; LYMPHS 22.9%; MONOS 6.4%; EOS 2.5%; BASOS 0.8% PERIPHERAL SMEAR: Submitted. RBC: Normocytic, normochromic WBC: Normomorphic PLTS: Normomorphic BONE MARROW ASPIRATE DIFFERENTIAL: 200 cell count. Blasts % (normal 0-2): 2 Promyelocytes % (normal 1-5): 3 Myelocytes and metamyelocytes % (normal 17-41): 38 Bands and Segs % (normal 15-32): 20 Eos % (normal 1-6): 1 Basos % (normal 0-1): 0 Monocytes % (normal 0-4): 0 Erythroid Precursors % (normal 17-35): 22 Lymphocytes % (normal 7-13): 10 Plasma Cells % (normal 0-2): 4 ASPIRATE FINDINGS: Site: Right hip Paucispicular Hypocellular M/E ratio: 2.9 (Normal 1.5 - 4.0) Megakaryocytes: Adequate Erythropoiesis: Normoblastic Granulopoiesis: Progressive maturation Other findings: Mature plasma cells are increased (approximately 4%) CORE BIOPSY FINDINGS: Site: Right hip Adequacy: Inadequate Cellularity %: Not applicable M/E ratio: Not applicable Comment: Specimen consists of bone with rare bone marrow elements. ASPIRATE CLOT FINDINGS: Site: Right hip Marrow Particles: Adequate Cellularity %: 50% M/E ratio: Within normal limits Megakaryocytes: Adequate Granuloma(s): 0 Lymphoid aggregate(s): 0 Atypical infiltrate(s): Minute foci of clustered plasma cells consistent with residual plasma cell dyscrasia. SPECIAL STAINS (with matched controls): Iron: Stainable iron present Reticulin: Within normal limits. PAS: Highlights myeloid elements and megakaryocytes. BONE MARROW GROSS A - Received is a container labeled with the patient's name and designated right hip bone marrow. The specimen consists of a minute fragment of blood clot measuring 0.3 x 0.1 x 0.1 cm. The specimen is totally submitted in one cassette. B - Received labeled with the patient's name and designated right hip bone marrow is a specimen that consists of approximately 3 ml of bloody fluid that on filtration yields multiple minute fragments of blood clots measuring in aggregate 2.5 x 1.0 x 0.1 cm. The specimen is totally submitted in one cassette. C - Also received are 16 unstained and 1 peripheral stained slides. The unstained slides are submitted for appropriate staining. Also received is one green top tube which is sent to our reference lab for flow, cytogenetics & MM. / SJ:rg 01/01/2023 TC:0 CPT: 78527, 28767, 61747 x2, 96837 x3 ADDENDUM ADDENDUM ADDENDUM ADDENDUM ADDENDUM ADDENDUM ADDENDUM ADDENDUM ADDENDUM ADDENDUM ADDENDUM ADDENDUM 01/18/2023 10:26 ADDENDUM 01/18/2023 10:26 ADDENDUM 01/18/2023 10:26 ADDENDUM 01/18/2023 10:26 ADDENDUM 01/18/2023 10:26 CYTOGENETICS REPORT FROM [facility] CYTOGENETIC RESULT: 46,XX[20] INTERPRETATION: Normal female karyotype was observed in twenty metaphases analyzed. MULTIPLE MYELOMA FISH PANEL FROM [facility] FISH RESULT: Normal multiple myeloma panel. Please see complete report in e-chart or EMR
--- NOTE | 2023-01-01 07:42 | CT_ITS ---
PROCEDURE: CT GUIDED bone marrow biopsy of the posterior right iliac bone. DATE: January 01, 2023. INDICATION: Female, 77 years old. History of multiple myeloma. PHYSICIAN: Amandeep Porter M.D. RADIATION DOSAGE (If Supplied By Facility): CTDIvol = ( 17 ) mGy, DLP = ( 2091.41 ) mGycm. Individualized dose optimization techniques were utilized. PROCEDURE: The risks, benefits, and alternatives to the procedure were explained to the patient. The specific risk of hemorrhage requiring further treatment or intervention was detailed and accepted. Follow-up instructions were discussed with the patient as well. Written informed consent was obtained. The patient was brought into the CT suite and placed in the prone position. . An appropriate entry site was identified. The overlying skin was prepped and draped in the usual sterile fashion. 1% lidocaine was administered subcutaneously for local anesthesia. Conscious sedation was performed. The patient received 2 mg of Versed and 50 mcg of fentanyl intravenously. Conscious sedation was started at 9:20 AM and terminated at 9:40 AM. The patient was independently monitored by the department nurse. Under CT guidance, a bone marrow biopsy and bone marrow aspiration were performed utilizing an 11-gauge bone marrow biopsy kit. The specimens were then placed in the appropriate fluid and transported to the laboratory for analysis. Hemostasis was obtained. The patient tolerated the procedure well without immediate complications. CT/Biopsy/Inj or Needle Placement IMPRESSION: Successful CT guided bone marrow biopsy and bone marrow aspiration, as described above. Conscious sedation protocol was followed. Electronically Signed: Amandeep Porter MD at 13:11 EDT ,
[2023-01-01 07:50] LABS: Absolute Lymphocyte Count 1.66 X10^3/uL (0.83-4.51); Absolute Neutrophil Count 4.9 X10^3/uL (2.0-7.7); Basophil# 0.06 X10^3/uL; Basophil% 0.8 % (0-1); Eosinophil# 0.18 X10^3/uL; Eosinophils% 2.5 % (0-5); Hematocrit 47.6 % (37-47); Hemoglobin 15.6 g/dL (12.0-15.0); Lymphocyte # 1.66 X10^3/ul (0.83-4.51); Lymphocyte % 22.9 % (19-41); Mean Corp Hgb Conc 32.8 g/dL (32-36); Mean Corpuscular Hgb 30.8 pg (27.0-32.0); Mean Corpuscular Volume 93.9 fL (81-99); Mean Platelet Vol. 8.9 fl (6.2-12.0); Monocyte# 0.46 X10^3/uL; Monocyte% 6.4 % (0-10); NRBC Flagged by Analyzer 0 % (0-5); Neutrophil # 4.86 X10^3/uL (2.7-7.7); Neutrophil % 67.1 % (47-70); Platelet Count 227 K/mm3 (150-450); RBC Distribution Width CV 12.5 % (11.6-14.6); RBC Distribution Width SD 42.7 fl (35.1-43.9); Red Blood Count 5.07 M/mm3 (4.2-5.4); White Blood Count 7.2 K/mm3 (4.4-11.0)
[2023-01-01] MEDS: Midazolam 2 MG/2 ML Syringe IV (09:20)
[2023-01-01] MEDS: fentaNYL 100 MCG/2 ML Ampul IV (09:20)
[2023-01-01] MEDS: 0.9% Normal Saline (250mL Bag) 250 ML 15 ML IV (09:20)
[2023-01-01] MEDS: Lidocaine 2% (20 ml mdv) 20 ML Vial INFILT (09:25)
[2023-01-18 10:27] LABS: Miscellaneous Lab Procedure SEE PATH REPORT; Miscellaneous Lab Procedure 2 SEE PATH REPORT; Miscellaneous Lab Procedure 3 SEE PATH REPORT
== END | disposition home or self-care (01) ==
PROVIDERS: Radiology Diagnostic Radiology; PCP Family Medicine; Referring Provider Internal Medicine Medical Oncology; Visit Provider Internal Medicine Medical Oncology
DX: Z01.818 Encounter for other preprocedural examination (principal); C90.00 Multiple myeloma not having achieved remission; D47.2 Monoclonal gammopathy
CPT/HCPCS: 38222; 36415; 77012; 85025; 88305; 88311; 88313; 88341; 88342; 99156; J7050; A4216

== ENCOUNTER → 2023-01-12 | Outpatient (CLI) | payer MEDICARE, SELFPAY ==
[2023-01-12 12:09] LABS: Protein:Creat Ratio 1171 mg/g CRE (0-200)
== END | disposition home or self-care (01) ==
LOC: LAB 11:03
PROVIDERS: PCP Family Medicine; Referring Provider Internal Medicine Nephrology; Visit Provider Internal Medicine Nephrology
DX: N18.31 Chronic kidney disease, stage 3a (principal)
CPT/HCPCS: 82570; 84156

== ENCOUNTER → 2023-01-17 | Outpatient (CLI) | payer MEDICARE, SELFPAY ==
[2023-01-17 09:40] LABS: Absolute Lymphocyte Count 1.75 X10^3/uL (0.83-4.51); Absolute Neutrophil Count 4.4 X10^3/uL (2.0-7.7); Basophil# 0.07 X10^3/uL; Eosinophils% 2.9 % (0-5); Hematocrit 46.2 % (37-47); Lymphocyte # 1.75 X10^3/ul (0.83-4.51); Mean Corp Hgb Conc 32.5 g/dL (32-36); Mean Corpuscular Hgb 30.6 pg (27.0-32.0); Mean Corpuscular Volume 94.3 fL (81-99); Mean Platelet Vol. 9.1 fl (6.2-12.0); Monocyte# 0.56 X10^3/uL; NRBC Flagged by Analyzer 0 % (0-5); Neutrophil % 62.8 % (47-70); Platelet Count 246 K/mm3 (150-450); RBC Distribution Width CV 12.6 % (11.6-14.6); RBC Distribution Width SD 43.7 fl (35.1-43.9)
[2023-01-17 09:57] LABS: Partial Thromboplast Time 26.6 Seconds (24.1-36.2)
== END | disposition home or self-care (01) ==
LOC: LAB 08:41
PROVIDERS: PCP Family Medicine; Referring Provider Internal Medicine Nephrology; Visit Provider Internal Medicine Nephrology
DX: Z01.818 Encounter for other preprocedural examination (principal)
CPT/HCPCS: 36415; 85025; 85610; 85730

== ENCOUNTER → 2023-01-25 | Outpatient (CLI) | payer MEDICARE, SELFPAY ==
[2023-01-25 10:52] LABS: ALB/GLOB Ratio 0.9 RATIO (0.9-2.4); AST(SGOT) 18 U/L (15-37); Alanine Aminotransfer ALT/SGPT 15 U/L (13-56); Albumin, Serum 3.5 g/dL (3.2-5.0); Alkaline Phosphatase 78 U/L (45-117); Anion Gap 7 (5-15); BUN 23 mg/dL (7-18); BUN/Creat Ratio 24.4 RATIO (10-20); Chloride 108 mmol/L (98-107); Cholesterol 153 mg/dL (200); Creatinine, Serum 0.94 mg/dL (0.55-1.02); EST Glomerular Filtration Rate 61 mL/min (>60); Est Glom Filt Rate - Afr Amer 74 mL/min (>60); Globulin 3.9 g/dL (2.2-4.2); Glucose 103 mg/dL (74-106); High Density Lipoprotein 63 mg/dL; Potassium 3.9 mmol/L (3.5-5.1); Protein, Total 7.4 g/dL (6.4-8.2); Sodium Level 140 mmol/L (136-145); Triglycerides 222 mg/dL; Very Low Density Lipoprotein 44 mg/dL (5-40)
== END | disposition home or self-care (01) ==
LOC: MFPLAB 08:31
PROVIDERS: PCP Family Medicine; Visit Provider Family Medicine
DX: I10 Essential (primary) hypertension (principal)
CPT/HCPCS: 36415; 80053; 80061

== ENCOUNTER → 2023-02-07 | Outpatient (CLI) | payer MEDICARE, SELFPAY ==
--- NOTE | 2023-02-06 | KID_PTH ---
PATIENT: FRIEDA ALLEN LOC: CT U#:[id number] AGE/SX: 77/F ROOM: RE02/07/[address]: Dr. Archie Mccormack MD : 1945 BED: DIS: 02/07/2023 SPEC #: [id number] RECD: 02/07/23 10:23 STATUS: JASWINDER REUriel #: [id number] RAMA: 02/06/23 00:[address]: Archie Mccormack DEPT: SURGICAL PATHOLOGY RECD BY: Alonzo Powell ENTERED: 02/07/23 10:23 SP TYPE: KIDNEY OTHR DR: Dr. Polo Fuentes MD Tissues: Kidney, NOS Procedures: Fluorescent Antibody (ACH) Sp St Grp II Kidney (ACH) Kidney Biopsy (ACH) Fluorescent antibody (ACH) add'l HEADER OPERATION: Right kidney biopsy PRE-OP DIAGNOSIS: Chronic kidney disease stage 3 TISSUE SUBMITTED: Kidney 18-gauge x4 MICROSCOPIC DIAGNOSIS Right kidney, biopsies, Diffuse glomeruloclerosis. Arteriosclerotic and hypertensive changes. Negative for significant interstitial inflammation or fibrosis. See comment. COMMENT Correlate clinically with history and onset of symptoms. Case reviewed with Dr. Moody who concurs. 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 No evidence of immune-mediated or inflammatory glomerulopathy. There is no evidence of significant tubulointerstitial inflammation to suggest a definitive light-chain cast nephropathy. There is no evidence of lambda glomerular signal. 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 Preliminary findings discussed with Dr. Mccormack on 02/09/[address] Manny Pena. Electron microscopy deferred. MICROSCOPIC DESCRIPTION Slides are reviewed at [facility]- Light microscopy examined with H&E, PAS, Saucedo abdon, trichrome and Congo red stains yields adequate renal cortex for evaluation. There are 43 glomeruli observed; of which he majority (29 glomeruli) are globally sclerosed. The remaining open glomeruli show variable evidence of capillary loop thickening changes and subtle focal glomerulomegaly. Rare glomeruli show evidence of an ischemic appearance. There is no evidence of glomerular inflammation or crescent formation or focal segmental sclerosis. Focal glomerular hilar vessels show thickening and hyaline changes. The interstitium shows no evidence of significant inflammation or fibrosis (trichrome stain estimates cortical fibrosis at approximately 5%). Ratre/focal tubules show Tamm-Horsfall proteinaceous material. No evidence of overt cracked casts by PAS stain. Examination of the vessels shows significant asymmetric arteriole thickening. No evidence of vasculitis. Rare medullary tissue is present. Focal renal capsule is present. Congo red stain is negative for any evidence of amyloid deposition or accumulation. Special stain positive controls are reviewed and deemed adequate. Case reviewed with Dr. oMody. Electron microscopy is deferred IMMUNOFLUORESCENCE; Tissue frozen and submitted for immunofluorescence evaluations yields 7 glomeruli; of which 3 are globally sclerosed. There is background glomerular and cortex signal with IgG and albumin. IgA, kappa, and lambda show focal dense signal in tubules; lambda slightly greater than kappa. IgM, C3, C1q, and fibrin are essentially negative. Positive and negative immunofluorescence controls are reviewed and deemed adequate. GROSS DESCRIPTION The specimen is sent entirely to [facility] for diagnosis. Per [facility] - Received in polytransport medium in a container labeled with the patient's name and designation kidney are 3 cores of nicole renal tissue measuring 1.6 cm, 1.4 cm, and 1.2 cm in length; each approximately 0.1 cm in width. Glomeruli are seen under the dissecting microscope. The specimen is divided for immunofluorescence, electron microscopy, and light microscopy.
[2023-02-07] VITALS (12 sets, daily range): BP systolic 140–181; BP diastolic 70–94; PULSE 81–105; RESP 13–23; TEMP 36.7; O2SAT 98–100; BMI 26.2
--- NOTE | 2023-02-07 07:42 | CT_ITS ---
PROCEDURE: CT GUIDED PERCUTANEOUS KIDNEY BIOPSY. DATE: February 07, 2023. INDICATION: Female, 77 years old. Chronic kidney disease stage III PHYSICIAN: Amandeep Porter M.D. MEDICATIONS: 2 mg of Versed and 50 mcg of fentanyl intravenously. Conscious sedation was performed. The patient was independently monitored by the department nurse. ACCESS SITE: Lower pole right kidney. NEEDLE: 18-gauge core biopsy needle system SPECIMEN: 4 18-gauge cores EBL: None. COMPLICATIONS: None immediate. RADIATION DOSAGE (If Supplied By Facility): CTDIvol = ( 14.5 ) mGy, DLP = ( 223.47 ) mGycm. Individualized dose optimization techniques were utilized. The risks, benefits, and alternatives to the procedure and sedation were explained to the patient. The specific risk of hemorrhage requiring further treatment or intervention was detailed and accepted. Written informed consent was obtained. The patient was placed on the CT table in the prone position. Multiple axial images were obtained from the lung base through the caudal extent of the kidneys. An appropriate entry site was identified and a marva made on the skin. The skin overlying the [right pole ] posterior flank was prepped and draped in sterile fashion. 1% lidocaine was administered subcutaneously for local anesthesia. Initially, a 22 gauge needle was advanced and CT images confirmed good needle position. The 22 gauge needle was then exchanged for an 17 gauge introducer needle which was advanced. Repeat CT images confirmed good needle trajectory and tip position. The introducer needle was then advanced into the periphery of the inferior renal pole, and CT images were again obtained to confirm exact tip location. The inner stylet of the introducer needle was then removed and an 18 gauge coaxial needle was advanced thru the introducer needle and biopsy performed. A total of [4 ] passes were performed and the specimen collected was sent to Pathology for further evaluation. The needle was withdrawn. Hemostasis was achieved with manual compression and a sterile dressing was applied. Repeat CT images of the biopsy area was performed which demonstrated no gross bleeding or hematoma. The patient tolerated the procedure well without immediate complications. The patient was transported to the [floor/recovery area] in stable condition. CT/Biopsy/Inj or Needle Placement IMPRESSION: Successful CT guided percutaneous kidney biopsy. Conscious sedation was performed. Electronically Signed: Amandeep Porter MD at 9:28 EDT ,
[2023-02-07 07:57] LABS: Platelet Count 209 K/mm3 (150-450)
[2023-02-07 08:13] LABS: International Normalized Ratio 0.9; Prothrombin Time (Protime)PT. 12.5 SECONDS (11.7-14.9)
[2023-02-07 08:14] LABS: Partial Thromboplast Time 25.6 Seconds (24.1-36.2)
[2023-02-07] MEDS: 0.9% Saline Lock 10 ML Syringe IV (08:30)
[2023-02-07] MEDS: 0.9% Normal Saline (250mL Bag) 250 ML 15 ML IV (08:30)
[2023-02-07] MEDS: Midazolam 2 MG/2 ML Syringe IV (08:46)
[2023-02-07] MEDS: fentaNYL 100 MCG/2 ML Ampul IV (08:48)
[2023-02-07] MEDS: Lidocaine 2% (20 ml mdv) 20 ML Vial INFILT (09:01)
--- NOTE | 2023-02-07 09:19 | PRO.PCM_ITS ---
Procedure Report Date of Procedure: 02/07/23 Assessment & Plan Assessment/Plan (1) Chronic renal disease, stage II: PLAN: PROCEDURE: CT GUIDED RIGHT PERCUTANEOUS KIDNEY BIOPSY. ORDERING PROVIDER: Dr. Mccormack INDICATION: Female, 77 years old. Chronic kidney disease stage 3a. PROVIDER: RICO Alvarez MEDICATIONS: 2 mg of Versed and 50 mcg of fentanyl intravenously. Procedural sedation was started at 0846 and terminated at 0906. The patient was monitored by the department nurse. ACCESS SITE: Medial midportion of the right kidney. NEEDLE: 18-gauge core biopsy needle system. SPECIMEN: 4 18-gauge cores of the right kidney. EBL: None. COMPLICATIONS: None immediate. RADIATION DOSAGE (If Supplied By Facility): CTDIvol = 19.435 mGy, DLP = 223.47 mGycm. Individualized dose optimization techniques were utilized. TECHNIQUE: The risks, benefits, and alternatives to the procedure and sedation were explained to the patient. The specific risk of hemorrhage requiring further treatment or intervention was detailed and accepted. Written informed consent was obtained. The patient was placed on the CT table in the prone position. Multiple axial images were obtained from the lung base through the caudal extent of the kidneys. An appropriate entry site was identified and a marva made on the skin. The skin overlying the right posterior flank was prepped and draped in sterile fashion. 2% lidocaine was administered subcutaneously for local anesthesia. Initially, a 22 gauge needle was advanced and CT images confirmed good needle position. The 22 gauge needle was then exchanged for a 17 gauge introducer needle which was advanced. Repeat CT images confirmed good needle trajectory and tip position. The introducer needle was then advanced into the periphery of the mid [ ] renal pole, and CT images were again obtained to confirm exact tip location. The inner stylet of the introducer needle was then removed, and an 18 gauge coaxial needle was advanced thru the introducer needle and biopsy performed. A total of 4 passes were performed of the kidney, and the specimen collected was sent to Pathology for further evaluation. The needle was withdrawn. Hemostasis was achieved with manual compression and a sterile dressing was applied. The patient tolerated the procedure well without immediate complications. The patient was transported to [facility] for post procedure monitoring per protocol. IMPRESSION: 1. Successful CT guided percutaneous right kidney biopsy. Pathology results are pending. 2. Procedural Sedation protocol utilized with independent monitoring by the department nurse. Procedures Radiology Radiology CT Procedures: 34889 Biopsy Kidney
== END | disposition home or self-care (01) ==
PROVIDERS: Nurse Practitioner Acute Care; PCP Family Medicine; Referring Provider Internal Medicine Nephrology; Visit Provider Internal Medicine Nephrology
DX: Z01.818 Encounter for other preprocedural examination (principal); N18.31 Chronic kidney disease, stage 3a; E78.5 Hyperlipidemia, unspecified
CPT/HCPCS: 50200; 36415; 77012; 85049; 85610; 85730; 88305; 88313; 88346; 88350; 99156; J7050; A4216

== ENCOUNTER → 2023-06-04 | Outpatient (CLI) | payer MEDICARE, SELFPAY ==
[2023-06-04 13:55] LABS: Protein, Urine (Random) 228.7 mg/dL (<11.9); Protein:Creat Ratio 1314 mg/g CRE (0-200)
[2023-06-04 14:01] LABS: Anion Gap 4 (5-15); BUN 26 mg/dL (7-18); Calcium,Total 9.4 mg/dL (8.5-10.1); Chloride 108 mmol/L (98-107); Creatinine, Serum 1.18 mg/dL (0.55-1.02); EST Glomerular Filtration Rate 47 mL/min (>60); Est Glom Filt Rate - Afr Amer 57 mL/min (>60); Glucose 131 mg/dL (74-106); Potassium 3.5 mmol/L (3.5-5.1); Sodium Level 140 mmol/L (136-145)
--- OUTSIDE RECORDS SUMMARY | 2023-06-04 21:25 | XMS RPT_ITS | CCD ---
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 Name Role Phone MIGUEL, TAL Chen Attending Unavailable MIGUEL, TAL Chen Primary Care Unavailable MIGUEL, TAL Chen Admitting Unavailable MIGUEL, TAL Chen Attending Unavailable MIGUEL, TAL Chen Primary Care Unavailable MIGUEL, TAL Chen Admitting Unavailable KELLY FRAZIER, ORALIA SKAGGS Primary Care Physician RAJANI FRAZIER, DR POLO Case Primary Care Physician OBIE FRAZIER, DR HUMPHREYS Attending Elliot GERARD MD, DR POLO Case Primary Care Unavailmiguel angel RAGLAND MD, DR HUMPHREYS Attending Elliot GERARD MD, DR POLO Case Primary Care Unavailmiguel angel Gerard MD, Polo Case Primary Care Provider [phone] POLO GERARD Primary Care Unavailable NITIN WELCH. Attending Unavailable POLO GERARD Primary Care Unavailable NITIN WELCH. Attending Unavailable NITIN WELCH. Referring Unavailable NITIN WELCH. Attending Unavailable NITIN WELCH. Referring Unavailable POLO GERARD Primary Care Unavailable POLO GERARD Primary Care Unavailable PEDRO HAIR Attending Unavailable POLO GERARD Primary Care Unavailable PEDRO HAIR Attending Unavailable PEDRO HAIR Attending Unavailable PEDRO HAIR Referring Unavailable POLO GERARD Primary Care Unavailable Unavailable Primary Care Provider Unavailmiguel angel chen Allergies Allergy Classification Reported Allergen(s) Allergy Type Date of Onset Reaction(s) Facility (5 sources) Naproxen; Translations: [naproxen] Drug Allergy Renal function (observable entity) [facility] (4 sources) Non-steroidal anti-inflammato ry agent Drug Intolerance 3 Other [facility] (1 source) Non-steroidal anti-inflammato ry agent Propensity to adverse reactions 8 [facility] Work Phone: Medications Current Medications Medication Drug Class(es) Dates Sig (Normalized) Sig (Original) acetaminophen 325 mg / HYDROcodone bitartrate 5 mg oral tablet (1 source) Opioid Agonist Start: 07-16-2021 End: 07-19-2021 take 1 tablet by mouth every six hours as needed for pain [place] 325- 5 mg oral tablet Dose = 1 tab(s), Oral, q6h, PRN for pain, X 3 day(s), # 12 tab(s), 0 Refill(s), Pharmacy: [id number], Left renal mass, 160, cm, 07/15/21 12:11:00 EDT, Height, 64.6 Start Date: 07/16/21 Stop Date: 07/19/21 Status: Ordered amLODIPine 5 mg oral tablet (9 sources) Dihydropyridine Calcium Channel Lisa Start: 06-09-2021 amLODIPine 5 mg oral tablet Dose : 5 mg = 1 tab(s), Oral, qAM, 0 Refill(s) Start Date: 06/09/21 Status: Ordered clobetasol propionate 0.5 mg/ml topical solution (4 sources) Corticosteroid clobetasol (Temovate) 0.05 % external solution Apply 1 Application topically 2 times daily. 0 Active docusate sodium 100 mg oral capsule (2 sources) Start: 06-29-2011 End: 07-23-2021 Colace 100 mg oral capsule Dose : 100 mg = 1 cap(s), Oral, BID, Take this medication to prevent constipation after surgery., # 14 cap(s), 0 Refill(s), Pharmacy: [id number], 160, cm, 07/15/21 12:11:00 EDT, Height Start Date: 07/16/21 Stop Date: 07/23/21 Status: Ordered Completed/Discontinued Medications Medication Drug Class(es) Dates Sig (Normalized) Sig (Original) 500 ml albumin human, longterm 50 mg/ml injection (2 sources) Human Serum Albumin Start: 05-02-2023 End: 05-02-2023 albumin human 5 % IV solution - Pyxis ADS Override Pull ALPRAZolam 0.5 mg oral tablet (2 sources) Benzodiazepine Start: 05-02-2023 End: 05-02-2023 ALPRAZolam (Xanax) tablet 0.25 mg Problems Active Problems Problem Classification Problem Date Documented Da te Episodic/Chronic Cancer; other and unspecified primary (1 source) H/O: malignant neoplasm 08-08-2021 Episodic Essential hypertension (3 sources) Essential hypertension; Translations: [Essential (primary) hypertension] Onset: 07-15-2021 Chronic Immunity disorders (4 sources) Disorder of immune function; Translations: [Other specified disorders involving the immune mechanism, not elsewhere classified] Onset: 05-02-2023 05-02-2023 Chronic Multiple myeloma (1 source) Multiple myeloma; Translations: [Multiple myeloma not having achieved remission] Onset: 05-30-2011 05-30-2011 Chronic Other diseases of kidney and ureters (4 sources) Renal mass 06-08-2021 Chronic Other diseases of kidney and ureters (1 source) Disorder of kidney and/or ureter; Translations: [Other specified disorders of kidney and ureter] Onset: 07-15-2021 Chronic Other diseases of kidney and ureters (1 source) Renal impairment; Translations: [Disorder resulting from impaired renal tubular function, unspecified] Onset: 02-25-2008 02-25-2008 Chronic Other hematologic conditions (2 sources) Serum/plasma protein finding; Translations: [Abnormality of plasma protein, unspecified] Onset: 04-13-2023 03-29-2023 Episodic Other hematologic conditions (1 source) Abnormality of plasma protein, unspecified; Translations: [Abnormality of plasma protein, unspecified] Onset: 04-13-2023 Episodic Other screening for suspected conditions (not mental disorders or infectious disease) (5 sources) Computed tomography result abnormal 06-08-2021 Chronic Residual codes; unclassified (1 source) History of partial nephrectomy 08-08-2021 Episodic Past or Other Problems Problem Classification Problem Date Documented Da te Episodic/Chronic Nonspecific chest pain (1 source) Chest pain; Translations: [Chest pain, unspecified] Onset: 03-21-2006 03-21-2006 Episodic Results Test Name Value Interpretation Reference Range Facil ity Vital Signs Date Time Vital Sign Value Performing Clinician Keena oneill 05-02-2023 12:00-0500 Diastolic blood pressure 67 mm[Hg] Joseph. Welch Work Phone: [facility] 05-02-2023 12:00-0500 Heart rate 86 /min Joseph. Welch Work Phone: [facility] 05-02-2023 12:00-0500 SaO2% (BldA) [Mass fraction] 95 % Joseph. Welch Work Phone: [facility] 05-02-2023 12:00-0500 Systolic blood pressure 135 mm[Hg] Joseph. Welch Work Phone: [facility] 05-02-2023 10:30-0500 Respiratory rate 12 /min Joseph. Welch Work Phone: [facility] 05-02-2023 07:23-0500 Body height 160 cm Joseph. Welch Work Phone: [facility] 05-02-2023 07:23-0500 Body mass index (BMI) [Ratio] 25.69 kg/m2 Joseph. Welch Work Phone: [facility] 05-02-2023 07:23-0500 Body temperature 97.59 [degF] Joseph. Welch Work Phone: [facility] 05-02-2023 07:23-0500 Body weight 65.77 kg Joseph. Welch Work Phone: [facility] 03-29-2023 09:00-0500 Diastolic blood pressure 76 mm[Hg] Joseph. Welch Work Phone: [facility] 03-29-2023 09:00-0500 Heart rate 88 /min Joseph. Welch Work Phone: [facility] 03-29-2023 09:00-0500 Respiratory rate 19 /min Joseph. Welch Work Phone: [facility] 03-29-2023 09:00-0500 SaO2% (BldA) [Mass fraction] 100 % Joseph. Welch Work Phone: [facility] 03-29-2023 09:00-0500 Systolic blood pressure 155 mm[Hg] Joseph. Welch Work Phone: [facility] 03-29-2023 06:51-0500 Body height 160 cm Joseph. Cochran Work Phone: [facility] 03-29-2023 06:51-0500 Body mass index (BMI) [Ratio] 25.69 kg/m2 [facility] Work Phone: [facility] 03-29-2023 06:51-0500 Body temperature 97.5 [degF] [facility] Work Phone: [facility] 03-29-2023 06:51-0500 Body weight 65.77 kg [facility] Work Phone: [facility] 07-16-2021 15:56-0400 Body temperature 98.6 [degF] DR PETR RAGLAND MD [facility] 07-16-2021 15:56-0400 Diastolic blood pressure 70 mm[Hg] DR PETR RAGLAND MD [facility] 07-16-2021 15:56-0400 Heart rate 97 /min DR PETR RAGLAND MD [facility] 07-16-2021 15:56-0400 Mean blood pressure 86 mm[Hg] DR PETR RAGLAND MD [facility] 07-16-2021 15:56-0400 Reason For Taking VItal Signs DR PETR RAGLAND MD [facility] 07-16-2021 15:56-0400 Respiratory rate 18 /min DR PETR RAGLAND MD [facility] 07-16-2021 15:56-0400 Systolic blood pressure 117 mm[Hg] DR PETR RAGLAND MD [facility] 07-16-2021 11:27-0400 Body temperature 97.34 [degF] DR PETR RAGLAND MD [facility] 07-16-2021 11:27-0400 Diastolic blood pressure 64 mm[Hg] DR PETR RAGLAND MD [facility] 07-16-2021 11:27-0400 Heart rate 85 /min DR PETR RAGLAND MD [facility] 07-16-2021 11:27-0400 Respiratory rate 18 /min DR PETR RAGLAND MD [facility] 07-16-2021 11:27-0400 Systolic blood pressure 147 mm[Hg] DR PETR RAGLAND MD [facility] 07-16-2021 06:25-0400 Body temperature 98.06 [degF] DR PETR RAGLAND MD [facility] 07-16-2021 06:25-0400 Diastolic blood pressure 70 mm[Hg] DR PETR RAGLAND MD [facility] 07-16-2021 06:25-0400 Heart rate 82 /min DR PETR RAGLAND MD [facility] 07-16-2021 06:25-0400 Respiratory rate 18 /min DR PETR RAGLAND MD [facility] 07-16-2021 06:25-0400 Systolic blood pressure 119 mm[Hg] DR PETR RAGLAND MD [facility] 07-16-2021 03:47-0400 Heart rate 79 /min DR PETR RAGLAND MD [facility] 07-16-2021 03:47-0400 Mean blood pressure 91 mm[Hg] DR PETR RAGLAND MD [facility] 07-15-2021 23:37-0400 Reason For Taking VItal Signs DR PETR RAGLAND MD [facility] 07-15-2021 12:12-0400 Diastolic blood pressure 58 mm[Hg] DR PETR RAGLAND MD [facility] 07-15-2021 12:12-0400 Heart rate 84 /min DR PETR RAGLAND MD [facility] 07-15-2021 12:12-0400 Systolic blood pressure 107 mm[Hg] DR PETR RAGLAND MD [facility] 07-15-2021 12:11-0400 Body height [address] PETR RAGLAND MD [facility] 07-15-2021 12:11-0400 Body weight 64.[address] PETR RAGLAND MD [facility] 07-15-2021 12:11-0400 Body weight 25.23 kg/m2 DR PETR RAGLAND MD [facility] 07-15-2021 11:56-0400 Body temperature 96.8 [degF] DR PETR RAGLAND MD [facility] 07-15-2021 11:56-0400 Diastolic blood pressure 48 mm[Hg] DR PETR RAGLAND MD [facility] 07-15-2021 11:56-0400 Diastolic Blood Pressure NBP [address] PETR RAGLAND MD [facility] 07-15-2021 11:56-0400 Heart rate 89 /min DR PETR RAGLAND MD [facility] 07-15-2021 11:56-0400 Mean blood pressure 74 mm[Hg] DR PETR RAGLAND MD [facility] 07-15-2021 11:56-0400 Mean blood pressure 67 mm[Hg] DR PETR RAGLAND MD [facility] 07-15-2021 11:56-0400 Systolic blood pressure 113 mm[Hg] DR PETR RAGLAND MD [facility] 07-15-2021 11:56-0400 Systolic Blood Pressure NBP [address] PETR RAGLAND MD [facility] 07-15-2021 11:36-0400 Diastolic blood pressure 61 mm[Hg] DR PETR RAGLAND MD [facility] 07-15-2021 11:36-0400 Heart rate 95 /min DR PETR RAGLAND MD [facility] 07-15-2021 11:36-0400 Mean blood pressure 91 mm[Hg] DR PETR RAGLAND MD [facility] 07-15-2021 11:36-0400 Systolic blood pressure 131 mm[Hg] DR PETR RAGLAND MD [facility] 07-15-2021 11:23-0400 Body temperature 96.98 [degF] DR PETR RAGLAND MD [facility] 07-15-2021 11:23-0400 Diastolic Blood Pressure NBP [address] PETR RAGLAND MD [facility] 07-15-2021 11:23-0400 Mean blood pressure 84 mm[Hg] DR PETR RAGLAND MD [facility] 07-15-2021 11:23-0400 Systolic Blood Pressure NBP [address] PETR RAGLAND MD [facility] 07-15-2021 11:00-0400 Body temperature 98.22 [degF] DR PETR RAGLAND MD [facility] 07-15-2021 10:57-0400 Diastolic Blood Pressure NBP [address] PETR RAGLAND MD [facility] 07-15-2021 10:57-0400 Systolic Blood Pressure NBP [address] PETR RAGLAND MD [facility] 07-15-2021 10:55-0400 Body temperature 98.15 [degF] DR PETR RAGLAND MD [facility] 07-15-2021 10:50-0400 Body temperature 98.06 [degF] DR PETR RAGLAND MD [facility] 07-15-2021 05:55-0400 Body height [address] PETR RAGLAND MD [facility] 07-15-2021 05:55-0400 Body temperature 98.06 [degF] DR PETR RAGLAND MD [facility] 07-15-2021 05:55-0400 Body weight 64.[address] PETR RAGLAND MD [facility] 07-15-2021 05:55-0400 Heart rate 86 /min DR PETR RAGLAND MD [facility] 07-15-2021 05:55-0400 Mean blood pressure 99 mm[Hg] DR PETR RAGLAND MD [facility] 07-08-2021 12:39-0400 Body height [address] PETR RAGLAND MD [facility] 07-08-2021 12:39-0400 Body temperature 97.7 [degF] DR PETR RAGLAND MD [facility] 07-08-2021 12:39-0400 Body weight 66.[address] PETR RAGLAND MD [facility] 07-08-2021 12:39-0400 diastolic 87 mm[Hg] DR PETR RAGLAND MD [facility] 07-08-2021 12:39-0400 Heart rate 103 /min DR PETR RAGLAND MD [facility] 07-08-2021 12:39-0400 systolic 156 mm[Hg] DR PETR RAGLAND MD [facility] Encounters Encounter Date Encounter Type Care Provider Facility Start: 05-21-2023 Telephone encounter Polo gomez DO Work Phone: Hematology/Oncology Procedures Date Procedure Procedure Detail Performing Clinician Start: 05-02-2023 IR CVC TUNNELED DIAL YSIS CATHETER PLACEMENT Joseph. Cochranlauren Work Phone: Start: 03-29-2023 IR CVC TUNNELED DIAL YSIS [employer]HETER PLACEMENT Emmett Work Phone: Start: 03-29-2023 Blood count complete automated Sai Goodwin MD Work Phone: Start: 07-15-[address] PETR RAGLAND MD Plan of Treatment Date Care Activity Detail Author Start: 05-10-2023 End: 05-10-2023 Patient encounter procedure 05/10/2023 9:00 AM EST Office Visit [facility] [address] [place] [address] Hair Issa MD [address] [place] [phone] [facility] Start: 05-03-2023 End: 05-03-2023 Patient encounter procedure 05/03/2023 9:00 AM EST Office Visit [facility] [address] [place] [address] Hair Issa MD [address] [place] [address] [place] [id number] [facility] Start: 05-02-2023 End: 05-02-2023 Patient encounter procedure 05/02/2023 9:00 AM EST Appointment [facility] [address] [place] [address] [facility] Start: 04-09-2023 Advance Directive Discussion Advance Directive Discussion [facility] Start: 04-09-2023 Depression Assessment Depression Assessment [facility] Start: 04-06-2023 End: 04-06-2023 Patient encounter procedure 04/06/2023 9:00 AM EST [facility] [address] [place] [address] Hair Issa MD [address] [place] [address] [place] [id number] [facility] Start: 03-29-2023 End: 03-29-2023 Patient encounter procedure 03/29/2023 8:00 AM EST Appointment [facility] [address] [place] [address] Nitin Welch. [address] [place] [address] [place] [id number] [facility] Start: 03-23-2023 COVID-19 Vaccine ( season) COVID-19 Vaccine ( season) [facility] Start: 12-08-2022 Covid-19 Vaccine ( season) Covid-19 Vaccine ( season) [facility] Start: 12-08-2022 Influenza vaccination Influenza Vaccine (#1) [facility] Start: 06-28-2014 Diabetes Screening Diabetes Screening [facility] Start: 2003 RSV Immunization aged 60 or older (1 - 1-dose 60+ series) RSV Immunization aged 60 or older (1 - 1-dose 60+ series) [facility] Start: 2003 RSV Vaccine (1 - 1-dose 60+ series) RSV Vaccine (1 - 1-dose 60+ series) [facility] Start: 10-16-1993 Shingrix Vaccine (1 of 2) Shingrix Vaccine (1 of 2) [facility] Start: 10-16-1962 DTaP/Tdap/Td Vaccines (1 - Tdap) DTaP/Tdap/Td Vaccines (1 - Tdap) [facility] Start: 10-16-1962 Urine microalbumin profile DTaP,Tdap,Td Vaccine (1 - Tdap) [facility] Start: 10-16-1962 Zoster Vaccines (1 of 2) Zoster Vaccines (1 of 2) [facility] Start: 10-16-1961 Hepatitis C screening Hepatitis C Screening [facility] Start: 1955 Depression Screening Depression Screening [facility] Start: 1943 Lipid panel Lipid Panel [facility] Start: 1943 Medicare Advantage Annual Wellness Visit (AWV) Medicare Advantage Annual Wellness Visit (AWV) [facility] Start: 1943 Screening for osteoporosis Bone Density Scan [facility] Immunizations Immunization Date Immunization Notes Care Provider Fa cili 01-11-2022 influenza virus vacc ine, unspecified formulation Cristine Booker RN [facility] 01-08-2021 SARS-CoV-2 mRNA (tozinameran) vaccine DR PETR RAGLAND MD [facility] 12-29-2020 influenza virus vacc ine, unspecified formulation DR PETR RAGLAND MD [facility] 12-08-2020 influenza virus vacc ine, unspecified formulation DR PETR RAGLAND MD [facility] 07-08-2020 SARS-CoV-2 mRNA (tozinameran) vaccine DR PETR RAGLAND MD [facility] 06-29-2020 SARS-CoV-2 mRNA (tozinameran) vaccine DR PETR RAGLAND MD [facility] 06-08-2020 SARS-CoV-2 mRNA (tozinameran) vaccine DR PETR RAGLAND MD [facility] 12-30-2019 influenza virus vacc ine, unspecified formulation DR PETR RAGLAND MD [facility] 01-01-2019 influenza virus vacc ine, unspecified formulation DR PETR RAGLAND MD [facility] 12-31-2017 influenza virus vacc ine, unspecified formulation DR PETR RAGLAND MD [facility] 12-30-2015 influenza virus vacc ine, unspecified formulation DR PETR RAGLAND MD [facility] 04-28-2013 pneumococcal conjuga te vaccine, [address] PETR RAGLAND MD [facility] 03-15-2011 pneumococcal polysaccharide vaccine, [address] PETR RAGLAND MD [facility] 02-12-2008 influenza virus vacc ine, unspecified formulation Polo Calderón DO Work Phone: [facility] Work Phone: 12-04-2007 pneumococcal polysaccharide vaccine, 23 valent Polo Calderón DO Work Phone: [facility] 03-21-2006 influenza virus vacc ine, unspecified formulation Polo Calderón DO Work Phone: [facility] Payers Date Payer Category Payer Private Health Insurance [id number] 2010 Medicare [id number] 2008 Unknown [employer] PPO OOS [id number] 2008-2023 [id number] [place] [address] PPO [id number] 1945 Unknown [id number] 1945 Unknown [id number] Social History Date Type Detail Facility Start: 06-09-2021 Never smoked t obacco (finding) [facility] Sex Assigned At [facility] Tobacco smoking status [facility] Tobacco smoking consumption unknown [facility] Start: 1945 Sex Assigned At Not on file [facility] Start: 11-23-2021 End: 03-29-2023 Gender identity Not on file [facility] Start: 08-02-2011 End: 03-29-2023 Tobacco smoking status [facility] Ex-smoker [facility] End: 05-27-2000 History of tobacco use Current smoker [facility] End: 05-27-2000 History of tobacco use Cigarette Smoker [facility] Start: 08-02-2011 End: 03-29-2023 Tobacco use and exposure Smokeless tobacco non-user [facility] Start: 03-29-2023 End: 05-02-2023 Alcohol intake Lifetime non-drinker (finding) [facility] Start: 11-23-2021 End: 03-29-2023 History of Social function [facility] Start: 11-23-2021 Alcohol intake Current non-dr electronic imager of alcohol (finding) [facility] Functional Status Date Assessment Result Facility 07-16-2021 Functional Status [facility] 07-16-2021 Functional Status [facility] 07-16-2021 Functional Status [facility] 07-16-2021 Functional Status [facility] 07-16-2021 [facility] 07-16-2021 Functional Status [facility] 07-15-2021 [facility] 07-15-2021 [facility] 07-15-2021 [facility] 07[facility]15-2021 [facility] 07-15-2021 [facility] 07-15-2021 [facility] Mental Status Date Assessment Result Facility 07-16-2021 [facility] 07[facility]15[facility]21 [facility] Clinical Notes 06-24-2007 to 05-24-2023 Telephone Encounter - Jaenne oMsqueda - 05/24/2023 12:25 PM ESTTelephone Encounter - Jaja Ferrer LPN - 05/24/2023 10:37 AM ESTTelephone Encounter - Elyssa Graham - 05/22/2023 8:47 AM EST Note Date & Type Note Facility 05-24-2023 Miscellaneous Notes [facility] with patient Jeanne Jaylin Records printed from [facility] system , chart assembled. PSS please schedule pt. For second opinion DX: multiple myeloma Jaja Ferrer LPN' [facility] Medical records called stating patient requested records to be faxed to Dr. Calderón. Informed that we have access to records, no need to send. Please advise on appointment for 2nd opinion. Patient having records sent to [id number] for 2nd opinion documented in this encounter [facility] 05-02-2023 Nurse Note Alteplase infusion complete. Hemodialysis catheter with both tails with blood draw and flush noted . Reinstalled with heparin to both tails. Discharge instructions given to pt discharged via wheelchair. [facility] 05-02-2023 Nurse Note Alteplase infusion complete. Hemodialysis catheter with both tails with blood draw and flush noted . Reinstalled with heparin to both tails. Discharge instructions given to pt discharged via wheelchair. Resting quietly , denies questions or concerns at this time . IR Procedures: This patient is here from [facility] for a Tunneled HD cath check . She verbalizes understanding of the procedural instructions. Dr. Ho has spoken to her. History, allergies, medications and lab results reviewed. Informed consent signed. Prepped and draped in sterile fashion. Time out was performed. She is on a monitor. Contrast injected and pictures taken.Tolerated the procedure well. documented in this encounter [facility] 05-02-2023 Note IR Procedures: This patient is here from [facility] for a Tunneled HD cath check . She verbalizes understanding of the procedural instructions. Dr. Ho has spoken to her. History, allergies, medications and lab results reviewed. Informed consent signed. Prepped and draped in sterile fashion. Time out was performed. She is on a monitor. Contrast injected and pictures taken.Tolerated the procedure well. [facility] 05-02-2023 Nurse Note Resting quietly , denies questions or concerns at this time . [facility] 05-02-2023 Note PRE-PROCEDURE JUAN LUIS TRACY COMPLETE. [facility] 05-02-2023 Nurse Note IR Procedures: This patient is here from [facility] for a Tunneled HD cath check . She verbalizes understanding of the procedural instructions. Dr. Ho has spoken to her. History, allergies, medications and lab results reviewed. Informed consent signed. Prepped and draped in sterile fashion. Time out was performed. She is on a monitor. Contrast injected and pictures taken.Tolerated the procedure well. [facility] 05-02-2023 Note IVR History & Physic al Inpatient consult to Anesthesiology-- Consult performed by: Shyla Steinberg APRN - [employer] Consult ordered by: Naveen Ho MD Name: Margarita Coleman : 1945 (Age-77 y.o.) Date of Service: Pt seen/examined on 05/02/2023 Procedure Information Date: 05/02/23 Procedure: H&P CONSULT Chief Complaint: ESRD ASSESSMENT/PLAN: Patient is considered low risk for this low risk procedure/surgery with no reducible risk factors. Based on the above evaluation, the benefits of the planned procedure likely exceed the risks. The patient is medically optimized to proceed with the planned procedure without any further cardiopulmonary testing. 1) ESRD - followed by Dr. 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 RN notified History Of Present Illness: We are asked to see/evaluate Margarita Coleman, a 77 y.o. 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 Denies cardiac stents. Denies h/o CVA. 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 HENT: Negative. Eyes: Negative. Respiratory: Negative. Cardiovascular: Negative. Gastrointestinal: Negative. Musculoskeletal: Negative. Skin: Negative. Neurological: Negative. Psychiatric/Behavioral: Negative. All other systems reviewed and are negative. PHYSICAL EXAM: Physical Exam Vitals and nursing note reviewed. Constitutional: Appearance: Normal appearance. HENT: Head: Normocephalic and atraumatic. Eyes: Extraocular Movements: Extraocular movements intact. Conjunctiva/sclera: Conjunctivae normal. Pupils: Pupils are equal, round, and reactive to light. Cardiovascular: Rate and Rhythm: Normal rate and regular rhythm. Heart sounds: Normal heart sounds. Pulmonary: Effort: Pulmonary effort is normal. Breath sounds: Normal breath sounds. Abdominal: General: Bowel sounds are normal. Palpations: Abdomen is soft. Musculoskeletal: Cervical back: Normal range of motion and neck supple. Skin: General: Skin is warm and dry. Neurological: General: No focal deficit present. Mental Status: She is alert and oriented to person, place, and time. Psychiatric: Mood and Affect: Mood normal. Behavior: Behavior normal. Thought Content: Thought content normal. EKG: No results found for this or any previous visit. ECHO and EF: No results found for this or any previous visit. Vitals: Vitals Value Taken Time BP 168/75 05/02/23 0723 Temp 36.4 ?C (97.6 ?F) 05/02/23 0723 Pulse 91 05/02/23 0723 Resp 16 05/02/23 0723 SpO2 99 % 05/02/23 07 BMI Classification: Overweight (BMI 25.0-29.9) Labs: Lab Results Component Value Date WBC 8.2 04/26/2023 HGB 13.5 04/26/2023 HCT 39.8 04/26/2023 MCV 90.6 04/26/2023 PLT 205 04/26/2023 Lab Results Component Value Date NA 137 04/26/2023 K 3.7 04/26/2023 CL 106 04/26/2023 CO2 23 04/26/2023 BUN 30 (H) 04/26/2023 CREATININE 0.91 04/26/2023 GLUCOSE 158 (H) 04/26/2023 CALCIUM 8.8 04/26/2023 Past Medical History: Past Medical History: Diagnosis Date Anemia Anxiety Arthritis Chronic kidney disease Hyperlipidemia Hypertension Multiple myeloma (HCC) 2011 Past Surgical History: Past Surgical History: Procedure Laterality Date BONE MARROW BIOPSY x3 CHOLECYSTECTOMY COLONOSCOPY NASAL SEPTUM SURGERY PARTIAL NEPHRECTOMY Left RENAL BIOPSY TONSILLECTOMY TUBAL LIGATION Medications Prior to Admission: Prior to Admission medications Medication Sig Start Date End Date Taking? Authorizing Provider amLODIPine (Norvasc) 5 MG tablet Take 5 mg by mouth daily. Historical Provider, Cholecalciferol (VITAMIN D3 PO) Take 2 tablets by mouth daily. Historical Provider, clobetasol (Temovate) 0.05 % external solution Apply 1 Application topically 2 times daily. Historical Provider, Multiple Vitamin (multivitamin) capsule Take 1 capsule by mouth three times a week. Historical Provider, Multiple Vitamins-Minerals (PRESERVISION AREDS 2 PO) Take 1 tablet by mouth in the morning and 1 tablet in the evening. Historical Provider, pravastatin (Pravachol) 40 MG tablet Take 40 mg by mouth Nightly. Historical Provider, Allergies: Nsaids Social History: TOBACCO: reports that she quit smoking about 23 years ago. Her smoking use included cigarettes. She has never used smokeless tobacco. ETOH: reports no history of alcohol use. Social History Substance and Sexual (more content not included)... [facility] 05-02-2023 Miscellaneous Notes PRE-PROCEDURE ROUNDING COMPLETE. documented in this encounter [facility] 05-02-2023 Note Formatting of this n ote might be different from the original. PRE-PROCEDURE ROUNDING COMPLETE. [facility] 05-02-2023 Note Formatting of this n ote might be different from the original. PRE-PROCEDURE ROUNDING COMPLETE. [facility] 04-30-2023 Note Formatting of this n ote might be different from the original. Spoke to patient Reviewed arrival time at 0700 am to [facility] on 05/02/23, it is ok to eat a light breakfast and take am medications, and call back # for questions and/or concerns. Directions given for Same Day Surgery. Follow signs around the hospital to Main Entrance which is located at [address] [facility] from [facility]. You may use [employer]. Each patient to receive one validation ticket for [employer]. [facility] 04-30-2023 Miscellaneous Notes Spoke to patient Reviewed arrival time at 0700 am to [facility] on 05/02/23, it is ok to eat a light breakfast and take am medications, and call back # for questions and/or concerns. Directions given for Same Day Surgery. Follow signs around the hospital to Main Entrance which is located at [address] [facility] Turn onto [email or web address] from [facility]. You may use [employer]. Each patient to receive one validation ticket for [employer]. documented in this encounter [facility] 03-29-2023 Note Interventional Radio logy Observation/Recovery: Margarita has completed her procedure (Tunn HD Catheter placement). We removed her IV. She is alert and in no distress. She verbalizes understanding of the discharge instructions. Her Right internal jugular Tunn HD Catheter is sutured in. Dressing is dry and intact. No bleeding. No hematoma. She ambulates with no complaints of lightheadedness. She denies pain. Discharge to home with her . [facility] 03-29-2023 Note IVR History & Physic al Inpatient consult to Anesthesiology-- Consult performed by: Petra Knight APRN - [employer] Consult ordered by: Sai Goodwin MD Name: Margarita Coleman : 1945 (Age-77 y.o.) Date of Service: Pt seen/examined on 03/29/2023 Procedure Information Date: 03/29/23 Procedure: H&P CONSULT Chief Complaint: Elevated serum lambda heavy chains History Of Present Illness: We are asked to see/evaluate Margarita Coleman, a 77 y.o. female for pre-procedure evaluation prior to IR CVC tunneled dialysis catheter placement. Margarita has a history of multiple myeloma diagnosed in 2010. She states she went into remission in 2011. Recently, she has had elevated serum lambda heavy chains. She has had a kidney biopsy and bone marrow biopsy and ruled out recurrent multiple myeloma or monoclonal gammopathy of renal significance. Her oncologist is in [place]. She states the decision was made to pursue plasmapheresis. She is here today to have a tunneled CVC catheter placed for this treatment. Denies exertional chest pain. Denies cardiac stents. Denies h/o CVA. Reports >4 METs - Able to climb a flight of stairs without chest pain ANTICOAGULATION: No CHRONIC STEROID USE: No EKG: No results found for this or any previous visit. ECHO and EF: No results found for this or any previous visit. Vitals: Vitals Value Taken Time BP 163/67 03/29/23 0651 Temp 36.4 ?C (97.5 ?F) 03/29/23 0651 Pulse 74 03/29/23 0651 Resp 16 03/29/23 0651 SpO2 100 % 03/29/23 0651 BMI Classification: Overweight (BMI 25.0-29.9) ASSESSMENT/PLAN: Patient is considered low/intermediate risk for this low risk procedure/surgery with no reducible risk factors. Based on the above evaluation, the benefits of the planned procedure likely exceed the risks. The patient is medically optimized to proceed with the planned procedure without any further cardiopulmonary testing. 1) Abnormality of plasma protein, unspecified [R77.9 (ICD-10-CM)] - followed by Dr. Welch #) HTN - taking amlodipine BP Readings from Last 3 Encounters: 03/29/23 (!) 163/67 #) HLD -taking pravastatin Labs Ordered: YES - Per IVR EKG Ordered: NO REVIEW OF SYSTEMS: Review of Systems Constitutional: Negative for activity change, chills, diaphoresis, fatigue, fever and unexpected weight change. HENT: Negative for congestion and sore throat. Eyes: Negative for visual disturbance. Respiratory: Negative for cough, shortness of breath and wheezing. Cardiovascular: Negative for chest pain, palpitations and leg swelling. Gastrointestinal: Negative for abdominal pain, constipation, diarrhea and vomiting. Genitourinary: Negative for difficulty urinating and hematuria. Musculoskeletal: Negative for back pain and neck pain. Skin: Negative for rash and wound. Neurological: Positive for numbness (BLE neuropathy). Negative for dizziness, tremors, weakness and headaches. Psychiatric/Behavioral: Negative for agitation and behavioral problems. PHYSICAL EXAM: Physical Exam Vitals and nursing note reviewed. Constitutional: General: She is not in acute distress. Appearance: Normal appearance. HENT: Head: Normocephalic and atraumatic. Eyes: Extraocular Movements: Extraocular movements intact. Cardiovascular: Rate and Rhythm: Normal rate and regular rhythm. Pulses: Normal pulses. Heart sounds: Normal heart sounds. Pulmonary: Effort: Pulmonary effort is normal. No respiratory distress. Breath sounds: Normal breath sounds. No wheezing or rales. Abdominal: Palpations: Abdomen is soft. Tenderness: There is no abdominal tenderness. There is no guarding. Musculoskeletal: General: Normal range of motion. Cervical back: Normal range of motion and neck supple. Right lower leg: No edema. Left lower leg: No edema. Skin: General: Skin is warm and dry. Capillary Refill: Capillary refill takes less than 2 seconds. Neurological: General: No focal deficit present. Mental Status: She is alert and oriented to person, place, and time. Sensory: No sensory deficit. Motor: No weakness. Psychiatric: Mood and Affect: Mood normal. Behavior: Behavior normal. Thought Content: Thought content normal. Judgment: Judgment normal. Labs: No results found for: WBC , HGB , HCT , MCV , PLT No results found for: NA , K , CL , CO2 , BUN , CREATININE , GLUCOSE , CALCIUM , PROT , BILITOT , ALKPHOS , AST , ALT , LABGLOM , AGRATIO , GLOB Past Medical History: Past Medical History: Diagnosis Date Anemia Anxiety Arthritis Chronic kidney disease Hyperlipidemia Hypertension Multiple myeloma (HCC) 2011 Past Surgical History: Past Surgical History: Procedure Laterality Date BONE MARROW BIOPSY x3 CHOLECYSTECTOMY COLONOSCOPY NASAL SEPTUM SURGERY PARTIAL NEPHRECTOMY Left RENAL BIOPSY TONSILLECTOMY TUBAL LIGATION Medications Prior to Admission: Prior to Admission medication (more content not included)... [facility] 03-29-2023 Nurse Note Interventional Radiology Observation/Recovery: Margarita has completed her procedure (Tunn HD Catheter placement). We removed her IV. She is alert and in no distress. She verbalizes understanding of the discharge instructions. Her Right internal jugular Tunn HD Catheter is sutured in. Dressing is dry and intact. No bleeding. No hematoma. She ambulates with no complaints of lightheadedness. She denies pain. Discharge to home with her . [facility] 03-29-2023 Nurse Note Interventional Radiology Observation/Recovery: Margarita has completed her procedure (Tunn HD Catheter placement). We removed her IV. She is alert and in no distress. She verbalizes understanding of the discharge instructions. Her Right internal jugular Tunn HD Catheter is sutured in. Dressing is dry and intact. No bleeding. No hematoma. She ambulates with no complaints of lightheadedness. She denies pain. Discharge to home with her . Patient arrived from [facility], Dr. Joss Goodwin was in to speak with the patient regarding tunneled HD cath placement, consent was obtained. Patient was placed supine on exam table prepped and draped in sterile fashion. Telemetry monitors placed, vitals monitored. A [id number] tunneled HD cath was placed. Patient tolerated procedure well. Transferring to IR recovery for discharge home. documented in this encounter [facility] 03-29-2023 Nurse Note Patient arrived from [facility], Dr. Joss Goodwin was in to speak with the patient regarding tunneled HD cath placement, consent was obtained. Patient was placed supine on exam table prepped and draped in sterile fashion. Telemetry monitors placed, vitals monitored. A [id number] tunneled HD cath was placed. Patient tolerated procedure well. Transferring to IR recovery for discharge home. [facility] 03-28-2023 Note Formatting of this n ote might be different from the original. Left message. Reviewed arrival time at 6:00 am to [facility] on 03-29-23. It is ok to have a light breakfast and take your morning medications. Directions given for Same Day Surgery. Follow signs around the hospital to Main Entrance which is located at [address] [facility] [address] Turn onto [address] [facility] from [facility]. You may use [employer]. Each patient to receive one validation ticket for [employer]. [facility] 03-28-2023 Miscellaneous Notes Left message. Reviewed arrival time at 6:00 am to [facility] on 03-29-23. It is ok to have a light breakfast and take your morning medications. Directions given for Same Day Surgery. Follow signs around the hospital to Main Entrance which is located at [address] Turn onto [address] [facility] from [facility]. You may use [employer]. Each patient to receive one validation ticket for [employer]. documented in this encounter [facility] 07-16-2021 Hospital Discharg e instructions Patient Education 07/16/2021 16:26:59 Minimally Invasive Nephrectomy, Care After Minimally Invasive Nephrectomy, Care After This sheet gives you information about how to care for yourself after your procedure. Your health care provider may also give you more specific instructions. If you have problems or questions, contact your health care provider. What can I expect after the procedure? After the procedure, it is common to have: Pain. Soreness and numbness in your incision areas. Follow these instructions at home: Medicines Take vdrz-haw-nxqhpfx and prescription medicines only as told by your health care provider. Avoid using NSAIDs regularly over a long period of time. These include aspirin and ibuprofen. Doing so may damage your remaining kidney. Ask your health care provider if the medicine prescribed to you: ?Requires you to avoid driving or using heavy machinery. ?Can cause constipation. You may need to take these actions to prevent or treat constipation: ?Take zsub-ked-edrwcdk or prescription medicines. ?Eat foods that are high in fiber, such as beans, whole grains, and fresh fruits and vegetables. ?Limit foods that are high in fat and processed sugars, such as fried or sweet foods. Activity Avoid sitting for a long time without moving. Get up to take short walks every 1 2 hours. This is important to improve blood flow and breathing. Ask for help if you feel weak or unsteady. Return to your normal activities as told by your health care provider. Ask your health care provider what activities are safe for you. Do not lift anything that is heavier than 10 lb (4.5 kg), or the limit that you are told, until your health care provider says that it is safe. Do not play contact sports. Doing so may damage your remaining kidney. Incision care Follow instructions from your health care provider about how to take care of your incisions. Make sure you: ?Wash your hands with soap and water before and after you change your bandage (dressing). If soap and water are not available, use hand cloth painter. ?Change your dressing as told by your health care provider. ?Leave stitches (sutures), skin glue, or adhesive strips in place. These skin closures may need to be in place for 2 weeks or longer. If adhesive strip edges start to loosen and curl up, you may trim the loose edges. Do not remove adhesive strips completely unless your health care provider tells you to do that. Check your incision area every day for signs of infection. Check for: ?Redness, swelling, or pain. ?Fluid or blood. ?Warmth. ?Pus or a bad smell. If you have a drain in place, follow your health care provider's instructions for drain care. This may include emptying the drain and keeping track of the amount of drainage. General instructions Do not take baths, swim, or use a hot tub until your health care provider approves. Ask your health care provider if you may take showers. You may only be allowed to take sponge baths. Drink enough fluid to keep your urine pale yellow. Keep all follow-up visits as told by your health care provider. This is important. Contact a health care provider if you have: A fever or chills. Pain that is not controlled by your pain medicine. Redness, swelling, or pain at your incision site. A bad smell coming from the wound or dressing. Blood in your urine. Not had a bowel movement in 3 days. Get help right away if you have: Trouble breathing or feel short of breath. Warmth, redness, and tenderness in your leg. Fluid, blood, or pus coming from an incision. Summary Return to your normal activities as told by your health care provider. Ask your health care provider what activities are safe for you. Follow instructions from your health care provider about how to take care of your incisions. Check your incision area every day for signs of infection. Take qrjd-xbz-jiwtkky and prescription medicines only as told by your health care provider. Keep all follow-up visits as told by your health care provider. This is important. This information is not intended to replace advice given to you by your health care provider. Make sure you discuss any questions you have with your health care provider. Document Released: 12/15/2015 Document Revised: 04/22/2019 Document Reviewed: 04/22/2019 [employer] Patient Education 2020 [employer]. 07/16/2021 16:26:00 Pain Relief Before and After Surgery Pain Relief Before and After Surgery Pain relief is an important part of your overall care before, during, and after surgery. You and your health care provider will work together to make a plan to manage pain that you have before surgery (preoperative) and after surgery (postoperative). Addressing pain before surgery lessens the pain that you will have after surgery. Make sure that you fully understand and agree with your pain relief plan. If you have questions or concerns, it is important to discuss them with your health care provider. If you have pain that is not controlled by medicine, tell your health care provider. Severe pain after surgery may: Prevent sleep. Decrease your ability to breathe deeply and to cough. This can result in pneumonia or upper airway infections. Cause your heart to beat more quickly. Cause your blood pressure to be higher. Increase your risk for stomach and digestive problems. Slow down wound healing. Lead to depression, anxiety, and feelings of helplessness. Your health care provider may use more than one method at a time to help relieve your pain. Using this approach may allow you to eat, move around, and possibly leave the hospital sooner. What are options for managing pain before and after surgery? Oral pain medicines Pain medicines taken by mouth (orally) include: Non-narcotic medicines: ?Acetaminophen. ?NSAIDs, such as ibuprofen and naproxen. Muscle relaxants. These may relieve pain caused by muscle spasms. Anticonvulsants. These medicines are usually used to treat seizures. They may help to lessen nerve pain. Opioids. These medicines relieve pain by binding to pain receptors in the brain and spinal cord (narcotic pain medicines). Opioids may help relieve short-term (acute) postoperative pain that is moderate to moderately severe. ?Opioids are often combined with non-narcotic medicines to improve pain relief, lower the risk of side effects, and lower the chance of addiction. ?To help prevent addiction, opioids are given for short periods of time in careful doses. If you follow instructions from your health care provider and you do not have a history of substance abuse, your risk of becoming addicted to opioids is low. Some of these medicines may be available in injectable form. They may be given through an IV if you are unable to eat or drink. As-needed pain control You can receive pain medicine when you need it, through an IV or as a pill or liquid. When you tell your health care provider that you are having pain, he or she will give you the proper pain medicine. Medicine that numbs an area You may be given pain medicine that numbs an area (local anesthetic): As an injection near your painful area (local infiltration). As an injection near the nerve that provides feeling to a specific part of your body (peripheral nerve block). As an injection in your spine (spinal block). Through a local anesthetic reservoir pump. For this method, one or more catheters are inserted into your incision at the end of your procedure. These catheters are connected to a device that is filled with a non-narcotic pain medicine. Medicine gradually empties into your incision area over the next several days. Continuous epidural pain control With this method, you receive pain medicine through a small, thin tube (catheter) that is inserted into your back, near your spinal cord. Medicine flows through the catheter to lessen pain in areas of your body that are below the catheter. The catheter is usually put into the back shortly before surgery. It may be left in until you can eat, take medicine by mouth, pass urine, and have a bowel movement. This method may be recommended if you are having surgery on your abdomen, hip area, or legs. This method of pain relief may help you heal faster because you may be able to do these things sooner: Regain normal bowel and bladder function. Return to eating. Get up and walk. IV patient-controlled analgesia (ACCOUNT RESOLUTION ANALYST) pump With this method, you receive pain medicine through an IV that is connected to a ACCOUNT RESOLUTION ANALYST pump. The ACCOUNT RESOLUTION ANALYST pump gives you a specific amount of medicine when you push a button. This lets you control how much medicine you receive. You are the only person who should push this button. The pump is set up so that you cannot accidentally give yourself too much medicine. You will be able to start using your ACCOUNT RESOLUTION ANALYST pump in the recovery room after your procedure. Tell your health care provider: If you are having too much pain. If you cannot push the button. If you are feeling too sleepy or nauseous. Other pain control methods Other methods of pain relief after surgery include: Heat and cold therapy. Massage. Topical analgesics. These are patches, creams, and gels that can be applied on the skin. Steroid medicines. These medicines may be given to lessen swelling. Physical therapy. A physical therapist will work with you to meet goals, such as feeling and functioning better. Physical therapy usually includes specific exercises that are tailored to your needs. Transcutaneous electrical nerve stimulation (TENS). This method sends electrical signals through the skin to interrupt pain signals. Cognitive behavioral therapy (CBT). This therapy helps you learn coping skills for dealing with pain. What are some questions to ask my health care provider? What pain relief options would be best for me? What are the risks of each option? What are the benefits of each option? How long will I need pain relief after surgery? Summary A plan to manage pain that you may have before surgery (preoperative) and after surgery (postoperative) is an important part of your overall care. Pain management options include medicines and non-medical therapies, such as physical therapy, massage, and heat or cold therapy. Pain management medicines include opioids and non-narcotic medicines such as NSAIDs, steroids, or local anesthetics. Pain medicines can have side effects. Side effects of opioids include constipation, nausea, excessive sleepiness, and risk of addiction. Your health care provider will work with you to prevent or manage these side effects and risks. This information is not intended to replace advice given to you by your health care provider. Make sure you discuss any questions you have with your health care provider. Document Released: 06/16/2003 Document Revised: 03/29/2018 Document Reviewed: 07/06/2017 [employer] Patient Education 2020 [employer] Follow Up Care 06/13/2021 14:55:00 With:PETR RAGLAND MD, [facility], Urology Service Address: [address] [place] [address] [address] [place] [phone] When:1-2 days Comments:Office will call to schedule follow up appointment [facility] 07-08-2021 Evaluation + Plan note Future Appointments Diagnostic Tests PendingComplete Blood Count 07/08/21 [facility] 06-09-2021 Evaluation + Plan note Future Scheduled TestsBasic Metabolic Panel 06/09/21Complete Blood Count 06/09/21 [facility] documented as of this encounter (statuses as of 05/24/2023) [facility] Evaluation + Plan note Future Appointments Appointment Date:08/11/2022 01:00:00 PM Scheduled Provider:PETR RAGLAND MD Location:UROLOGY Appointment Type:URO OV Future Scheduled Tests Laboratory* Complete Metabolic Panel 08/08/22 Radiology* XR Chest 2 Views (PA & Lateral) 08/08/22 * CT Renal 08/08/22 [facility] Evaluation note* Diagnosis Abnormality of plasma protein, unspecified documented in this encounter [facility] Diagnosis Other specified disorders involving the immune mechanism, 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 * Dialysis Catheter (Nauruan) * Hemodialysis (Nauruan) * Dialysis Catheter Discharge Instructions (Nauruan) [facility] No data available for this section [facility] Summary Purpose Family History No Family History Records FoundNo Family History Records FoundNo Family History Records FoundNo Family History Records Found Advance Directives No Advanced Directives Records FoundDocuments on File Type Date Recorded Patient Account Director Expl anation Advance Directives and Livin g Will 04/03/2023 12:00 PM Documents on File Type Date Recorded Patient Account Director Expl anation Advance Directives and Livin g Will 04/03/2023 12:00 PM Reason for Referral Specialty Diagnoses / Procedures Referred By Contac t Referred To Contact Radiology Diagnoses Other specified disorders involving the immune mechanism, 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 [address] [place] [address] Referral ID Status Reason Start Date Expiration Date Visits Re quested Visits Authorized [id number] Closed 04/27/2023 04/26/2024 1 1 Specialty Diagnoses / Procedures Referred By Contac t Referred To Contact Radiology Diagnoses Abnormality of plasma protein, unspecified Procedures IR CVC tunneled dialysis catheter placement Nitin Welch. [address] [place] [address] Referral ID Status Reason Start Date Expiration Date Visits Re quested Visits Authorized [id number] Closed 03/19/2023 03/18/2024 1 1 Additional Source Comments INFORMATION SOURCE (unrecogn ized section and content) DATE CREATED AUTHOR AUTHOR'S ORGANIZ ATION 07/15/2022 [facility] ([place]) DATE CREATED AUTHOR AUTHOR'S ORGANIZ ATION 05/14/2023 [facility] DATE CREATED AUTHOR AUTHOR'S ORGANIZ ATION 05/26/2023 [facility] Care Team (unrecognized sect ion and content) Dog Track Kennel Manager Relationship Specialty Start Date End Date Polo Gerard MD [address] [facility] [address] [place] [phone] PCP - General Family Medicine 03/19/23 Dog Track Kennel Manager Relationship Specialty Start Date End Date Polo Gerard MD [address] [facility] [address] [place] [phone] PCP - General Family Medicine 03/19/23 Dog Track Kennel Manager Relationship Specialty Start Date End Date Polo Gerard MD [address] [place] [phone] PCP - General Family Medicine 03/19/23 Reason for Visit (unrecogniz ed section and content) Referral ID Status Reason Start Date Expiration Date Visits Re quested Visits Authorized [id number] Closed 03/19/2023 03/18/2024 1 1 Specialty Diagnoses / Procedures Referred By Contac t Referred To Contact Radiology Diagnoses Other specified disorders involving the immune mechanism, 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 [address] [place] [address] Referral ID Status Reason Start Date Expiration Date Visits Re quested Visits Authorized [id number] Closed 04/27/2023 04/26/2024 1 1 Reason Comments Second Opinion Source Comments (unrecognize d section and content) In the event this informatio n is protected by the Federal Confidentiality of Alcohol and Drug Abuse Patient Records regulations: The Federal rules restrict any use of the information to criminally investigate or prosecute any alcohol or drug abuse patient.[facility] FOR RECORDS PERTAINING TO PATIENTS WHO ARE OR HAVE BEEN ENROLLED IN A CHEMICAL DEPENDENCY/SUBSTANCEABUSE PROGRAM, SOME INFORMATION MAY BE OMITTED. This clinical summary was aggregated from multiple sources. Caution should be exercised in using it in the provision of clinical care. This summary normalizes information from multiple sources, and as a consequence, information in this document may materially change the coding, format and clinical context of patient data. In addition, data may be omitted in some cases. CLINICAL DECISIONS SHOULD BE BASED ON THE PRIMARY CLINICAL RECORDS. [facility]. provides no warranty or guarantee of the accuracy or completeness of information in this document.
== END | disposition home or self-care (01) ==
LOC: LAB 13:03
PROVIDERS: PCP Family Medicine; Referring Provider Internal Medicine Nephrology; Visit Provider Internal Medicine Nephrology
DX: N18.31 Chronic kidney disease, stage 3a (principal)
CPT/HCPCS: 36415; 80048; 82570; 84156

== ENCOUNTER → 2023-06-20 | Outpatient (CLI) | payer MEDICARE, SELFPAY | END | disposition home or self-care (01) | LOC: LABSPEC 12:15 | PROVIDERS: PCP Family Medicine; Referring Provider Specialist; Visit Provider Specialist | DX: C90.00 Multiple myeloma not having achieved remission (principal) | CPT/HCPCS: 86850; 86900; 86901 ==

== ENCOUNTER → 2023-10-23 | Outpatient (CLI) | payer MEDICARE, SELFPAY ==
--- NOTE | 2023-10-23 09:37 | BI_ITS ---
MAMMOGRAPHY - BILATERAL SCREENING REASON FOR EXAM: Female, 78 years old. Routine annual screening examination. PERTINENT HISTORY: Aunts with breast cancer. TECHNIQUE: Digital bilateral breast waqas (3D mammographic acquisition) in the CC and MLO projections. 2-D mediolateral oblique (MLO) and craniocaudad (CC) views of both breasts were obtained. CAD: Full Field Digital Mammography with Computer Added Detection was performed. COMPARISON: Comparison is made with prior study dated October 19, 2022. FINDINGS: Breast Composition: There are scattered areas of fibroglandular density. There are no dominant masses or suspicious calcifications. No other significant abnormalities are identified. There has been no significant change since the prior study. BI/SCRN MAMM (CAD)W/WAQAS BILAT IMPRESSION: Stable bilateral screening mammogram. Yearly follow-up mammogram recommended. (A) ASSESSMENT CATEGORY: BIRADS Category 1: Negative. A letter regarding these results will be sent to the patient by the facility within 30 days. Approximately 10% of breast cancers are not detected by mammography. A normal mammogram should not delay biopsy of a clinically suspicious abnormality. [id number] Electronically Signed: Amandeep Porter MD at 11:09 EDT ,
== END | disposition home or self-care (01) ==
LOC: OPBI 09:35
PROVIDERS: PCP Family Medicine; Referring Provider Family Medicine; Visit Provider Family Medicine
DX: Z12.31 Encounter for screening mammogram for malignant neoplasm of breast (principal); Z80.3 Family history of malignant neoplasm of breast
CPT/HCPCS: 77063; 77067

== ENCOUNTER 2023-11-15 20:08 | Emergency (ER) | payer MEDICARE, SELFPAY ==
[2023-11-15 20:08] VITALS: BP 157/74; PULSE 92; RESP 16; TEMP 36.6; O2SAT 100
[2023-11-15 21:09] VITALS: BMI 28.4
--- NOTE | 2023-11-15 22:45 | RAD_ITS ---
STUDY: X-RAY - LEFT TIBIA AND FIBULA REASON FOR EXAM: Female, 78 years old. Injury TECHNIQUE: Frontal and lateral view(s) of the tibia and fibula were obtained. COMPARISON: None. FINDINGS: There is demineralization of the tibia. There is demineralization of the fibula. There is no demonstrated acute fracture. The soft tissue structures are unremarkable. RAD/Tibia & Fibula 2 Views IMPRESSION: Demineralization of the osseous structures. Electronically Signed: Oren Santos MD at 23:24 EDT ,
[2023-11-15] MEDS: Diphth,Pertuss(Acell),Tet Vac 0.5 ML Vial IM (22:51)
[2023-11-15] MEDS: Amox/Clavulanate 875 MG Tablet PO (22:53)
--- NOTE | 2023-11-15 23:39 | EDS_ITS ---
HPI History of Present Illness Chief Complaint: Bite Informant: patient and family Narrative Narrative: Patient is 78-year-old female with past medical history of hypertension chronic kidney disease and multiple myeloma who reports she is receiving chemotherapy. She states this evening she was outside when a neighbors dog came up and bit her in the left lower leg. She denies any other injury. She states she sustained multiple bite/lacerations to the lower leg and has concern that these may need closed or put on antibiotics. She also has concern for trauma to the bone as her leg is swollen and painful to touch and difficult to walk on and secondary to this she was brought in for evaluation. [facility] Medical History Former smoker Mixed incontinence Other urethral stricture, female Wears glasses Cancer Arthritis History of renal disease Easy bruising High cholesterol Blood disorder Chronic cholecystitis Renal cyst, acquired, left Cyst of left kidney Hemorrhoid HTN (hypertension) Gallstones Tendinitis of left foot Macular degeneration Osteoporosis Kidney disease Anemia Home Medications ?Medication ?Instructions ?Recorded ?Last Taken ?Type cholecalciferol (vitamin D3) 25 2,000 unit PO DAILY 04/18/15 12/04/21 08:00 History mcg (1,000 unit) tablet amlodipine 5 mg tablet 5 mg PO DAILY 11/07/16 12/05/21 08:00 History pravastatin 40 mg tablet 40 mg PO QHS 06/12/17 12/04/21 22:00 History multivitamin (Daily Multi-Vitamin 1 tab PO DAILY 01/01/23 Unknown History tablet) vitamins A,C,K-fras-huwzjz 2,148 2 tab PO BID 01/01/23 Unknown History mcg-113 mg-45 mg-17.4 mg tablet (Eye Multivitamin) amoxicillin 875 mg-potassium 1 tab PO BID 10 days #20 tabs 11/15/23 Unknown Rx clavulanate 125 mg tablet oxycodone-acetaminophen 5 mg-325 1 tab PO Q6H PRN pain 3 days #12 11/15/23 Unknown Rx mg tablet (Percocet) tabs Allergy/AdvReac Type Severity Reaction Status Date / Time NSAIDS (Non-Steroidal AdvReac Severe Other Verified 11/15/23 20:08 Anti-Inflamma Family History Father Hypertension Heart disease Mother Hypertension Surgical History H/O cataract H/O partial nephrectomy History of cholecystectomy History of colonoscopy History of esophagogastroduodenoscopy (EGD) History of nasal surgery History of tonsillectomy History of tubal ligation History of wisdom tooth extraction Social History Smoking Status: Former smoker ROS ROS ED Constitutional Constitutional ED: Denies chills or fever(s) ENT ENT ED: Denies sore throat Cardiovascular Cardiovascular: Denies chest pain Respiratory/Chest Respiratory/Chest: Denies cough or dyspnea Gastrointestinal Gastrointestinal: Denies abdominal pain, diarrhea, nausea or vomiting Genitourinary Genitourinary ED: Denies dysuria Musculoskeletal Musculoskeletal: Reports other Details: Positive left lower leg swelling and pain Integumentary Reports other Details: Positive dog bite left lower leg Neurologic Neurologic: Denies headache(s) or paresthesias Hematologic/Lymphatic Hematologic/Lymphatic: Denies easy bleeding or easy bruising EXAM Physical Exam Const Vital Signs: 11/15/23 20:08 Temperature 97.8 F Temperature Source Temporal Pulse Rate 92 Respiratory Rate 16 Blood Pressure 157/74 H Blood Pressure Mean 101 Pulse Ox 100 Oxygen Delivery Method Room Air Positive well nourished and well developed General Appearance ED: well developed HEENT HEENT Narrative: Normocephalic atraumatic Eyes PERRL and EOMs intact bilaterally Neck supple Resp normal respiratory effort and clear to auscultation bilaterally Cardio regular rate and regular rhythm Extremity Extremity Narrative: Left lower extremity is neurovascularly intact. Patient has soft tissue swelling with ecchymosis to the middle third of the left tibia/fibula. There are 3 associated dog bites with this. 2 are located along the anterior medial surface of the tibia. These wounds are slightly triangular in shape roughly 1 cm in size and dermal layer deep with minimal ooze of blood. There is a third laceration that is curvilinear along the posterior left calf. This wound is also dermal layer deep with minimal ooze of blood. This wound is roughly 2 cm in length. There is no retained foreign body. No signs of ligamentous or tendon injury. There is surrounding ecchymosis consistent with bite but no erythema or warmth to suggest infection. Neuro oriented x3, CN's II-XII intact bilaterally and no sensory deficits noted Sensorium / Orientation: alert Motor Exam: strength 5/5 throughout Psych mental status grossly normal Skin Skin Narrative: Soft tissue swelling with ecchymosis and laceration/dog bite to the left lower leg as documented above MDM MDM MDM Narrative Medical decision making narrative: Patient presented to the ER mildly hypertensive otherwise with stable vitals. She had multiple injuries/dog bites to the left lower leg from a dog however this dog is known and can be watched and therefore there is no need for rabies vaccination or immunoglobulin. Her tetanus status was updated. The wounds are only dermal layer deep without retained foreign body or arterial bleeding so there is no need for closure. However as patient has higher risk for infection based on her immunosuppression for multiple myeloma and the fact she was bitten by dog she will be started on prophylactic antibiotics. An x-ray was obtained to ensure there is no signs of tibia/fibular fracture or retained foreign body and revealed no such findings. Therefore at this time as patient does not have signs of systemic infection and there is no need for wound closure and there is no signs of arterial bleeding or bony injury she is otherwise safe for discharge History & Record Review Discussion w/independent historian: Patient and Family Radiography Diagnostic Testing: Clinical Impression(s) from Imaging Studies Tibia/Fibula X-Ray 11/15/23 22:45 IMPRESSION: Demineralization of the osseous structures. Electronically Signed: Oren Santos MD at 23:24 EDT Reading Location ID and State: [address] [place] [address] , Service support , X-ray of the left tibia/fibula as interpreted by the emergency medicine physician reveals osteopenia changes without acute fracture dislocation or retained foreign body Discharge Plan Triage Chief Complaint: Bite ED Provider: Elvis Segal Dx/Rx/DC Orders Clinical Impression: Dog bite of left lower leg, Chronic renal disease, stage II, Multiple myeloma, HTN (hypertension) Instructions: ED Dog Bite Prescriptions: New amoxicillin-pot clavulanate 875-125 mg tablet 1 tab PO BID 10 Days Qty: 20 0RF oxycodone-acetaminophen [Percocet] 5-325 mg tablet 1 tab PO Q6H PRN (Reason: pain) 3 Days Qty: 12 0RF No Action cholecalciferol (vitamin D3) 1,000 UNIT tablet 2,000 unit PO DAILY Patient Comments: supplement amlodipine 5 MG tablet 5 mg PO DAILY pravastatin 40 MG tablet 40 mg PO QHS multivitamin [Daily Multi-Vitamin] Tablet 1 tab PO DAILY Eye Multivitamin 2,148 mcg-113 mg-45 mg-17.4mg tablet 2 tab PO BID Rx Instructions: administer with AM and PM meals Primary Care Provider: Polo Fuentes Referrals: Polo Fuentes MD [Primary Care Provider] - Activity Restrictions/Additional Instructions: If you develop a fever or you feel like your wound is becoming infected despite taking the antibiotic please return for repeat evaluation. Print Language: Albanian Disposition Disposition: Home, Self Care
[2023-11-15] MEDS: oxyCODONE 5 MG Tablet PO (23:55)
[2023-11-16 00:07] VITALS: BP 153/59; PULSE 78; RESP 15; TEMP 37; O2SAT 99
== END 2023-11-16 00:08 | disposition home or self-care (01) ==
PROVIDERS: Emergency Provider Emergency Medicine; PCP Family Medicine; Visit Provider Emergency Medicine
DX: S81.852A Open bite, left lower leg, initial encounter (principal); C90.00 Multiple myeloma not having achieved remission; W54.0XXA Bitten by dog, initial encounter; Y93.89 Activity, other specified; N18.2 Chronic kidney disease, stage 2 (mild); I12.9 Hypertensive chronic kidney disease with stage 1 through stage 4 chronic kidney disease, or unspecified chronic kidney disease; Z87.891 Personal history of nicotine dependence; Z23 Encounter for immunization
CPT/HCPCS: 73590; 90471; 90715; 99284

== ENCOUNTER 2023-11-30 12:04 | Emergency (ER) | payer MEDICARE, SELFPAY ==
[2023-11-30 12:05] VITALS: BP 129/68; PULSE 62; RESP 16; TEMP 37.4; O2SAT 98; BMI 24.5
--- NOTE | 2023-11-30 12:15 | RAD_ITS ---
INDICATION: Anterior/sternal CP, Hx, multiple myeloma EXAMINATION/TECHNIQUE: X-RAY - XR Chest 2 Views COMPARISON: May 09, 2020 FINDINGS: LINES/DEVICES: None. LUNGS: There is a small right pleural effusion. No pneumothorax. MEDIASTINUM AND CARDIOVASCULAR STRUCTURES: There is cardiomegaly. Central airways and mediastinal contour are unremarkable. BONES AND SOFT TISSUES: Unremarkable. RAD/Chest PA and Lateral IMPRESSION: Small right pleural effusion, cannot exclude associated left basilar consolidation. Cardiomegaly Electronically Signed: Ginger Crane MD at 13:19 EDT ,
[2023-11-30 12:28] LABS: Absolute Lymphocyte Count 0.91 X10^3/uL (0.83-4.51); Absolute Neutrophil Count 6.3 X10^3/uL (2.0-7.7); Basophil# 0.02 X10^3/uL; Basophil% 0.3 % (0-1); Hematocrit 32.2 % (37-47); Hemoglobin 10.7 g/dL (12.0-15.0); Lymphocyte # 0.91 X10^3/ul (0.83-4.51); Lymphocyte % 11.5 % (19-41); Mean Corp Hgb Conc 33.2 g/dL (32-36); Mean Corpuscular Hgb 30.7 pg (27.0-32.0); Mean Corpuscular Volume 92.3 fL (81-99); Monocyte# 0.57 X10^3/uL; Monocyte% 7.2 % (0-10); NRBC Flagged by Analyzer 0 % (0-5); Neutrophil # 6.26 X10^3/uL (2.7-7.7); Neutrophil % 79.1 % (47-70); Platelet Count 228 K/mm3 (150-450); RBC Distribution Width SD 53.7 fl (35.1-43.9); Red Blood Count 3.49 M/mm3 (4.2-5.4); White Blood Count 7.9 K/mm3 (4.4-11.0)
[2023-11-30 12:47] LABS: Anion Gap 8 (5-15); BUN 16 mg/dL (7-18); BUN/Creat Ratio 7.9 RATIO (10-20); Calcium,Total 8.4 mg/dL (8.5-10.1); Chloride 105 mmol/L (98-107); Creatinine, Serum 2.02 mg/dL (0.55-1.02); EST Glomerular Filtration Rate 25 mL/min (>60); Est Glom Filt Rate - Afr Amer 31 mL/min (>60); Glucose 172 mg/dL (74-106); Potassium 2.9 mmol/L (3.5-5.1); Sodium Level 136 mmol/L (136-145)
[2023-11-30 13:05] VITALS: BP 133/67; RESP 18
--- NOTE | 2023-11-30 13:11 | EDS_ITS ---
HPI History of Present Illness Chief Complaint: Chest Pain Detail of Chief Complaint: Chest pain over the body of the sternum Informant: patient Onset/Context/Timing Onset: Today Activity at onset: unknown Timing: Intermittent Quality: Positive for - (Pain) Location: - (Body of the sternum) Current Severity: Gone Maximum Severity: Severe Worsened By: Palpation; Not Worsened By Exertion, Movement of Arm, Movement of Torso, Eating or Breathing Relieved By: - (Not pushing on it) Associated Symptoms: Negative for Nausea, Vomiting, Diaphoresis, Dyspnea, Cough, Fever, Lightheadedness, Acid Reflux or Palpitations Narrative Narrative: Patient is an 78-year-old woman. She has history of both myeloma. Her gas worker/oncologist sent her to the emergency room because of chest pain. She localizes the pain over the body of the sternum. The pain is worse with palpation. Patient denies dyspnea, dyspnea exertion, orthopnea or PND. Patient reports 1 episode of vomiting and diarrhea earlier this morning. [facility] Medical History Former smoker Mixed incontinence Other urethral stricture, female Wears glasses Cancer Arthritis History of renal disease Easy bruising High cholesterol Blood disorder Chronic cholecystitis Renal cyst, acquired, left Cyst of left kidney Hemorrhoid HTN (hypertension) Gallstones Tendinitis of left foot Macular degeneration Osteoporosis Kidney disease Anemia Home Medications ?Medication ?Instructions ?Recorded ?Last Taken ?Type cholecalciferol (vitamin D3) 25 2,000 unit PO DAILY 04/18/15 12/04/21 08:00 History mcg (1,000 unit) tablet amlodipine 5 mg tablet 5 mg PO DAILY 11/07/16 12/05/21 08:00 History pravastatin 40 mg tablet 40 mg PO QHS 06/12/17 12/04/21 22:00 History multivitamin (Daily Multi-Vitamin 1 tab PO DAILY 01/01/23 Unknown History tablet) vitamins A,C,J-uamr-iifexl 2,148 2 tab PO BID 01/01/23 Unknown History mcg-113 mg-45 mg-17.4 mg tablet (Eye Multivitamin) amoxicillin 875 mg-potassium 1 tab PO BID 10 days #20 tabs 11/15/23 Unknown Rx clavulanate 125 mg tablet oxycodone-acetaminophen 5 mg-325 1 tab PO Q6H PRN pain 3 days #12 08/08/24 Unknown Rx mg tablet (Percocet) tabs lenalidomide 20 mg capsule PO 11/30/23 Unknown History Allergy/AdvReac Type Severity Reaction Status Date / Time NSAIDS (Non-Steroidal AdvReac Severe Other Verified 11/30/23 12:05 Anti-Inflamma Family History Father Hypertension Heart disease Mother Hypertension Surgical History H/O cataract H/O partial nephrectomy History of cholecystectomy History of colonoscopy History of esophagogastroduodenoscopy (EGD) History of nasal surgery History of tonsillectomy History of tubal ligation History of wisdom tooth extraction Social History Smoking Status: Former smoker EXAM Physical Exam Const Vital Signs: 11/30/23 12:05 11/30/23 12:05 Temperature 99.3 F H Temperature Source Temporal Pulse Rate 62 Respiratory Rate 16 Respiratory Effort Normal Blood Pressure 129/68 H Blood Pressure Mean 88 Pulse Ox 98 Oxygen Delivery Method Room Air MDM MDM Lab Data Labs: Laboratory Results - last 24 hr 11/30/23 12:21 WBC 7.9 RBC 3.49 L Hgb 10.7 L Hct 32.2 L MCV 92.3 MCH 30.7 MCHC 33.2 RDW Std Deviation 53.7 H RDW Coeff of Aurelia 16.0 H Plt Count 228 MPV 12.0 Immature Gran % (Auto) 1.900 H Neut % (Auto) 79.1 H Lymph % (Auto) 11.5 L [place] % (Auto) 7.2 Eos % (Auto) 0.0 Baso % (Auto) 0.3 Absolute Neuts (auto) 6.3 Absolute Lymphs (auto) 0.91 Nucleated RBC % 0 Sodium 136 Potassium 2.9 L Chloride 105 Carbon Dioxide 23.0 Anion Gap 8 BUN 16 Creatinine 2.02 H Estim Creat Clear Calc 19.10 Est GFR (MDRD) Af Amer 31 L Est GFR (MDRD) Non-Af 25 L BUN/Creatinine Ratio 7.9 L Glucose 172 H Calcium 8.4 L Discharge Plan Triage Chief Complaint: Chest Pain ED Provider: SpragueBarrie Dx/Rx/DC Orders Prescriptions: No Action cholecalciferol (vitamin D3) 1,000 UNIT tablet 2,000 unit PO DAILY Patient Comments: supplement amlodipine 5 MG tablet 5 mg PO DAILY pravastatin 40 MG tablet 40 mg PO QHS multivitamin [Daily Multi-Vitamin] Tablet 1 tab PO DAILY Eye Multivitamin 2,148 mcg-113 mg-45 mg-17.4mg tablet 2 tab PO BID Rx Instructions: administer with AM and PM meals amoxicillin-pot clavulanate 875-125 mg tablet 1 tab PO BID 10 Days Qty: 20 0RF oxycodone-acetaminophen [Percocet] 5-325 mg tablet 1 tab PO Q6H PRN (Reason: pain) 3 Days Qty: 12 0RF lenalidomide 20 mg capsule PO Primary Care Provider: Polo Fuentes Referrals: Polo Fuentes MD [Primary Care Provider] - Print Language: Croatian
--- NOTE | 2023-11-30 13:11 | ED.VIS.CHEST ---
HPI History of Present Illness Chief Complaint: Chest Pain Detail of Chief Complaint: Chest pain over the body of the sternum Informant: patient Onset/Context/Timing Onset: Today Activity at onset: unknown Timing: Intermittent Quality: Positive for - (Pain) Location: - (Body of the sternum) Current Severity: Gone Maximum Severity: Severe Worsened By: Palpation; Not Worsened By Exertion, Movement of Arm, Movement of Torso, Eating or Breathing Relieved By: - (Not pushing on it) Associated Symptoms: Negative for Nausea, Vomiting, Diaphoresis, Dyspnea, Cough, Fever, Lightheadedness, Acid Reflux or Palpitations Narrative Narrative: Patient is an 78-year-old woman. She has history of both myeloma. 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 She localizes the pain over the body of the sternum. The pain is worse with palpation. Patient denies dyspnea, dyspnea exertion, orthopnea or PND. Patient reports 1 episode of vomiting and diarrhea earlier this morning. There was no hematemesis, melena or medic easier. She denied mucus in the diarrhea. She has had no ill contacts. She denies fever or chills. Prior Similar Symptoms: No Recent Illness/Hospitalization: No CVD Risk Factors: Positive for Hypertension; Negative for Diabetes, Hypercholesterolemia, Family History 1' </=55 or Smoking PE Risk Factors: Positive for Cancer; Negative for Recent Travel/Surgery, Recent Immobilization, Prior DVT or PE or OCP + Smoking + >/=35 TAD Risk Factors: Positive for Hypertension; Negative for Marfan's Syndrome or Family History [facility] Medical History Former smoker Mixed incontinence Other urethral stricture, female Wears glasses Cancer Arthritis History of renal disease Easy bruising High cholesterol Blood disorder Chronic cholecystitis Renal cyst, acquired, left Cyst of left kidney Hemorrhoid HTN (hypertension) Gallstones Tendinitis of left foot Macular degeneration Osteoporosis Kidney disease Anemia Home Medications ?Medication ?Instructions ?Recorded ?Last Taken ?Type cholecalciferol (vitamin D3) 25 2,000 unit PO DAILY 04/18/15 12/04/21 08:00 History mcg (1,000 unit) tablet amlodipine 5 mg tablet 5 mg PO DAILY 11/07/16 12/05/21 08:00 History pravastatin 40 mg tablet 40 mg PO QHS 06/12/17 12/04/21 22:00 History multivitamin (Daily Multi-Vitamin 1 tab PO DAILY 01/01/23 Unknown History tablet) vitamins A,C,Q-ligf-nlslho 2,148 2 tab PO BID 01/01/23 Unknown History mcg-113 mg-45 mg-17.4 mg tablet (Eye Multivitamin) amoxicillin 875 mg-potassium 1 tab PO BID 10 days #20 tabs 11/15/23 Unknown Rx clavulanate 125 mg tablet oxycodone-acetaminophen 5 mg-325 1 tab PO Q6H PRN pain 3 days #12 11/15/23 Unknown Rx mg tablet (Percocet) tabs lenalidomide 20 mg capsule PO 11/30/23 Unknown History Allergy/AdvReac Type Severity Reaction Status Date / Time NSAIDS (Non-Steroidal AdvReac Severe Other Verified 11/30/23 12:05 Anti-Inflamma Family History Father Hypertension Heart disease Mother Hypertension Surgical History H/O partial nephrectomy History of colonoscopy History of nasal surgery History of cholecystectomy History of wisdom tooth extraction History of esophagogastroduodenoscopy (EGD) History of tubal ligation H/O cataract History of tonsillectomy Social History Smoking Status: Former smoker ROS ROS ED Constitutional Constitutional ED: Denies chills, fever(s), subjective, sweats or weight loss Eyes Eyes: Reports none ENT ENT ED: Denies ear pain, rhinorrhea or sore throat Cardiovascular Cardiovascular: Reports as per HPI; Denies orthopnea or paroxysmal nocturnal dyspnea Respiratory/Chest Respiratory/Chest: Denies cough, dyspnea, dyspnea on exertion, orthopnea or paroxysmal nocturnal dyspnea Gastrointestinal Gastrointestinal: Reports diarrhea, nausea and vomiting; Denies abdominal pain, constipation or melena Genitourinary Genitourinary ED: Denies dysuria, hematuria or urinary frequency Musculoskeletal Musculoskeletal: Denies back pain or neck pain Integumentary Denies rash Neurologic Neurologic: Denies headache(s) or paresthesias Psychiatric Psychiatric: Denies anxiety or depression Endocrine Endocrinology: Denies cold intolerance or heat intolerance Hematologic/Lymphatic Hematologic/Lymphatic: Denies easy bleeding or easy bruising Allergic/Immunologic Allergic/Immunologic ED: Denies mouth swelling or tongue swelling EXAM Physical Exam Const Vital Signs: 11/30/23 12:05 11/30/23 12:05 Temperature 99.3 F H Temperature Source Temporal Pulse Rate 62 Respiratory Rate 16 Respiratory Effort Normal Blood Pressure 129/68 H Blood Pressure Mean 88 Pulse Ox 98 Oxygen Delivery Method Room Air Positive well nourished and well developed General Appearance ED: well developed, NAD and pallor HEENT Reports TM's clear and moist mucous membranes normocephalic and atraumatic Tympanic Membrane ED: Yes TM's clear Eyes PERRL and EOMs intact bilaterally General Eye ED: Yes pale conjunctiva; Negative for scleral icterus Neck no lymphadenopathy and supple Chest Wall inspection of chest normal and palpation of chest normal Chest Narrative: Pain palpation over the body of the sternum. There is no crepitus or subcutaneous air. Resp normal respiratory effort and clear to auscultation bilaterally Cardio regular rate, regular rhythm, S1 normal heart sound, S2 normal heart sound and no murmurs Peripheral Pulses: pulses 2+ throughout GI normal to inspection, nondistended, normoactive bowel sounds, soft to palpation, non-tender, non-distended and hepatosplenomegaly Back/Spine no CVA tenderness and no thoracic nor lumbar tenderness General Back: Negative for CVA tenderness Extremity normal to inspection Neuro oriented x3, CN's II-XII intact bilaterally and no sensory deficits noted Sensorium / Orientation: awake and alert Psych mental status grossly normal Skin no rashes or lesions noted and no wounds General Skin Exam: pallor; Negative for jaundice MDM MDM MDM Narrative Medical decision making narrative: Fax from Dr. Eaton's office were reviewed. Patient did not describe a stabbing pain. She states she has a point tenderness. My concern is that this may represent a pathologic fracture due to her history of motor myeloma. He does appear pale. Will obtain CBC to assess H&H as well as white count differential. Because she has history multiple Aloma will obtain a BMP in light of the history of vomiting and diarrhea this morning to assess renal function. Would not expect any increase due to 1 episode of vomiting and diarrhea. Prior records were reviewed. History & Record Review Additional record(s) reviewed:: Prior outpatient record, Prior ED visit and Prior labs Lab Data Attestation: I reviewed the patient's lab results. Lab results narrative: Patient has approxi-1 g drop in her hemoglobin with an H&H 10.7 and 32.2 with normal indices. Basic metabolic panel was remarkable for potassium of 2.9. BUN and creatinine of 16 and 2.02. Glucose is 172. CO2 anion gap is normal. Labs: Laboratory Results - last 24 hr 11/30/23 12:21 WBC 7.9 RBC 3.49 L Hgb 10.7 L Hct 32.2 L MCV 92.3 MCH 30.7 MCHC 33.2 RDW Std Deviation 53.7 H RDW Coeff of Aurelia 16.0 H Plt Count 228 MPV 12.0 Immature Gran % (Auto) 1.900 H Neut % (Auto) 79.1 H Lymph % (Auto) 11.5 L [place] % (Auto) 7.2 Eos % (Auto) 0.0 Baso % (Auto) 0.3 Absolute Neuts (auto) 6.3 Absolute Lymphs (auto) 0.91 Nucleated RBC % 0 Sodium 136 Potassium 2.9 L Chloride 105 Carbon Dioxide 23.0 Anion Gap 8 BUN 16 Creatinine 2.02 H Estim Creat Clear Calc 19.10 Est GFR (MDRD) Af Amer 31 L Est GFR (MDRD) Non-Af 25 L BUN/Creatinine Ratio 7.9 L Glucose 172 H Calcium 8.4 L Radiography Chest X-Ray - ED: 2 View and Read by ED Physician (2 view x-ray of the chest reveals no evidence of sternal fracture. There is no evidence of rib fractures. There is no pneumothorax, hemothorax or infiltrate noted. Cardiac silhouette size normal. Hilum is normal.) Management Discussion w/another healthcare provider: Other (Her oncologist Dr. Harshil Eaton was contacted because of the change in her H&H and creatinine. Her creatinine is an acute finding. Her H&H is down 1 g per records shared with Dr. Addison haque. Plan is discharged to home he will contact her for follow-up labs and testing.) Discharge Plan Triage Chief Complaint: Chest Pain ED Provider: Barrie Sprague Dx/Rx/DC Orders Clinical Impression: Acute chest wall pain, Multiple myeloma, HTN (hypertension), Lambda light chain disease, Multiple myeloma in remission, Acute kidney injury, Acute on chronic anemia Instructions: ED Chest Pain, Noncardiac, ED Renal Insufficiency Prescriptions: No Action cholecalciferol (vitamin D3) 1,000 UNIT tablet 2,000 unit PO DAILY Patient Comments: supplement amlodipine 5 MG tablet 5 mg PO DAILY pravastatin 40 MG tablet 40 mg PO QHS multivitamin [Daily Multi-Vitamin] Tablet 1 tab PO DAILY Eye Multivitamin 2,148 mcg-113 mg-45 mg-17.4mg tablet 2 tab PO BID Rx Instructions: administer with AM and PM meals amoxicillin-pot clavulanate 875-125 mg tablet 1 tab PO BID 10 Days Qty: 20 0RF oxycodone-acetaminophen [Percocet] 5-325 mg tablet 1 tab PO Q6H PRN (Reason: pain) 3 Days Qty: 12 0RF lenalidomide 20 mg capsule PO Primary Care Provider: Polo Fuentes Referrals: Harshil Eaton MD [Med Staff - Active Staff] - 3-5 Days Polo Fuentes MD [Primary Care Provider] - Print Language: Micronesian Disposition Disposition: Home, Self Care
--- NOTE | 2023-11-30 13:19 | ED.RN ---
Dr Eaton called for Dr Sprague
[2023-11-30 13:30] VITALS: BP 116/63; RESP 18; TEMP 37.9
== END 2023-11-30 13:47 | disposition home or self-care (01) ==
PROVIDERS: Emergency Provider Emergency Medicine; PCP Family Medicine; Visit Provider Emergency Medicine
DX: R07.89 Other chest pain (principal); C90.01 Multiple myeloma in remission; N17.9 Acute kidney failure, unspecified; D64.9 Anemia, unspecified; E78.00 Pure hypercholesterolemia, unspecified; I10 Essential (primary) hypertension; N39.46 Mixed incontinence; M19.90 Unspecified osteoarthritis, unspecified site; H35.30 Unspecified macular degeneration; M81.0 Age-related osteoporosis without current pathological fracture; Z79.899 Other long term (current) drug therapy; Z87.891 Personal history of nicotine dependence
CPT/HCPCS: 36415; 71046; 80048; 85025; 99282; A4216

== ENCOUNTER → 2024-01-10 | Outpatient (CLI) | payer MEDICARE, SELFPAY | END | disposition home or self-care (01) | LOC: LABSPEC 13:51 | PROVIDERS: PCP Family Medicine; Referring Provider Family Medicine; Visit Provider Family Medicine | DX: R39.9 Unspecified symptoms and signs involving the genitourinary system (principal) | CPT/HCPCS: 87077; 87086; 87088; 87186 ==

== ENCOUNTER → 2024-01-21 | Outpatient (CLI) | payer MEDICARE, SELFPAY ==
[2024-01-21 11:25] LABS: ALB/GLOB Ratio 0.8 RATIO (0.9-2.4); AST(SGOT) 19 U/L (15-37); Alanine Aminotransfer ALT/SGPT 13 U/L (13-56); Albumin, Serum 3.3 g/dL (3.2-5.0); Alkaline Phosphatase 68 U/L (45-117); Anion Gap 4 (5-15); BUN 22 mg/dL (7-18); BUN/Creat Ratio 21.6 RATIO (10-20); Calcium,Total 9.5 mg/dL (8.5-10.1); Chloride 108 mmol/L (98-107); Cholesterol 146 mg/dL (200); Creatinine, Serum 1.02 mg/dL (0.55-1.02); EST Glomerular Filtration Rate 55 mL/min (>60); Est Glom Filt Rate - Afr Amer 67 mL/min (>60); Globulin 3.9 g/dL (2.2-4.2); Glucose 99 mg/dL (74-106); High Density Lipoprotein 71 mg/dL; Potassium 3.4 mmol/L (3.5-5.1); Protein, Total 7.2 g/dL (6.4-8.2); Sodium Level 140 mmol/L (136-145); Triglycerides 146 mg/dL; Very Low Density Lipoprotein 29 mg/dL (5-40)
== END | disposition home or self-care (01) ==
LOC: MFPLAB 08:31
PROVIDERS: PCP Family Medicine; Visit Provider Family Medicine
DX: I10 Essential (primary) hypertension (principal)
CPT/HCPCS: 36415; 80053; 80061

== ENCOUNTER → 2024-11-25 | Outpatient (CLI) | payer MEDICARE, SELFPAY ==
[2024-11-25 09:33] LABS: Anion Gap 10 (5-15); BUN 19 mg/dL (4-19); BUN/Creat Ratio 19.9 RATIO (10-20); Calcium,Total 8.2 mg/dL (7.6-11.0); Carbon Dioxide 23.9 mmol/L (21.0-32.0); Chloride 106 mmol/L (98-108); Glucose 103 mg/dL (70-99); Potassium 3.2 mmol/L (3.3-5.1)
[2024-11-25 11:44] LABS: Creatinine, Urine (random) 107.00 mg/dL (28.00-217.00); Protein, Urine (Random) 20.4 mg/dL (0.0-12.0); Protein:Creat Ratio 191 mg/g CRE (0-200)
== END | disposition home or self-care (01) ==
LOC: LAB 08:05
PROVIDERS: PCP Family Medicine; Referring Provider Internal Medicine Nephrology; Visit Provider Internal Medicine Nephrology
DX: N18.31 Chronic kidney disease, stage 3a (principal)
CPT/HCPCS: 36415; 80048; 82570; 84156

== ENCOUNTER → 2025-01-19 | Outpatient (CLI) | payer MEDICARE, SELFPAY ==
[2025-01-19 13:04] LABS: AST(SGOT) 23 U/L (<=31); Alanine Aminotransfer ALT/SGPT 8 U/L (<=34); Albumin, Serum 3.7 g/dL (3.4-4.8); Alkaline Phosphatase 81 U/L (35-104); Anion Gap 10 (5-15); BUN 19 mg/dL (4-19); BUN/Creat Ratio 20.8 RATIO (10-20); Calcium,Total 8.6 mg/dL (7.6-11.0); Carbon Dioxide 25.0 mmol/L (21.0-32.0); Chloride 104 mmol/L (98-108); Cholesterol 133 mg/dL (<=200); Globulin 3.0 g/dL (2.2-4.2); Glucose 92 mg/dL (70-99); Low Density Lipoprotein Calc. 37 mg/dL; Potassium 3.2 mmol/L (3.3-5.1); Triglycerides 86 mg/dL; Very Low Density Lipoprotein 17 mg/dL (5-40); cholesterol:hdl ratio screen 1.69
== END | disposition home or self-care (01) ==
LOC: MFPLAB 09:52
PROVIDERS: PCP Family Medicine; Visit Provider Family Medicine
DX: I10 Essential (primary) hypertension (principal); E78.5 Hyperlipidemia, unspecified
CPT/HCPCS: 36415; 80053; 80061

== ENCOUNTER → 2025-01-21 | Outpatient (CLI) | payer MEDICARE, SELFPAY ==
--- NOTE | 2025-01-21 10:16 | BI_ITS ---
EXAM: SCRN MAMM (CAD)W/WAQAS BILAT DATE: 01/21/2025 CLINICAL HISTORY: F, Age 79 y/o , SCREENING Aunts with breast cancer. TECHNIQUE: Procedure Code: [id number] Modality: MG Procedure: SCRN MAMM (CAD)W/WAQAS BILAT COMPARISON: Prior exam(s) dated October 23, 2023.. FINDINGS: TISSUE DENSITY: There are scattered areas of fibroglandular density. Bilateral Breast Mammographic Findings: No significant masses, calcifications or other abnormalities are identified. No suspicious masses, areas of developing architectural distortion, or suspicious calcifications. There has been no significant interval change. BI/SCRN MAMM (CAD)W/WAQAS BILAT IMPRESSION: Stable bilateral screening mammogram. OVERALL FINAL ASSESSMENT BI-RADS 1: NEGATIVE. RECOMMENDATION: Routine annual follow-up in 1 Year Additional Recommendation none A letter with findings and recommendations will be mailed to the patient. Reading Location: [place] [id number]
== END | disposition home or self-care (01) ==
LOC: OPBI 10:15
PROVIDERS: PCP Family Medicine; Referring Provider Family Medicine; Visit Provider Family Medicine
DX: Z12.31 Encounter for screening mammogram for malignant neoplasm of breast (principal); Z80.3 Family history of malignant neoplasm of breast
CPT/HCPCS: 77063; 77067